=== PATIENT | female | born 2000 | race Caucasian/White ===

== ENCOUNTER 2023-06-12 13:11 | Emergency (ER) | payer MEDICAID, SELFPAY ==
[2023-06-12 13:18] VITALS: BP 155/102; PULSE 98; RESP 15; O2SAT 99; BMI 33.9
--- NOTE | 2023-06-12 13:25 | XR_ITS ---
WS: [id number] EXAMINATION: XR toe LT min 2V [id number] REASON FOR EXAM: injury/trauma; great toe COMPARISON: None available. ORDER DATE: 06/12/2023 1:25 PM FINDINGS: There is no sign of any acute osseous or articular abnormality. There are no specific soft tissue abn ormalities. IMPRESSION: No acute change.
--- NOTE | 2023-06-12 13:25 | W.ED.LOWEXIN ---
HPI - Extremity Injury (Lower) General: Chief Complaint: Extremity Injury, Lower Stated Complaint: left foot toe injury Time Seen by Provider: 06/12/23 13:13 Source: patient Mode of arrival: ambulatory Limitations: no limitations History of Present Illness: Patient is a 23-year-old female presents to ED today for evaluation of a left great toe injury. Patient states her and her were putting together a box spring/bedframe when one of the edges came down on her left great toe partially ripping the toenail off. This occurred two days ago. She states the nail is still attached at the cuticle and she trimmed/cut off the avulsed portion so it wouldn't get caught on anything. She is here secondary to pain. MD complaint: foot injury Onset (ago): day(s) Injury: Left: foot (great toe) Type of Injury: blunt Place: home Severity: moderate Relieving factors: immobilization Exacerbating factors: weight bearing Context: direct blow Associated symptoms: Reports no associated symptoms Other symptoms: none Review of Systems Musc: Reports: extremity pain (L great toe); Denies: extremity swelling Neuro: Denies: numbness in extremities or sensory changes Physical Exam Const: COMMON NORMALS: no acute distress, average body habitus, patient oriented x3, no limitations, alert and well nourished Extremity: COMMON NORMALS: full ROM, capillary refill normal, no joint enlargement, no clubbing, cyanosis or edema and no pedal edema GENERAL: Yes normal exam except as noted LEFT LOWER EXTREMITY: Yes foot & digits OTHER: pt has a partial avulsion to L great nail from nail bed; most of nail has been removed/trimmed by patient; entire nail is still attached at the nail base/fold/no damage to nail matrix; no swelling, redness, warmth, drainage noted Neuro: COMMON NORMALS: patient oriented x3 SENSORIUM/ORIENTATION: Yes alert Course Vital Signs: Vital signs: Vital Signs Pulse Rate 98 06/12/23 13:18 Respiratory Rate 15 06/12/23 13:18 Blood Pressure 155/102 06/12/23 13:18 Pulse Oximetry 99 06/12/23 13:18 Oxygen Delivery Me thod Room Air 06/12/23 13:18 MDM - Extremity Injury (Lower) Medical Decision Making XR negative. No infection. Patient is requesting something for pain-will write for small amount of tylenol 3s. Return to ED precautions given. XR interpretation done by ED provider, pending radiology final review Discharge Plan Discharge Patient Disposition: Home Clinical Impression: Contusion of great toe of left foot Qualifiers: Encounter type: initial encounter Damage to nail status: with damage Qualified Code(s): S90.212A - Contusion of left great toe with damage to nail, initial encounter Nail avulsion of toe Qualifiers: Encounter type: initial encounter Qualified Code(s): S91.209A - Unspecified open wound of unspecified toe(s) with damage to nail, initial encounter Condition: Stable Prescriptions: New acetaminophen-codeine 300-30 mg tablet 1 tab PO Q6H PRN (Reason: pain) Qty: 10 0RF Discharge Orders: Discharge ED (Routine); Ordered 06/12/23 Ordered By: Joellen Milan Activity Restrictions/Additional Instructions: As we discussed begin soaking the toe in Epsom salt or warm soapy water to help prevent infection. Nothing to suggest infection at this time. Monitor for redness, drainage, odor, streaking up your foot or leg, fevers, or any other concerns you may have. Please seek medical reevaluation if these occur. As we discussed your x-ray was negative for fracture. Coding Level of Care Code ED Orientation & Mobility Specialist for Inessa Munoz
== END 2023-06-12 14:19 | disposition home or self-care (01) ==
PROVIDERS: Emergency Provider Physician Assistant
DX: S90.212A Contusion of left great toe with damage to nail, initial encounter (principal); W20.8XXA Other cause of strike by thrown, projected or falling object, initial encounter
CPT/HCPCS: 73660; 99283

== ENCOUNTER 2023-06-13 17:56 | Emergency (ER) | payer MEDICAID, SELFPAY ==
[2023-06-13 18:02] VITALS: BP 168/97; PULSE 92; RESP 16; TEMP 36.7; O2SAT 100; BMI 33.9
--- NOTE | 2023-06-13 18:15 | W.ED.ALLEREA ---
HPI - Allergic Reaction General: Chief complaint: Allergic Reaction Stated complaint: rash Time Seen by Provider: 06/13/23 18:02 History of Present Illness: HPI narrative: 23-year-old female comes in today for complaints of itching. Patient also reports a light rash that comes and goes. This started today after patient took a dose of Tylenol 3. Patient appears nontoxic. Patient appears in mild to no pain. No respiratory difficulty is noted. Patient is alert and oriented. Patient was started on Tylenol 3 yesterday for a injury to the left great toe. Patient 2 days prior had something dropped on her toe which caused the nail to loosen. Exam today notes no redness or erythema to the nail but does have some distal bruising. Patient appears to have onychomycosis with discoloration of the nail and loss of granulation tissue for the nail bed. Associated symptoms: Deny nausea or vomiting Review of Systems Const: Denies: fever(s) GI: Denies: nausea or vomiting Skin/Breast: Reports: other (Nail loss left great toe) Physical Exam Const: COMMON NORMALS: alert Neck/C-Spine: COMMON NORMALS: full ROM Resp: COMMON NORMALS: normal respiratory effort Extremity: COMMON NORMALS: full ROM Neuro: SENSORIUM/ORIENTATION: Yes alert Skin: NARRATIVE SKIN EXAM: Dry skin, abrasions from scratching, no urticaria or obvious rash. Course Vital Signs: Vital signs: Vital Signs Temperature 98.0 F 06/13/23 18:02 Pulse Rate 92 06/13/23 18:02 Respiratory Rate 16 06/13/23 18:02 Blood Pressure 168/97 06/13/23 18:02 Pulse Oximetry 100 06/13/23 18:02 Oxygen Delivery Me thod Room Air 06/13/23 18:02 MDM - Allergic Reaction Medical Decision Making Patient comes in due to itching from the use of codeine. On exam respirations are even lungs are clear to auscultation. Skin is warm and dry. Vital signs are normal. Posterior pharynx is normal. Patient has some dry skin with abrasions from scratching. Differential diagnosis includes itchy skin, eczema, adverse drug effect, allergic reaction, anaphylaxis. No signs of anaphylaxis or severe reaction is noted. Believe the patient probably just has some itchy skin secondary to codeine use. Recommended cessation of codeine. Patient was written a prescription for hydrocodone which she has tolerated before in the past. Recommend follow-up with podiatry for further evaluation of the nail and probable onychomycosis. Patient reported understanding of care plan and need for follow-up or return to the ER. No radiology studies performed this visit Discharge Plan Discharge Patient Disposition: Home Clinical Impression: Nail avulsion of toe, Onychomycosis Adverse drug effect Qualifiers: Encounter type: initial encounter Qualified Code(s): T50.905A - Adverse effect of unspecified drugs, medicaments and biological substances, initial encounter Condition: Stable Prescriptions: New hydrocodone-acetaminophen 5-325 mg tablet 1 tab PO Q6H PRN (Reason: pain (scale score 7-10)) Qty: 7 0RF Discontinued acetaminophen-codeine 300-30 mg tablet 1 tab PO Q6H PRN (Reason: pain) Qty: 10 0RF Discharge Orders: Discharge ED (Routine); Ordered 06/13/23 Ordered By: Ayush Bell Referrals: Jadiel Jacob DPM [Physician] - Discharge Diet: Usual diet Discharge Activity: Increase activity as tolerated Patient Instructions: Itchy Skin (ED), Opioid Safety Activity Restrictions/Additional Instructions: Avoid codeine. Use Claritin, Zyrtec, or Benadryl as needed for itching. Drink plenty of water and fluids. Coating sometimes can cause itching of the skin although it does not appear to be a true allergy but it can be very bothersome. I would recommend avoiding codeine. Use acetaminophen and ibuprofen to control pain. We can try some hydrocodone for severe pain. Drink plenty of water and fluids with medication. Use an emollient lotion to help with the itching and discomfort. Follow-up with primary care for further instructions. Follow-up with podiatry for further evaluation of your toenail fungus. Coding Level of Care Code ED Training And Documentation Specialist for Inessa Munoz
== END 2023-06-13 18:43 | disposition home or self-care (01) ==
PROVIDERS: Emergency Provider Nurse Practitioner Family
DX: B35.1 Tinea unguium (principal); S91.202A Unspecified open wound of left great toe with damage to nail, initial encounter; T40.2X5A Adverse effect of other opioids, initial encounter; X58.XXXA Exposure to other specified factors, initial encounter
CPT/HCPCS: 99283

== ENCOUNTER 2023-07-22 21:02 | Emergency (ER) | payer MEDICAID, SELFPAY ==
[2023-07-22 21:09] VITALS: BP 152/92; PULSE 105; RESP 18; TEMP 36.4; O2SAT 100; BMI 33.9
--- NOTE | 2023-07-22 21:22 | USR_ITS ---
PROCEDURE INFORMATION: Exam: US Pelvis Complete, Transabdominal and US Pelvis, Transvaginal Exam date and time: 07/22/2023 9:46 PM Age: 23 years old Clinical indication: Pelvic pain; Patient HX: Is this patient . Patient denies possibility but quant hcg = 1.0. Is this artifactual ? ; additional info: Abd pain/vag bleeding LABS AND CLINICAL REPORTS: Serum Choriogonadotropin (HCG): 1 mIU/mL Last menstrual period start date: 07/10/2023 TECHNIQUE: Imaging protocol: Real-time complete transabdominal and transvaginal pelvic ultrasound with image documentation. Transvaginal imaging was used for better evaluation of the endometrium, adnexa, and/or cervix. COMPARISON: US pelvic complete* [id number] 12/05/2017 8:38 PM FINDINGS: Uterus: Uterus measures 9.8 cm x 4.8 cm x 3 cm. Endometrial thickness 4.6 mm. Anterior myometrial fibroids measuring 1.6 cm and 1.4 cm Right ovary/adnexa: Right ovary measures 6.4 cm x 6.5 cm x 5.1 cm. Right ovarian volume is 110 mL. 5.9 cm simple anechoic right ovarian cyst. Normal parenchymal blood flow. Left ovary/adnexa: Left ovary measures 2.7 cm x 2.2 cm x 2.8 cm. Left ovarian volume is 8.6 mL. Normal parenchymal blood flow. Intraperitoneal space: Small amount of right adnexal fluid. Urinary bladder: Normal. US/US pelvic complete* [id number] IMPRESSION: 1. 5.9 cm anechoic right ovarian cyst. Benign simple cyst. Clinically inconsequential finding. No follow-up is needed. (Reference: Vee, 2019) 2. No intrauterine or ectopic gestation visualized. References: Vee Schumacher, et al. Simple Adnexal Cysts: SRU Consensus Conference Update on Follow-up and Reporting. Radiology. 2019;293(2):359-371.
--- NOTE | 2023-07-22 21:23 | W.ED.FEMALGU ---
HPI - Female Genitourinary General: Chief complaint: Vaginal Bleeding Stated complaint: abdominal pain, heavy bleeding Time Seen by Provider: 07/22/23 21:13 Source: patient Mode of arrival: ambulatory Limitations: no limitations History of Present Illness: 23-year-old female states that she started having some lower abdominal cramping roughly 2 hours ago she had a she states a gush of blood of vaginal bleeding that ran down her legs states the bleeding has since stopped but she some lower abdominal pain she rates a 6 out of 10 she has had a history of ovarian cyst she does not believe that she is . Denies any fevers. Associated symptoms: Reports abdominal pain; Deny headache(s) or nausea Review of Systems Const: Denies: fever(s), chills, body aches or change in appetite ENMT: Denies: throat pain or dental pain Card: Denies: chest pain Resp: Denies: dyspnea GI: Reports: abdominal pain; Denies: nausea, vomiting or diarrhea : Reports: vaginal bleeding; Denies: dysuria Musc: Denies: neck pain or back pain Skin/Breast: Denies: rash Neuro: Denies: headache(s) Physical Exam Const: COMMON NORMALS: no acute distress, patient oriented x3 and healthy appearing HENMT: COMMON NORMALS: normocephalic and atraumatic HEAD & SCALP: normocephalic and atraumatic Eye: COMMON NORMALS: Equal, round and reactive pupils present and EOMs intact bilaterally PUPIL: Yes Equal, round and reactive pupils present Neck/C-Spine: COMMON NORMALS: full ROM and supple Chest: COMMONS NORMALS: normal inspection of the chest and normal palpation of entire chest wall Resp: COMMON NORMALS: normal respiratory effort, No retractions, No use of accessory muscles and clear to auscultation bilaterally AUSCULTATION: clear to auscultation bilaterally Cardio: COMMON NORMALS: regular rate, regular rhythm and No murmurs present (Cardio) RATE: regular rate RHYTHM: regular rhythm GI: COMMON NORMALS: Normal to inspection, nondistended, normoactive bowel sounds present, Soft to palpation, non-tender and no masses PALPATION: Yes Soft to palpation Extremity: COMMON NORMALS: normal to inspection and full ROM Neuro: COMMON NORMALS: patient oriented x3, moves all extremities and no focal motor deficits Psych: COMMON NORMALS: mental status grossly normal, Normal thought process present and cooperative THOUGHT PROCESS: Normal thought process present Skin: COMMON NORMALS: no rashes or lesions noted and no wounds GENERAL SKIN EXAM: no rashes or lesions noted Course Vital Signs: Vital signs: Vital Signs Temperature 97.6 F 07/22/23 21:09 Pulse Rate 78 07/22/23 22:22 Respiratory Rate 16 07/22/23 22:22 Blood Pressure 133/57 07/22/23 22:22 Pulse Oximetry 96 07/22/23 22:22 MDM - Female Medical Decision Making Patient presents with abdominal pain along with vaginal bleeding she is not white counts normal ultrasound did show a right ovarian cyst likely causing her pain she has no signs of appendicitis her pain has improved here we will prescribe her pain meds we will get her follow-up with OB she is return if worsening she understands agree to plan Medical Records I reviewed the patient's medical records. Lab Data I reviewed the patient's lab results. 07/22/23 21:42 07/22/23 21:42 Radiology Impressions Pelvis Ultrasound 07/22/23 21:22 IMPRESSION: 1. 5.9 cm anechoic right ovarian cyst. Benign simple cyst. Clinically inconsequential finding. No follow-up is needed. (Reference: Vee, 2019) 2. No intrauterine or ectopic gestation visualized. References: Vee Schumacher, et al. Simple Adnexal Cysts: SRU Consensus Conference Update on Follow-up and Reporting. Radiology. 2019;293(2):359-371. Laboratory Results WBC 9.20 10^3/uL (3.29-11.43) 07/22/23 21:42 RBC 4.74 10^6/uL (3.85-5.65) 07/22/23 21:42 Hgb 12.00 g/dL (11.27-16.99) 07/22/23 21:42 Hct 38.3 % (36-47) 07/22/23 21:42 MCV 80.8 fl (85-98) L 07/22/23 21:42 MCH 25.3 pg (27-33) L 07/22/23 21:42 MCHC 31.3 g/dL (30-55) 07/22/23 21:42 RDW 17.2 % (12.1-15.1) H 07/22/23 21:42 Plt Count 315 10^3/cmm (157-399) 07/22/23 21:42 MPV 10.5 fL (7.4-10.4) H 07/22/23 21:42 Neut % (Auto) 65.5 % 07/22/23 21:42 Lymph % (Auto) 27.1 % 07/22/23 21:42 [place] % (Auto) 4.9 % 07/22/23 21:42 Eos % (Auto) 1.5 % 07/22/23 21:42 Baso % (Auto) 0.7 % 07/22/23 21:42 Neut # (Auto) 6.03 10^3/uL (1.8-7.7) 07/22/23 21:42 Lymph # (Auto) 2.5 10^3/uL (0.8-4.8) 07/22/23 21:42 [place] # (Auto) 0.5 10^3/uL (0.2-0.9) 07/22/23 21:42 Eos # (Auto) 0.1 10^3/uL (0.0-0.8) 07/22/23 21:42 Baso # (Auto) 0.1 10^3/uL (0.0-0.1) 07/22/23 21:42 Nucleated RBC % (auto) 0 % 07/22/23 21:42 Nucleated RBCs # 0.0 /100WBC 07/22/23 21:42 Sodium 141 mmol/L (136-145) 07/22/23 21:42 Potassium 3.7 mmol/L (3.5-5.1) 07/22/23 21:42 Chloride 107 mmol/L (98-107) 07/22/23 21:42 Carbon Dioxide 22 mmol/L (22-29) 07/22/23 21:42 Anion Gap 15.7 (5-19) 07/22/23 21:42 BUN 9 mg/dL (6-20) 07/22/23 21:42 Creatinine 0.6 mg/dL (0.5-0.9) 07/22/23 21:42 GFR Calculation 121.8 mL/min (90-130) 07/22/23 21:42 Glucose 114 mg/dL (65-115) 07/22/23 21:42 Calculated Osmolality 292 mOsm/kg (285-295) 07/22/23 21:42 Calcium 9.4 mg/dL (8.5-10.5) 07/22/23 21:42 Total Bilirubin 0.2 mg/dL (0.15-1.2) 07/22/23 21:42 AST 24 U/L (0-32) 07/22/23 21:42 ALT 28 U/L (0-33) 07/22/23 21:42 Alkaline Phosphatase 86 U/L (35-105) 07/22/23 21:42 Total Protein 7.4 g/dL (6.6-8.7) 07/22/23 21:42 Albumin 4.2 g/dL (3.5-5.2) 07/22/23 21:42 Globulin 3.2 g/dL (1.3-4.6) 07/22/23 21:42 Ser , Semi-Qnt 1.00 mIU/mL 07/22/23 21:42 All radiology interpretation(s) finalized by discharge Discharge Plan Discharge Patient Disposition: Home Clinical Impression: Ovarian cyst Condition: Stable Prescriptions: Continued hydrocodone-acetaminophen 5-325 mg tablet 1 tab PO Q6H PRN (Reason: pain (scale score 7-10)) Qty: 7 0RF Discharge Orders: Discharge ED (Routine); Ordered 07/22/23 Ordered By: Sherley Sapp Referrals: Guillaume Cueto MD [Physician] - 1-3 days Discharge Diet: Advance as tolerated Discharge Activity: Resume usual activity Patient Instructions: Ovarian Cyst (ED) Coding Level of Care Code ED Roller Inspector for Inessa Munoz
[2023-07-22] MEDS: sodium chloride 0.9% 1,000 ML 999 ML IV (21:34)
[2023-07-22] MEDS: ondansetron 2 mg/ML SDV 2 mL 4 MG IVP (21:34)
[2023-07-22] MEDS: morphine 4 mg/mL SDV 1 mL IVP (21:34)
[2023-07-22 21:47] LABS: Basophils # 0.1 10^3/uL (0.0-0.1); Basophils % 0.7 %; Eosinophils # 0.1 10^3/uL (0.0-0.8); Eosinophils % 1.5 %; Hematocrit 38.3 % (36-47); Lymphocytes # 2.5 10^3/uL (0.8-4.8); Lymphocytes % 27.1 %; Mean Corpuscular HGB Conc 31.3 g/dL (30-55); Mean Corpuscular Hemoglobin 25.3 pg (27-33); Mean Corpuscular Volume 80.8 fl (85-98); Mean Platelet Volume 10.5 fL (7.4-10.4); Monocytes # 0.5 10^3/uL (0.2-0.9); Monocytes % 4.9 %; Neutrophils # 6.03 10^3/uL (1.8-7.7); Neutrophils % 65.5 %; Nucleated Red Blood Cells % 0 %; Platelet Count 315 10^3/cmm (157-399); Red Blood Count 4.74 10^6/uL (3.85-5.65); Red Cell Distribution Width 17.2 % (12.1-15.1)
[2023-07-22 21:56] VITALS: BP 150/105; PULSE 88; RESP 16; O2SAT 97
[2023-07-22 22:14] LABS: Alanine Aminotransferase 28 U/L (0-33); Albumin Level 4.2 g/dL (3.5-5.2); Alkaline Phosphatase 86 U/L (35-105); Anion Gap 15.7 (5-19); Aspartate Amino Transferase 24 U/L (0-32); Blood Urea Nitrogen 9 mg/dL (6-20); Calcium 9.4 mg/dL (8.5-10.5); Carbon Dioxide 22 mmol/L (22-29); Chloride 107 mmol/L (98-107); Globulin 3.2 g/dL (1.3-4.6); Glomerular Filtration Rate 121.8 mL/min (90-130); Glucose 114 mg/dL (65-115); Osmolality Calculated 292 mOsm/kg (285-295); Potassium 3.7 mmol/L (3.5-5.1); Sodium 141 mmol/L (136-145); Total Bilirubin 0.2 mg/dL (0.15-1.2); Total Protein 7.4 g/dL (6.6-8.7)
[2023-07-22 22:22] VITALS: BP 133/57; PULSE 78; RESP 16; O2SAT 96
[2023-07-22] MEDS: HYDROmorphone 1 mg/mL INJ 1 mL IVP (23:24)
[2023-07-22] MEDS: HYDROcodone-acetaminophen 5-325 mg Tablet 1 TAB PO (23:48)
[2023-07-22 23:49] VITALS: BP 133/57; PULSE 78; RESP 16; TEMP 36.4; O2SAT 96
--- NOTE | 2023-07-23 07:16 | DCPLANNER ---
Message sent to OBGYN clinic for follow up on ovarian cysts.
== END 2023-07-22 23:51 | disposition home or self-care (01) ==
PROVIDERS: Emergency Provider Emergency Medicine
DX: N83.291 Other ovarian cyst, right side (principal)
CPT/HCPCS: 76856; 80053; 84702; 85025; 96361; 96374; 96375; 99284; J1170; J2270; J2405; J7030

== ENCOUNTER → 2023-08-05 16:34 | Outpatient (BNVA) | payer MEDICAID, SELFPAY | PROVIDERS: Referring Provider Emergency Medicine; Visit Provider Obstetrics & Gynecology | DX: Z12.4 Encounter for screening for malignant neoplasm of cervix (principal); Z32.00 Encounter for pregnancy test, result unknown; Z30.9 Encounter for contraceptive management, unspecified | CPT/HCPCS: 81025; 87624 ==

== ENCOUNTER 2023-08-13 09:43 | Emergency (ER) | payer MEDICAID, SELFPAY ==
[2023-08-13 09:47] VITALS: BP 164/97; PULSE 109; RESP 16; TEMP 37.1; O2SAT 99; BMI 35.5
--- NOTE | 2023-08-13 09:50 | ED_ITS ---
HPI - Abdominal Pain 2 General: Chief Complaint: Abdominal Pain Stated Complaint: abd pain Time Seen by Provider: 08/13/23 09:46 Source: patient Mode of arrival: ambulatory Limitations: no limitations History of Present Illness: 23-year-old female states that she has b een having right lower quadrant pain since morning. States pains been sharp in nature rates it a 7 out of 10 she denies any radiation of her pain denies any dysuria denies any vomiting or fevers. Does have a history of ovarian cysts. Associated Symptoms: Denies chills, diarrhea, dysuria, fever(s), nausea and vomiting Review of Systems 2 Const: Denies: fever(s), chills, body aches or change in appetite Eyes: Denies: blurry vision or eye discomfort ENMT: Denies: throat pain or dental pain Card: Denies: chest pain Resp: Denies: dyspnea GI: Reports: abdominal pain; Denies: nausea, vomiting or diarrhea : Denies: dysuria Musc: Denies: neck pain or back pain Skin/Breast: Denies: rash Neuro: Denies: headache(s) PFSH ED 2 PFSH: Medical History Psychiatric care Family History Denies family history of Colon cancer Ovarian cancer Diabetes Heart disease Breast cancer Hypertension Uterine cancer Thyroid disease Stroke Physical Exam 2 Const: COMMON NORMALS: no acute distress, patient oriented x3 and healthy appearing HENMT: COMMON NORMALS: normocephalic and atraumatic HEAD & SCALP: n ormocephalic and atraumatic Eye: COMMON NORMALS: Equal, round and reactive pupils present and EOMs intact bilaterally PUPIL: Yes Equal, round and reactive pupils present Neck/C-Spine: COMMON NORMALS: full ROM and supple Chest: COMMONS NORMALS: normal inspection of the chest Resp: COMMON NORMALS: normal respiratory effort Cardio: COMMON NORMALS: regular rate, regular rhythm and No murmurs present (Cardio) RATE: regular rate RHYTHM: regular rhythm GI: COMMON NORMALS: Normal to inspection, nondistended, normoactive bowel sounds present, Soft to palpation and no masses PALPATION: Yes Soft to palpation and Yes Tenderness to palpation present (GI) Details: RLQ Extremity: COMMON NORMALS: normal to inspection and full ROM Neuro: COMMON NORMALS: patient oriented x3, moves all extremities and no focal motor deficits Psych: COMMON NORMALS: mental status grossly normal, Normal thought process present and cooperative THOUGHT PROCESS: Normal thought process present Skin: COMMON NORMALS: no rashes or lesions noted and no wounds GENERAL SKIN EXAM: no rashes or lesions noted Course 2 Vital Signs: Vital signs: Vital Signs Temperature 98.7 F 08/13/23 09:47 Pulse Rate 109 H 08/13/23 09:47 Respiratory Rate 16 08/13/23 09:47 Blood Pressure 164/97 08/13/23 09:47 Pulse Oximetry 99 08/13/23 09:47 Oxygen Delivery Me thod Room Air 08/13/23 09:47 MDM - Abdominal Pain Medical Decision Making Patient presents here with abdominal pain CT scan blood work here is all normal she is well-appearing here exam is benign she is stable for discharge she is to follow-up with PCP and return if worsening. Medical Records I reviewed the patient's medical records. Lab Data I reviewed the patient's lab results. 08/13/23 10:05 08/13/23 10:05 Labs/Radiology: Laboratory Results WBC 9.12 10^3/uL (3.29-11.43) 08/13/23 10:05 RBC 4.81 10^6/uL (3.85-5.65) 08/13/23 10:05 Hgb 12.30 g/dL (11.27-16.99) 08/13/23 10:05 Hct 39.6 % (36-47) 08/13/23 10:05 MCV 82.3 fl (85-98) L 08/13/23 10:05 MCH 25.6 pg (27-33) L 08/13/23 10:05 MCHC 31.1 g/dL (30-55) 08/13/23 10:05 RDW 17.0 % (12.1-15.1) H 08/13/23 10:05 Plt Count 281 10^3/cmm (157-399) 08/13/23 10:05 MPV 10.6 fL (7.4-10.4) H 08/13/23 10:05 Neut % (Auto) 73.9 % 08/13/23 10:05 Lymph % (Auto) 18.8 % 08/13/23 10:05 [place] % (Auto) 5.4 % 08/13/23 10:05 Eos % (Auto) 1.1 % 08/13/23 10:05 Baso % (Auto) 0.5 % 08/13/23 10:05 Neut # (Auto) 6.74 10^3/uL (1.8-7.7) 08/13/23 10:05 Lymph # (Auto) 1.7 10^3/uL (0.8-4.8) 08/13/23 10:05 [place] # (Auto) 0.5 10^3/uL (0.2-0.9) 08/13/23 10:05 Eos # (Auto) 0.1 10^3/uL (0.0-0.8) 08/13/23 10:05 Baso # (Auto) 0.1 10^3/uL (0.0-0.1) 08/13/23 10:05 Nucleated RBC % (auto) 0 % 08/13/23 10:05 Nucleated RBCs # 0.0 /100WBC 08/13/23 10:05 Sodium 143 mmol/L (136-145) 08/13/23 10:05 Potassium 4.1 mmol/L (3.5-5.1) 08/13/23 10:05 Chloride 110 mmol/L (98-107) H 08/13/23 10:05 Carbon Dioxide 24 mmol/L (22-29) 08/13/23 10:05 Anion Gap 13.1 (5-19) 08/13/23 10:05 BUN 7 mg/dL (6-20) 08/13/23 10:05 Creatinine 0.7 mg/dL (0.5-0.9) 08/13/23 10:05 GFR Calculation 102.0 mL/min (90-130) 08/13/23 10:05 Glucose 107 mg/dL (65-115) 08/13/23 10:05 Calculated Osmolality 294 mOsm/kg (285-295) 08/13/23 10:05 Calcium 9.1 mg/dL (8.5-10.5) 08/13/23 10:05 Total Bilirubin 0.2 mg/dL (0.15-1.2) 08/13/23 10:05 AST 17 U/L (0-32) 08/13/23 10:05 ALT 18 U/L (0-33) 08/13/23 10:05 Alkaline Phosphatase 87 U/L (35-105) 08/13/23 10:05 Total Protein 6.8 g/dL (6.6-8.7) 08/13/23 10:05 Albumin 4.0 g/dL (3.5-5.2) 08/13/23 10:05 Globulin 2.8 g/dL (1.3-4.6) 08/13/23 10:05 Lipase 22 U/L (13-60) 08/13/23 10:05 HCG, Qual Negative (Negative) 08/13/23 10:05 All radiology interpretation(s) finalized by discharge Discharge Plan Discharge Patient Disposition: Home Clinical Impression: Abdominal pain Qualifiers: Abdominal location: right lower quadrant Qualified Code(s): R10.31 - Right lower quadrant pain Condition: Stable Prescriptions: New hydrocodone-acetaminophen 5-325 mg tablet 1 tab PO Q6H PRN (Reason: pain) Qty: 14 0RF ondansetron 4 mg tablet,disintegrating 4 mg PO Q6H PRN (Reason: nausea and vomiting) Qty: 14 0RF Discharge Orders: Discharge ED (Routine); Ordered 08/13/23 Ordered By: Sherley Sapp Referrals: Hieu Garvin MD [Primary Care Provider] - 1-3 days Discharge Diet: Advance as tolerated Discharge Activity: Resume usual activity Patient Instructions: Abdominal Pain (ED), Opioid Safety Coding Level of Care Code ED Radiology Aide for Inessa Munoz
--- NOTE | 2023-08-13 10:18 | CT_ITS ---
WS: [id number] CT ABDOMEN AND PELVIS WITH CONTRAST HISTORY: RIGHT lower quadrant abdominal pain. TECHNIQUE: Imaging performed of the abdomen and pelvis with IV contrast. Single phase imaging of the abdomen. Coronal and sagittal reformats are submitted. All CT scans at [facility] use at [address] one of these dose optimization techniques: automated exposure control; mA and/or kV adjustment per patient size (includes targeted exams where dose is matched to clinical indication); or iterative re construction. IV CONTRAST: Omnipaque 350; 100 mL IV. Oral contrast: No DLP: 1012.50 mGy.cm COMPARISON: 08/11/2018 Lower thorax: Lung bases are clear. Heart is normal size. No hiatal hernia. Liver/biliary system: Focal fatty sparing along the falciform ligament. Otherwise negative. Gallbladder: Normal. No gallstones or wall thickening. No pericholecystic fluid. Pancreas: Normal size pancreas and pancreatic duct. No adjacent inflammation. Spleen: Normal size spleen. No mass or infarct. Adrenal glands: Normal. Right kidney: Normal. Left kidney: Normal. Aorta: Normal. Lymphadenopathy: Numerous but small central mesenteric and RIGHT lower quadrant lymph nodes. Free fluid: None. GI tract: Normally distended stomach. No small bowel obstruction. Normal appendix. No submucosal shanti a or hyperemia. No diverticular disease. Abdominal wall: Fat containing umbilical hernia. Pelvis: No free fluid or adenopathy within the pelvis. Bones: Unremarkable. IMPRESSION: 1. No evidence for appendicitis or acute gastroenteritis. 2. No renal obstruction. 3. There are a few very small mesenteric and RIGHT lower quadrant lymph nodes which which can be see n with mesenteric adenitis. These were also present on the study of 08/11/2018.
[2023-08-13 10:19] LABS: Basophils # 0.1 10^3/uL (0.0-0.1); Basophils % 0.5 %; Eosinophils # 0.1 10^3/uL (0.0-0.8); Eosinophils % 1.1 %; Hematocrit 39.6 % (36-47); Lymphocytes # 1.7 10^3/uL (0.8-4.8); Lymphocytes % 18.8 %; Mean Corpuscular HGB Conc 31.1 g/dL (30-55); Mean Corpuscular Hemoglobin 25.6 pg (27-33); Mean Corpuscular Volume 82.3 fl (85-98); Mean Platelet Volume 10.6 fL (7.4-10.4); Monocytes # 0.5 10^3/uL (0.2-0.9); Monocytes % 5.4 %; Neutrophils # 6.74 10^3/uL (1.8-7.7); Neutrophils % 73.9 %; Nucleated Red Blood Cells % 0 %; Platelet Count 281 10^3/cmm (157-399); Red Blood Count 4.81 10^6/uL (3.85-5.65); White Blood Count 9.12 10^3/uL (3.29-11.43)
[2023-08-13 10:30] LABS: HCG, Serum Qual Negative (Negative)
[2023-08-13 10:32] LABS: Alanine Aminotransferase 18 U/L (0-33); Alkaline Phosphatase 87 U/L (35-105); Anion Gap 13.1 (5-19); Aspartate Amino Transferase 17 U/L (0-32); Blood Urea Nitrogen 7 mg/dL (6-20); Calcium 9.1 mg/dL (8.5-10.5); Carbon Dioxide 24 mmol/L (22-29); Chloride 110 mmol/L (98-107); Globulin 2.8 g/dL (1.3-4.6); Glucose 107 mg/dL (65-115); Lipase 22 U/L (13-60); Osmolality Calculated 294 mOsm/kg (285-295); Potassium 4.1 mmol/L (3.5-5.1); Sodium 143 mmol/L (136-145); Total Bilirubin 0.2 mg/dL (0.15-1.2); Total Protein 6.8 g/dL (6.6-8.7)
[2023-08-13] MEDS: iohexol 350 mg/mL 500 mL Btl (per mL) IV (10:54)
== END 2023-08-13 11:30 | disposition home or self-care (01) ==
PROVIDERS: Emergency Provider Emergency Medicine; PCP Family Medicine
DX: R10.31 Right lower quadrant pain (principal)
CPT/HCPCS: 36415; 74177; 80053; 83690; 84703; 85025; 99285; Q9967

== ENCOUNTER 2023-08-26 23:36 | Emergency (ER) | payer MEDICAID, SELFPAY ==
[2023-08-26 23:52] VITALS: BP 139/80; PULSE 84; RESP 16; TEMP 36.9; O2SAT 98; BMI 33.9
[2023-08-27 00:41] LABS: Basophils # 0.1 10^3/uL (0.0-0.1); Basophils % 0.9 %; Eosinophils # 0.1 10^3/uL (0.0-0.8); Eosinophils % 1.3 %; Hematocrit 36.2 % (36-47); Lymphocytes # 2.8 10^3/uL (0.8-4.8); Lymphocytes % 33.7 %; Mean Corpuscular HGB Conc 31.5 g/dL (30-55); Mean Corpuscular Hemoglobin 25.9 pg (27-33); Mean Corpuscular Volume 82.3 fl (85-98); Mean Platelet Volume 11.5 fL (7.4-10.4); Monocytes # 0.6 10^3/uL (0.2-0.9); Monocytes % 7.6 %; Neutrophils % 56.4 %; Nucleated Red Blood Cells % 0 %; Platelet Count 214 10^3/cmm (157-399); Red Cell Distribution Width 17.3 % (12.1-15.1); White Blood Count 8.16 10^3/uL (3.29-11.43)
--- NOTE | 2023-08-27 01:06 | ED_ITS ---
HPI - Female Genitourinary 2 General: Chief complaint: Urogenital-Female Stated complaint: Bleeding and Ovarian Cyst Time Seen by Provider: 08/26/23 23:42 History of Present Illness: Patient presents to the ER with complaints of heavy vaginal bleeding and ovarian cyst pain. Patient said her normal period ended 4 to 5 days ago. She started to have bleeding heavily today with through 3 diaper pads almost passed out and is also having nausea. Patient does states she sees Dr. Cueto and is going to have surgery on this in approximately 2 days. Our goal is just to get her pain under control so she can go have the surgery. Patient is already taken naproxen at home with no relief. Date of Last Menstrual Period: 08/16/23 Review of Systems 2 General: Reports: 10 or more systems reviewed and unremarkable except in HPI and below PFSH ED 2 PFSH: Medical History Psychiatric care Family History Denies family history of Colon cancer Ovarian cancer Diabetes Heart disease Breast cancer Hypertension Uterine cancer Thyroid disease Stroke Female Reproductive History: Date of last menstrual period: 08/16/23 Physical Exam 2 Const: COMMON NORMALS: no acute distress, average body habitus, patient oriented x3, no limitations, healthy appearing, alert and well nourished HENMT: COMMON NORMALS: normocephalic, atraumatic, hearing grossly normal bilaterally, external ears normal, Normal external nose present, moist oral mucous membranes and oropharynx normal HEAD & SCALP: normocephalic and atraumatic NOSE: Normal external nose present EXTERNAL EAR: Yes external ears normal Neck/C-Spine: COMMON NORMALS: no JVD Chest: COMMONS NORMALS: normal inspection of the chest and normal palpation of entire chest wall Resp: COMMON NORMALS: normal respiratory effort, No retractions, No use of accessory muscles and clear to auscultation bilaterally AUSCULTATION: clear to auscultation bilaterally Cardio: COMMON NORMALS: no JVD, regular rate, regular rhythm, S1 normal heart sound present, S2 normal heart sound present, No gallops present (Cardio), No clicks present (Cardio), No murmurs present (Cardio) and No rub (Cardio) R ATE: regular rate RHYTHM: regular rhythm HEART SOUNDS: S1 normal heart sound present and S2 normal heart sound present GI: COMMON NORMALS: Normal to inspection, nondistended, normoactive bowel sounds present, Soft to palpation, non-tender, No hepatosplenomegaly present and no masses PALPATION: Yes Soft to palpation and Yes No hepatosplenomegaly present Neuro: COMMON NORMALS: patient oriented x3 SENSORIUM/ORIENTATION: Yes alert Course 2 Vital Signs: Vital signs: Vital Signs Temperature 98.4 F 08/26/23 23:52 Pulse Rate 84 08/26/23 23:52 Respiratory Rate 16 08/26/23 23:52 Blood Pressure 139/80 08/26/23 23:52 Pulse Oximetry 98 08/26/23 23:52 Oxygen Delivery Me thod Room Air 08/26/23 23:52 MDM - Female Medical Decision Making Patient has a known ovarian cyst. Patient's been having menorrhagia heavy today. Patient has a appointment already for surgery by Dr. Cueto in 2 days. Patient was given Cornell to control pain here. Patient will be discharged home with a prescription for Cornell and is to keep her appointment with Dr. Cueto. Differential Diagnosis Unlikely abdominal pain, acute appendicitis, calculus of kidney, constipation, diverticulitis, endometriosis, gastroenteritis, pancreatitis or small bowel obstruction Medical Records I reviewed the patient's medical records. Lab Data I reviewed the patient's lab results. 08/27/23 00:27 08/27/23 00:27 Laboratory Results WBC 8.16 10^3/uL (3.29-11.43) 08/27/23 00:27 RBC 4.40 10^6/uL (3.85-5.65) 08/27/23 00:27 Hgb 11.40 g/dL (11.27-16.99) 08/27/23 00:27 Hct 36.2 % (36-47) 08/27/23 00: MCV 82.3 fl (85-98) L 08/27/23 00:27 MCH 25.9 pg (27-33) L 08/27/23 00: MCHC 31.5 g/dL (30-55) 08/27/23 00: RDW 17.3 % (12.1-15.1) H 08/27/23 00:27 Plt Count 214 10^3/cmm (157-399) 08/27/23 00: MPV 11.5 fL (7.4-10.4) H 08/27/23 00:27 Neut % (Auto) 56.4 % 08/27/23 00: Lymph % (Auto) 33.7 % 08/27/23 00: [place] % (Auto) 7.6 % 08/27/23 00: Eos % (Auto) 1.3 % 08/27/23 00: Baso % (Auto) 0.9 % 08/27/23 00: Neut # (Auto) 4.60 10^3/uL (1.8-7.7) 08/27/23 00: Lymph # (Auto) 2.8 10^3/uL (0.8-4.8) 08/27/23 00: [place] # (Auto) 0.6 10^3/uL (0.2-0.9) 08/27/23 00: Eos # (Auto) 0.1 10^3/uL (0.0-0.8) 08/27/23 00: Baso # (Auto) 0.1 10^3/uL (0.0-0.1) 08/27/23 00: Nucleated RBC % (auto) 0 % 08/27/23 00: Nucleated RBCs # 0.0 /100WBC 08/27/23 00: Sodium 141 mmol/L (136-145) 08/27/23 00: Potassium 4.0 mmol/L (3.5-5.1) 08/27/23 00: Chloride 108 mmol/L (98-107) H 08/27/23 00: Carbon Dioxide 24 mmol/L (22-29) 08/27/23 00: Anion Gap 13.0 (5-19) 08/27/23 00: BUN 10 mg/dL (6-20) 08/27/23 00: Creatinine 0.7 mg/dL (0.5-0.9) 08/27/23 00: GFR Calculation 102.0 mL/min (90-130) 08/27/23 00: Glucose 103 mg/dL (65-115) 08/27/23 00: Calculated Osmolality 291 mOsm/kg (285-295) 08/27/23 00:27 Calcium 9.2 mg/dL (8.5-10.5) 08/27/23 00:27 Total Bilirubin 0.2 mg/dL (0.15-1.2) 08/27/23 00:27 AST 16 U/L (0-32) 08/27/23 00:27 ALT 14 U/L (0-33) 08/27/23 00:27 Alkaline Phosphatase 74 U/L (35-105) 08/27/23 00:27 Total Protein 6.9 g/dL (6.6-8.7) 08/27/23 00:27 Albumin 4.0 g/dL (3.5-5.2) 08/27/23 00:27 Globulin 2.9 g/dL (1.3-4.6) 08/27/23 00:27 No radiology studies performed this visit Discharge Plan Discharge Patient Disposition: Home Clinical Impression: Ovarian cyst Qualifiers: Laterality: unspecified laterality Qualified Code(s): N83.209 - Unspecified ovarian cyst, unspecified side Menorrhagia Qualifiers: Menorrhagia type: with irregular cycle Qualified Code(s): N92.1 - Excessive and frequent menstruation with irregular cycle Condition: Stable Prescriptions: No Action escitalopram oxalate [Lexapro] 20 mg tablet 20 mg PO DAILY Qty: 30 1RF trazodone 50 mg tablet 100 mg PO .HS PRN (Reason: insomnia) Qty: 60 1RF propranolol 20 mg tablet 20 mg PO BID PRN (Reason: anxiety) Qty: 60 1RF hydrocodone-acetaminophen 5-325 mg tablet 1 tab PO Q6H PRN (Reason: pain) Qty: 14 0RF ondansetron 4 mg tablet,disintegrating 4 mg PO Q6H PRN (Reason: nausea and vomiting) Qty: 14 0RF Discharge Orders: Discharge ED (Routine); Ordered 08/27/23 Ordered By: Jamie Jose Referrals: Hieu Garvin MD [Primary Care Provider] - 1 week Patient Instructions: Ovarian Cyst (ED), Menorrhagia (ED), Opioid Safety, Pain Management Activity Restrictions/Additional Instructions: Please take your pain medicine as directed. Please follow keep your appointment with Dr. Cueto for surgery on . Please call his office first thing in the morning to discuss your pain and to get his recommendations. Coding Level of Care Code ED [employer] Instructor for Inessa Munoz
[2023-08-27] MEDS: HYDROcodone-acetaminophen 5-325 mg Tablet 1 TAB PO ×2 (01:08→01:57)
[2023-08-27 01:09] LABS: Alanine Aminotransferase 14 U/L (0-33); Alkaline Phosphatase 74 U/L (35-105); Aspartate Amino Transferase 16 U/L (0-32); Blood Urea Nitrogen 10 mg/dL (6-20); Calcium 9.2 mg/dL (8.5-10.5); Carbon Dioxide 24 mmol/L (22-29); Chloride 108 mmol/L (98-107); Creatinine Clr Calc Pharmacy 142.9043; Globulin 2.9 g/dL (1.3-4.6); Glucose 103 mg/dL (65-115); Osmolality Calculated 291 mOsm/kg (285-295); Sodium 141 mmol/L (136-145); Total Bilirubin 0.2 mg/dL (0.15-1.2); Total Protein 6.9 g/dL (6.6-8.7)
[2023-08-27 03:49] VITALS: BP 137/91; PULSE 53; RESP 16; O2SAT 100
[2023-08-27 03:50] VITALS: BP 137/91; PULSE 53; RESP 16; O2SAT 100
== END 2023-08-27 03:51 | disposition home or self-care (01) ==
PROVIDERS: Emergency Provider Emergency Medicine; PCP Family Medicine
DX: N92.1 Excessive and frequent menstruation with irregular cycle (principal); N83.209 Unspecified ovarian cyst, unspecified side
CPT/HCPCS: 36415; 80053; 85025; 99283

== ENCOUNTER 2023-08-28 09:47 | Day surgery (SDC) | payer MEDICAID, SELFPAY ==
[2023-08-28] VITALS (19 sets, daily range): BP systolic 131–165; BP diastolic 72–101; PULSE 67–129; RESP 10–22; TEMP 36.1–36.8; O2SAT 94–100; BMI 30.6
--- NOTE | 2023-08-28 03:05 | W.PM.OPSFHP ---
Same Day Surgery H&P Indication for Procedure/HPI DATE OF PROCEDURE: August 28, 2023 CHIEF COMPLAINT/INDICATIONFOR SURGICAL PROCEDURE: abnormal uterine bleeding abnormal pap PREOP DIAGNOSIS: abnormal uterine bleeding; abnormal pap PLANNED PROCEDURE: Operation Date: 08/28/23 11:15 Proposed Procedures p Hysteroscopy, endometrial sampling, possible endometrial polypectomy 77205, Intrauterine device placement 73067, LEEP (Loop electrosurgical excision procedure) 55265,R87.619,N92.1(Not Applicable) - Guillaume Cueto MD s possible endometrial polypectomy(Not Applicable) - Guillaume Cueto MD s Placement of Intrauterine Device(Not Applicable) - Guillaume Cueto MD s Loop Electrosurgical Excision Procedure 13498(Not Applicable) - Guillaume Cueto MD 23 y.o. A2 Bleeding 3 weeks per month for past 7 months Bleeding has been at times heavy + pelvic pain when bleeding, ?severe and intense? cramps Went to ER twice for severe ?lightening? pain / cramps Also has abnormal pap Now scheduled for hysteroscopy, endometrial sampling, possible endometrial polypectomy; LEEP cervical excision; and placement of mirena intrauterine device POBHx: x three PMHx: protein S deficiency PSHx: h/o LEEP, required several cauterizations following LEEP due to bleeding Meds: none SHx: + vaping Medications/Allergies* Allergies/Adverse Reactions Allergy/AdvReac Type Severity Reaction Status Date / Time amoxicillin Allergy ALGY-Hives Verified 08/11/23 15:29 ketorolac Allergy ADR-Nausea Verified 08/26/23 23:59 ondansetron Allergy ALGY-Hives Verified 08/26/23 23:59 Penicillins Allergy ALGY-Hives Verified 08/11/23 15:29 red dye Allergy ALGY-Anaphy Verified 08/11/23 15:29 laxis Pertinent History/Comorbid Conditions* Medical History (Updated 08/27/23 @ 03:33 by Jamie Jose DO) Psychiatric care Family History (Updated 08/05/23 @ 15:06 by Missy Hoyt CMA) Denies family history of Colon cancer Ovarian cancer Diabetes Heart disease Breast cancer Hypertension Uterine cancer Thyroid disease Stroke Pertinent Exam Findings alert, oriented x 3, clear to auscultation bilaterally and regular rate & rhythm Pertinent Data Pelvic sono 11-14-23 normal uterus, ovaries Right ovary with 6 cm anechoic cyst Pap 08-05-23 ASCUS, + HPV Recommendations Surgery/Procedure today Coding Level of Care Code Acute Code for Chg Fwd Time Spent (min) 20
[2023-08-28 10:17] LABS: OR HCG Qualitative Urine Negative (Negative)
[2023-08-28] MEDS: sodium chloride 0.9% 1,000 ML 30 ML IV (10:43)
--- NOTE | 2023-08-28 11:09 | W.PM.OPSUD ---
Surgery/Procedure H&P Update DATE OF PROCEDURE: August 28, 2023 DATE H&P PERFORMED: 08/11/23 H&P UPDATE INFORMATION: I have reviewed H&P completed within last 30 days, I have examined patient prior to procedure and No changes to prior documentation PREOP DIAGNOSIS: abnormal uterine bleeding; abnormal pap PLANNED PROCEDURE: Operation Date: 08/28/23 11:15 Proposed Procedures p Hysteroscopy, endometrial sampling, possible endometrial polypectomy 73483, Intrauterine device placement 33923, LEEP (Loop electrosurgical excision procedure) 85891,R87.619,N92.1(Not Applicable) - Guillaume Cueto MD s possible endometrial polypectomy(Not Applicable) - Guillaume Cueto MD s Placement of Intrauterine Device(Not Applicable) - Guillaume Cueto MD s Loop Electrosurgical Excision Procedure 89010(Not Applicable) - Guillaume Cueto MD
--- NOTE | 2023-08-28 11:40 | PM.OP ---
Operative Report Date of procedure: August 28, 2023 Pre-op diagnosis: abnormal uterine bleeding abnormal pap Post-op diagnosis: same Post-op findings: Normal-sized endometrial cavity + moderate endometrial tissue No polyps or fibroids Procedure done: hysteroscopy Curettage of uterus Electrosurgical loop excision of the cervix Implants: none Specimens removed/disposition: endometrial tissue cervical tissue Surgeon: Guillaume Cueto MD Estimated blood loss (mL): 5 Complications: Small 1 cm uterine fundal perforation Condition: stable Disposition: PACU Brief History: 23 y.o. with abnormal uterine bleeding and abnormal pap Procedure: Informed consent signed. Patient was taken to the operating room. Anesthesia was induced. Patient was placed in dorsolithotomy position, prepped and draped for hysteroscopy. A bivalve speculum was placed in the vagina. The anterior lip of the cervix was grasped with a sharp-toothed tenaculum. The cervix was serially dilated with Hegar dilators. . A hysteroscope was placed into the endometrial cavity. The endometrial cavity was seen to be normal-sized. There was moderate amount of endometrial tissue. There were no polyps or fibroids. At this time, the endometrial cavity was seen to be intact with no perforation. A Myosure device was inserted. It was activated for approximately two seconds to remove the endometrial tissue. At this time, a 1 cm uterine fundal perforation can be seen. The Myosure was immediately removed. In an attempt not to infuse more saline into the endometrial cavity, the hysteroscope was removed. In addition, I decided not to place the mirena intrauterine device. Endometrial curettage was done gently with a small curette and endometrial tissue was sent to pathology. Attention was then turned to the electrosurgical loop excision of the cervix. The cervix was infiltrated at the cervicovaginal junction with 20 U of vasopressin to decrease bleeding. Electrosurgical loop excision of the cervix was done to a depth of approximately 4 mm. Excellent hemostasis was noted. Monsel?s solution was applied. No bleeding was seen. All instruments were then removed. The patient was placed supine, awakened, and taken to the recovery room. Postop condition: stable EBL: 5 cc Sponge and instruments counts were normal x 2 Complications: 1 cm uterine fundal perforation
[2023-08-28] MEDS: vasopressin 20 unit/mL INJ 4 UNIT INJECTION (12:17)
[2023-08-28] MEDS: meperidine 50 mg/mL INJ IVP (12:52)
--- NOTE | 2023-08-28 13:27 | PC.NURSE ---
1325 - assessed pts aroldo pad and abd - noted pad to be c/d/i - abd noted to have increase in firmness since 1245 arrival in pacu - Dr Cueto notified per this nurse
[2023-08-28] MEDS: fentaNYL 50 mcg/mL INJ 2mL IVP (13:31)
--- NOTE | 2023-08-28 13:40 | PC.NURSE ---
4512 - Dr Cueto at pts side to assess
--- NOTE | 2023-08-28 13:41 | ANES.PREANE2 ---
Pre-Anesthetic Assessment Height/Weight: Height 1.68 m Weight 86 kg Temp Pulse Resp BP Pulse Ox O2 Del Method O2 Flow Rate 98.2 F 67 10 L 154/86 96 Room Air 6 08/28/23 13:25 08/28/23 13:35 08/28/23 13:35 08/28/23 13:35 08/28/23 13:35 08/28/23 13:35 08/28/23 12:55 Preop Diagnosis: abnormal uterine bleeding; abnormal pap Operation Date: 08/28/23 11:15 Proposed Procedures p Hysteroscopy, endometrial sampling, possible endometrial polypectomy 25255, Intrauterine device placement 86408, LEEP (Loop electrosurgical excision procedure) 24380,R87.619,N92.1(Not Applicable) - Guillaume Cueto MD s possible endometrial polypectomy(Not Applicable) - Guillaume Cueto MD s Placement of Intrauterine Device(Not Applicable) - Guillaume Cueto MD s Loop Electrosurgical Excision Procedure 46860(Not Applicable) - Guillaume Cueto MD Familial anesthetic complications: none Was Beta Gilberto taken within 24 hours: Yes Was Clonidine taken within 24 hours: N/A Last intake: Intake Last Liquid Date 08/27/23 Last Liquid Time 20:00 Last Solid Date 08/27/23 Last Solid Time 22:00 Social No alcohol and No tobacco Exam alert, oriented x 3, clear to auscultation bilaterally and regular rate & rhythm Airway Submandibular: within normal limits Cervical ROM: within normal limits Mallampati: Class II Dentition: full Metabolic Morbid Obesity Neuropsych Anxiety and Depression Anesthetic Plan ASA status: 2 Anesthesia: General Medications/Allergies Home Medications Medication Instructions Recorded Confirmed Last Taken Type hydrocodone 5 mg-acetaminophen 325 1 tab PO Q6H PRN pain #14 tabs 08/13/23 08/14/23 Unknown Rx mg tablet escitalopram oxalate 20 mg tablet 20 mg PO DAILY #30 tabs 08/14/23 08/27/23 08/27/23 Rx (Lexapro) propranolol 20 mg tablet 20 mg PO BID PRN anxiety #60 tabs 08/14/23 08/27/23 08/27/23 Rx trazodone 50 mg tablet 100 mg (2 x 50 mg) PO .HS PRN 08/14/23 08/27/23 08/27/23 20:00 Rx insomnia #60 tabs hydrocodone 5 mg-acetaminophen 325 1 tab PO Q8H PRN pain #10 tabs 08/27/23 08/28/23 08/27/23 20:00 Rx mg tablet hydrocodone 5 mg-acetaminophen 325 1 tab PO Q8H PRN pain 3 days #10 08/28/23 Unknown Rx mg tablet tabs Allergies Allergy/AdvReac Type Severity Reaction Status Date / Time amoxicillin Allergy ALGY-Hives Verified 08/11/23 15:29 ketorolac Allergy ADR-Nausea Verified 08/26/23 23:59 ondansetron Allergy ALGY-Hives Verified 08/26/23 23:59 Penicillins Allergy ALGY-Hives Verified 08/11/23 15:29 red dye Allergy ALGY-Anaphy Verified 08/11/23 15:29 laxis Current Medications Generic Name Dose Route Start Last Admin Trade Name Freq PRN Reason Stop Dose Admin Fentanyl 50 mcg 08/28/23 12:43 08/28/23 13:31 Fentanyl 50 Mcg/Ml Inj 2ml IVP 08/29/23 12:43 50 mcg Q5M PRN Administration Pain level 1-5 PACU Phase I Sodium Chloride 1,000 mls @ 30 mls/hr 08/28/23 10:00 08/28/23 10:43 Sodium Chloride 0.9% IV 08/29/23 09:59 30 mls/hr .Q24H EMY Administration Meperidine HCl 50 mg 08/28/23 13:04 08/28/23 12:52 Meperidine 50 Mg/Ml Inj IVP 50 mg ONCE PRN Administration SEVERE PAIN PFSH Anesthesia Medical History Psychiatric care Family History Denies family history of Colon cancer Ovarian cancer Diabetes Heart disease Breast cancer Hypertension Uterine cancer Thyroid disease Stroke Data Anesthesia Cardiac Studies: No Data to Display
--- NOTE | 2023-08-28 14:41 | ANE.PACU2 ---
Inpatient post-anesthesia follow up: Airway intact: Yes Vital signs: Temperature 98.2 F Pulse Rate 89 Respiratory Rate 16 Blood Pressure 164/100 Pulse Oximetry 96 Oxygen Delivery Me thod Room Air Oxygen Flow Rate 6 Fraction of Inspir ed Oxygen Hydration adequate: Yes Nausea and vomiting: No Pain level: 4 Mental status: Baseline
--- NOTE | 2023-08-28 14:45 | SUR.PHASEII ---
BLOOD PRESSURE TAKEN WITH PATIENT STANDING. TOLERATED WELL. DENIES DIZZINESS. NO FURTHER BLEEDING NOTED. MILD CRAMPING.
== END 2023-08-28 14:55 | disposition home or self-care (01) ==
PROVIDERS: Anesthesiology; PCP Family Medicine; Visit Provider Obstetrics & Gynecology
PROC: 0UJD8ZZ Inspection of Uterus and Cervix, Via Natural or Artificial Opening Endoscopic (ICD-10-PCS; CPT 58555; principal; 2023-08-28 11:15)
PROC: 0UBC7ZZ Excision of Cervix, Via Natural or Artificial Opening (ICD-10-PCS; CPT 57522; 2023-08-28 11:15)
DX: N93.9 Abnormal uterine and vaginal bleeding, unspecified (principal); E66.01 Morbid (severe) obesity due to excess calories; Z68.30 Body mass index [BMI] 30.0-30.9, adult; N87.0 Mild cervical dysplasia
CPT/HCPCS: 57460; 58558; 81025; 84703; 88305; 88307; J1100; J1200; J2175; J2704; J3010; J3490; J7030

== ENCOUNTER 2023-08-28 21:39 | Emergency (ER) | payer MEDICAID, SELFPAY ==
[2023-08-28 21:54] VITALS: BP 143/81; PULSE 90; RESP 18; TEMP 36.7; O2SAT 97
--- NOTE | 2023-08-28 22:28 | CTR_ITS ---
PROCEDURE INFORMATION: Exam: CT Abdomen And Pelvis With Contrast Exam date and time: 08/28/2023 10:42 PM Age: 23 years old Clinical indication: Abdominal pain; Localized; Lower; Prior surgery; Surgery date: Post-operative (0-2 days); Surgery type: Patient had a leep and says the surgeon said i think i perforated your uterus patient has been in pain since surgery; Additional info: Pelvic pain, possible uterine perf from proc today TECHNIQUE: Imaging protocol: Computed tomography of the abdomen and pelvis with contrast. Radiation optimization: All CT scans at this facility use at least one of these dose optimization techniques: automated exposure control; mA and/or kV adjustment per patient size (includes targeted exams where dose is matched to clinical indication); or iterative reconstruction. Contrast material: OMNI 350; Contrast volume: 100 ml; Contrast route: INTRAVENOUS (IV); REPORTING DATA: Count of CT and Cardiac NM exams in prior 12 months: This patient has received [address] and 0 known cardiac nuclear medicine studies in the 12 months prior to the current study. COMPARISON: CT abdomen pelvis w con* [id number] 08/13/2023 10:45 AM RADIATION DOSE METRICS: Total DLP (mGy-cm): 1006.34 FINDINGS: Lungs: Left lower lobe atelectasis. Liver: Normal. No mass. Gallbladder and bile ducts: Normal. No calcified stones. No ductal dilation. Pancreas: Normal. No ductal dilation. Spleen: Borderline splenomegaly. Adrenal glands: Normal. No mass. Kidneys and ureters: Normal. No hydronephrosis. Stomach and bowel: Unremarkable. No obstruction. No mucosal thickening. Appendix: The appendix is visualized and is normal. Intraperitoneal space: Mild ascites in the right upper quadrant, right lower quadrant, and trace amount in the pelvis. This fluid measures less than 20 Hounsfield units. No free peritoneal air. Vasculature: Unremarkable. No abdominal aortic aneurysm. Lymph nodes: Unremarkable. No enlarged lymph nodes. Urinary bladder: Unremarkable as visualized. Reproductive: Small gas bubbles in the endometrial cavity of the uterus and endocervical cavity. The uterus and ovaries otherwise are unremarkable. Bones/joints: Unremarkable. No acute fracture. Soft tissues: Small fat containing umbilical hernia. CT/CT abdomen pelvis w con* [id number] IMPRESSION: 1. Mild new ascites in the abdomen. This may relate to the recent procedure. The density of less than 20 Hounsfield units does not suggest acute peritoneal hemorrhage. 2. Small gas bubbles in the uterus and cervix most likely related to the recent procedure. No intraperitoneal free air.
[2023-08-28 22:31] LABS: Basophils % 0.3 %; Hematocrit 37.1 % (36-47); Lymphocytes # 0.8 10^3/uL (0.8-4.8); Lymphocytes % 11.2 %; Mean Corpuscular HGB Conc 31.8 g/dL (30-55); Mean Corpuscular Hemoglobin 25.6 pg (27-33); Mean Corpuscular Volume 80.5 fl (85-98); Monocytes # 0.2 10^3/uL (0.2-0.9); Monocytes % 2.4 %; Neutrophils % 85.7 %; Nucleated Red Blood Cells % 0 %; Platelet Count 280 10^3/cmm (157-399); Red Blood Count 4.61 10^6/uL (3.85-5.65); Red Cell Distribution Width 17.1 % (12.1-15.1); White Blood Count 7.12 10^3/uL (3.29-11.43)
[2023-08-28] MEDS: metoclopramide 5 mg/mL SDV 2 mL IVP (22:32)
[2023-08-28] MEDS: morphine 4 mg/mL SDV 1 mL IVP (22:33)
[2023-08-28 22:36] VITALS: BP 112/74; PULSE 81; RESP 16; O2SAT 98
--- NOTE | 2023-08-28 22:45 | W.ED.ABDPA2 ---
HPI - Abdominal Pain General: Chief Complaint: Abdominal Pain Stated Complaint: In Pain from [facility]\DR Cueto to Meet Her Time Seen by Provider: 08/28/23 21:43 History of Present Illness: Patient presents to the ER today for intense lower abdominal pelvic pain. Patient stated she had Dr. Cueto who done a LEEP procedure and hysteroscopy on her this morning and he may have perked her uterus. Patient stated she was not able to make it to the pharmacy in time to get her pain medicine but she found an old hydrocodone 5 mg tablet at home and took it at approximately 9 PM. Patient states pain is still a 10 out of 10 and she has called Dr. Cueto and he told her to come to the ER to be further evaluated he would see her here. Review of Systems General: Reports: 10 or more systems reviewed and unremarkable except in HPI and below PFSH ED PFSH: Medical History Psychiatric care Family History Denies family history of Colon cancer Ovarian cancer Diabetes Heart disease Breast cancer Hypertension Uterine cancer Thyroid disease Stroke Physical Exam Const: COMMON NORMALS: no acute distress, average body habitus, patient oriented x3, no limitations, healthy appearing, alert and well nourished Neck/C-Spine: COMMON NORMALS: no JVD Chest: COMMONS NORMALS: normal inspection of the chest and normal palpation of entire chest wall Resp: COMMON NORMALS: normal respiratory effort, No retractions, No use of accessory muscles and clear to auscultation bilaterally AUSCULTATION: clear to auscultation bilaterally Cardio: COMMON NORMALS: no JVD, regular rate, regular rhythm, S1 normal heart sound present, S2 normal heart sound present, No gallops present (Cardio), No clicks present (Cardio), No murmurs present (Cardio) and No rub (Cardio) RATE: regular rate RHYTHM: regular rhythm HEART SOUNDS: S1 normal heart sound present and S2 normal heart sound present GI: COMMON NORMALS: Normal to inspection, nondistended, normoactive bowel sounds present, Soft to palpation, No hepatosplenomegaly present, no masses and no bruits; negative for non-tender (Mildly diffusely tender) PALPATION: Yes Soft to palpation and Yes No hepatosplenomegaly present Neuro: COMMON NORMALS: patient oriented x3 SENSORIUM/ORIENTATION: Yes alert Course Vital Signs: Vital signs: Vital Signs Temperature 98.0 F 08/28/23 21:54 Pulse Rate 50 L 08/29/23 00:00 Respiratory Rate 16 08/29/23 00:00 Blood Pressure 124/81 08/29/23 00:00 Pulse Oximetry 97 08/29/23 00:00 Oxygen Delivery Me thod Room Air 08/28/23 21:54 MDM - Abdominal Pain Medical Decision Making Patient had procedure done today by Dr. Cueto. Dr. Cueto came to the ER and evaluated the patient. Lab work was benign. CT showed new ascites in the abdomen but unlikely to be acute peritoneal hemorrhage and also small gas bubbles in the uterus most likely secondary to the procedure. Patient was given 4 mg Zofran 4 mg Reglan and the pain subsided enough patient could take a nap always waiting on the results to come back. Patient will be given 1 dose of Percocet to go home with and a prescription to take on an as-needed basis. Patient should follow-up with Dr. Cueto as previously scheduled by him. Differential Diagnosis Likely abdominal pain; Unlikely acute appendicitis, calculus of kidney, constipation, diverticulitis, endometriosis, gastroenteritis, pancreatitis or small bowel obstruction Medical Records I reviewed the patient's medical records. Lab Data I reviewed the patient's lab results. 08/28/23 22:20 08/28/23 22:20 Labs/Radiology: Radiology Impressions Abdomen/Pelvis CT 08/28/23 22:28 IMPRESSION: 1. Mild new ascites in the abdomen. This may relate to the recent procedure. The density of less than 20 Hounsfield units does not suggest acute peritoneal hemorrhage. 2. Small gas bubbles in the uterus and cervix most likely related to the recent procedure. No intraperitoneal free air. Laboratory Results WBC 7.12 10^3/uL (3.29-11.43) 08/28/23 22:20 RBC 4.61 10^6/uL (3.85-5.65) 08/28/23 22:20 Hgb 11.80 g/dL (11.27-16.99) 08/28/23 22:20 Hct 37.1 % (36-47) 08/28/23 22:20 MCV 80.5 fl (85-98) L 08/28/23 22:20 MCH 25.6 pg (27-33) L 08/28/23 22:20 MCHC 31.8 g/dL (30-55) 08/28/23 22:20 RDW 17.1 % (12.1-15.1) H 08/28/23 22:20 Plt Count 280 10^3/cmm (157-399) 08/28/23 22:20 MPV 11.0 fL (7.4-10.4) H 08/28/23 22:20 Neut % (Auto) 85.7 % 08/28/23 22:20 Lymph % (Auto) 11.2 % 08/28/23 22:20 [place] % (Auto) 2.4 % 08/28/23 22:20 Eos % (Auto) 0.0 % 08/28/23 22:20 Baso % (Auto) 0.3 % 08/28/23 22:20 Neut # (Auto) 6.10 10^3/uL (1.8-7.7) 08/28/23 22:20 Lymph # (Auto) 0.8 10^3/uL (0.8-4.8) 08/28/23 22:20 [place] # (Auto) 0.2 10^3/uL (0.2-0.9) 08/28/23 22:20 Eos # (Auto) 0.0 10^3/uL (0.0-0.8) 08/28/23 22:20 Baso # (Auto) 0.0 10^3/uL (0.0-0.1) 08/28/23 22:20 Nucleated RBC % (auto) 0 % 08/28/23 22:20 Nucleated RBCs # 0.0 /100WBC 08/28/23 22:20 Sodium 140 mmol/L (136-145) 08/28/23 22:20 Potassium 4.1 mmol/L (3.5-5.1) 08/28/23 22:20 Chloride 108 mmol/L (98-107) H 08/28/23 22:20 Carbon Dioxide 22 mmol/L (22-29) 08/28/23 22:20 Anion Gap 14.1 (5-19) 08/28/23 22:20 BUN 9 mg/dL (6-20) 08/28/23 22:20 Creatinine 0.7 mg/dL (0.5-0.9) 08/28/23 22:20 GFR Calculation 102.0 mL/min (90-130) 08/28/23 22:20 Glucose 190 mg/dL (65-115) H 08/28/23 22:20 Calculated Osmolality 294 mOsm/kg (285-295) 08/28/23 22:20 Calcium 8.9 mg/dL (8.5-10.5) 08/28/23 22:20 Total Bilirubin 0.2 mg/dL (0.15-1.2) 08/28/23 22:20 AST 20 U/L (0-32) 08/28/23 22:20 ALT 13 U/L (0-33) 08/28/23 22:20 Alkaline Phosphatase 83 U/L (35-105) 08/28/23 22:20 Total Protein 7.0 g/dL (6.6-8.7) 08/28/23 22:20 Albumin 4.2 g/dL (3.5-5.2) 08/28/23 22:20 Globulin 2.8 g/dL (1.3-4.6) 08/28/23 22:20 All radiology interpretation(s) finalized by discharge Discharge Plan Discharge Patient Disposition: Home Clinical Impression: Abdominal pain Condition: Stable Prescriptions: No Action escitalopram oxalate [Lexapro] 20 mg tablet 20 mg PO DAILY Qty: 30 1RF trazodone 50 mg tablet 100 mg PO .HS PRN (Reason: insomnia) Qty: 60 1RF propranolol 20 mg tablet 20 mg PO BID PRN (Reason: anxiety) Qty: 60 1RF hydrocodone-acetaminophen 5-325 mg tablet 1 tab PO Q4H PRN (Reason: pain) 3 Days Qty: 20 0RF Discharge Orders: Discharge ED (Routine); Ordered 08/29/23 Ordered By: Jamie Jose Referrals: Hieu Garvin MD [Primary Care Provider] - 1 week Patient Instructions: Abdominal Pain (ED), Opioid Safety, Pain Management Activity Restrictions/Additional Instructions: Take all pain medicine as needed as directed. Please follow-up with Dr. Cueto and/or your PCP for further evaluation and treatment as needed. If you develop any worsening abdominal pain nausea vomiting fevers chills please return to the ER for further evaluation. Coding Level of Care Code ED [employer] for Inessa Munoz
[2023-08-28] MEDS: iohexol 350 mg/mL 500 mL Btl (per mL) IV (22:46)
[2023-08-28 22:48] LABS: Alanine Aminotransferase 13 U/L (0-33); Albumin Level 4.2 g/dL (3.5-5.2); Alkaline Phosphatase 83 U/L (35-105); Anion Gap 14.1 (5-19); Aspartate Amino Transferase 20 U/L (0-32); Blood Urea Nitrogen 9 mg/dL (6-20); Calcium 8.9 mg/dL (8.5-10.5); Carbon Dioxide 22 mmol/L (22-29); Chloride 108 mmol/L (98-107); Globulin 2.8 g/dL (1.3-4.6); Glucose 190 mg/dL (65-115); Osmolality Calculated 294 mOsm/kg (285-295); Potassium 4.1 mmol/L (3.5-5.1); Sodium 140 mmol/L (136-145); Total Bilirubin 0.2 mg/dL (0.15-1.2)
[2023-08-28 23:22] VITALS: BP 130/67; PULSE 58; RESP 16; O2SAT 97
[2023-08-29] VITALS: BP 124/81; PULSE 50; RESP 16; O2SAT 97
[2023-08-29 00:17] VITALS: RESP 16
[2023-08-29] MEDS: oxyCODONE-APAP 5-325 mg Tablet PO (00:17)
== END 2023-08-29 00:21 | disposition home or self-care (01) ==
PROVIDERS: Emergency Provider Emergency Medicine; PCP Family Medicine
DX: R10.2 Pelvic and perineal pain (principal)
CPT/HCPCS: 74177; 80053; 85025; 96374; 96375; 99285; J2270; J2765; Q9967

== ENCOUNTER 2023-08-31 15:22 | Emergency (ER) | payer MEDICAID, SELFPAY ==
[2023-08-31 15:27] VITALS: BP 176/81; PULSE 51; RESP 15; TEMP 36.8; O2SAT 98
[2023-08-31 16:17] LABS: Basophils # 0.1 10^3/uL (0.0-0.1); Basophils % 0.6 %; Eosinophils # 0.1 10^3/uL (0.0-0.8); Eosinophils % 1.3 %; Hematocrit 37.5 % (36-47); Lymphocytes # 2.7 10^3/uL (0.8-4.8); Lymphocytes % 25.8 %; Mean Corpuscular HGB Conc 31.5 g/dL (30-55); Mean Corpuscular Hemoglobin 25.5 pg (27-33); Mean Corpuscular Volume 81.2 fl (85-98); Mean Platelet Volume 11.1 fL (7.4-10.4); Monocytes # 0.6 10^3/uL (0.2-0.9); Monocytes % 5.4 %; Neutrophils # 6.92 10^3/uL (1.8-7.7); Neutrophils % 66.7 %; Nucleated Red Blood Cells % 0 %; Platelet Count 241 10^3/cmm (157-399); Red Blood Count 4.62 10^6/uL (3.85-5.65); Red Cell Distribution Width 17.2 % (12.1-15.1); White Blood Count 10.36 10^3/uL (3.29-11.43)
--- NOTE | 2023-08-31 16:23 | ED_ITS ---
HPI - Female Genitourinary 2 General: Chief complaint: Vaginal Bleeding Stated complaint: (surg 08/28) vag bleeding Time Seen by Provider: 08/31/23 16:18 Source: patient Mode of arrival: ambulatory Limitations: no limitations History of Present Illness: 23-year-old female states that she had a LEEP procedure on the she had some bleeding she is seen here at night had a CT scan was evaluated by her OB Dr. Cueto states that since then she still had some slight bleeding and some pelvic pain she has had some discharge denies any fevers denies any worsening improving factors. Associated symptoms: Reports abdominal pain and vaginal discharge; Deny headache(s) or nausea Review of Systems 2 Const: Denies: fever(s), chills, body aches or change in appetite ENMT: Denies: throat pain or dental pain Card: Denies: chest pain Resp: Denies: dyspnea GI: Reports: abdominal pain; Denies: nausea, vomiting or diarrhea : Reports: vaginal bleeding and vaginal discharge; Denies: dysuria Musc: Denies: neck pain or back pain Skin/Breast: Denies: rash Neuro: Denies: headache(s) PFSH ED 2 PFSH: Medical History Psychiatric care Family History Denies family history of Colon cancer Ovarian cancer Diabetes Heart disease Breast cancer Hypertension Uterine cancer Thyroid disease Stroke Physical Exam 2 Const: COMMON NORMALS: no acute distress, patient oriented x3 and healthy appearing HENMT: COMMON NORMALS: normocephalic and atraumatic HEAD & SCALP: n ormocephalic and atraumatic Neck/C-Spine: COMMON NORMALS: full ROM and supple Chest: COMMONS NORMALS: normal inspection of the chest Resp: COMMON NORMALS: normal respiratory effort Cardio: COMMON NORMALS: No murmurs present (Cardio) GI: COMMON NORMALS: Normal to inspection, nondistended, normoactive bowel sounds present, Soft to palpation, non-tender and no masses PALPATION: Yes Soft to palpation Extremity: COMMON NORMALS: normal to inspection and full ROM Neuro: COMMON NORMALS: patient oriented x3, moves all extremities and no focal motor deficits Psych: COMMON NORMALS: mental status grossly normal, Normal thought process present and cooperative THOUGHT PROCESS: Normal thought process present Skin: COMMON NORMALS: no rashes or lesions noted and no wounds GENERAL SKIN EXAM: no rashes or lesions noted Course 2 Vital Signs: Vital signs: Vital Signs Temperature 98.3 F 08/31/23 15:27 Pulse Rate 51 L 08/31/23 15:27 Respiratory Rate 15 08/31/23 15:27 Blood Pressure 176/81 08/31/23 15:27 Pulse Oximetry 98 08/31/23 15:27 Oxygen Delivery Me thod Room Air 08/31/23 15:27 MDM - Female Medical Decision Making Patient presents for vaginal bleeding along with vaginal discharge she is well- appearing here blood works normal patient was seen by Dr. Cueto her OB in the ER I did discuss with him she is stable for discharge she is to follow-up with him outpatient return if worsening she understands agrees to plan. Medical Records I reviewed the patient's medical records. Lab Data I reviewed the patient's lab results. 08/31/23 16:11 08/31/23 16:11 Laboratory Results WBC 10.36 10^3/uL (3.29-11.43) 08/31/23 16:11 RBC 4.62 10^6/uL (3.85-5.65) 08/31/23 16:11 Hgb 11.80 g/dL (11.27-16.99) 08/31/23 16:11 Hct 37.5 % (36-47) 08/31/23 16:11 MCV 81.2 fl (85-98) L 08/31/23 16:11 MCH 25.5 pg (27-33) L 08/31/23 16:11 MCHC 31.5 g/dL (30-55) 08/31/23 16:11 RDW 17.2 % (12.1-15.1) H 08/31/23 16:11 Plt Count 241 10^3/cmm (157-399) 08/31/23 16:11 MPV 11.1 fL (7.4-10.4) H 08/31/23 16:11 Neut % (Auto) 66.7 % 08/31/23 16:11 Lymph % (Auto) 25.8 % 08/31/23 16:11 [place] % (Auto) 5.4 % 08/31/23 16:11 Eos % (Auto) 1.3 % 08/31/23 16:11 Baso % (Auto) 0.6 % 08/31/23 16:11 Neut # (Auto) 6.92 10^3/uL (1.8-7.7) 08/31/23 16:11 Lymph # (Auto) 2.7 10^3/uL (0.8-4.8) 08/31/23 16:11 [place] # (Auto) 0.6 10^3/uL (0.2-0.9) 08/31/23 16:11 Eos # (Auto) 0.1 10^3/uL (0.0-0.8) 08/31/23 16:11 Baso # (Auto) 0.1 10^3/uL (0.0-0.1) 08/31/23 16:11 Nucleated RBC % (auto) 0 % 08/31/23 16:11 Nucleated RBCs # 0.0 /100WBC 08/31/23 16:11 Sodium 141 mmol/L (136-145) 08/31/23 16:11 Potassium 4.6 mmol/L (3.5-5.1) 08/31/23 16:11 Chloride 107 mmol/L (98-107) 08/31/23 16:11 Carbon Dioxide 27 mmol/L (22-29) 08/31/23 16:11 Anion Gap 11.6 (5-19) 08/31/23 16:11 BUN 10 mg/dL (6-20) 08/31/23 16:11 Creatinine 0.8 mg/dL (0.5-0.9) 08/31/23 16:11 GFR Calculation 87.4 mL/min (90-130) L 08/31/23 16:11 Glucose 107 mg/dL (65-115) 08/31/23 16:11 Calculated Osmolality 292 mOsm/kg (285-295) 08/31/23 16:11 Calcium 9.1 mg/dL (8.5-10.5) 08/31/23 16:11 Total Bilirubin 0.2 mg/dL (0.15-1.2) 08/31/23 16:11 AST 16 U/L (0-32) 08/31/23 16:11 ALT 17 U/L (0-33) 08/31/23 16:11 Alkaline Phosphatase 78 U/L (35-105) 08/31/23 16:11 Total Protein 7.0 g/dL (6.6-8.7) 08/31/23 16:11 Albumin 4.1 g/dL (3.5-5.2) 08/31/23 16:11 Globulin 2.9 g/dL (1.3-4.6) 08/31/23 16:11 No radiology studies performed this visit Discharge Plan Discharge Patient Disposition: Home Clinical Impression: Vaginal bleeding Condition: Stable Prescriptions: No Action escitalopram oxalate [Lexapro] 20 mg tablet 20 mg PO DAILY Qty: 30 1RF trazodone 50 mg tablet 100 mg PO .HS PRN (Reason: insomnia) Qty: 60 1RF propranolol 20 mg tablet 20 mg PO BID PRN (Reason: anxiety) Qty: 60 1RF hydrocodone-acetaminophen 5-325 mg tablet 1 tab PO Q4H PRN (Reason: pain) 3 Days Qty: 20 0RF Percocet 5-325 mg tablet 1 tab PO Q6H PRN (Reason: pain) Qty: 14 0RF Discharge Orders: Discharge ED (Routine); Ordered 08/31/23 Ordered By: Sherley Sapp Referrals: Hieu Garvin MD [Primary Care Provider] - Discharge Diet: Advance as tolerated Discharge Activity: Resume usual activity Patient Instructions: Abnormal (Dysfunctional) Uterine Bleeding (ED) Coding Level of Care Code ED Mechanical Repair Worker for Inessa Munoz
[2023-08-31 16:34] LABS: Alanine Aminotransferase 17 U/L (0-33); Albumin Level 4.1 g/dL (3.5-5.2); Alkaline Phosphatase 78 U/L (35-105); Anion Gap 11.6 (5-19); Aspartate Amino Transferase 16 U/L (0-32); Blood Urea Nitrogen 10 mg/dL (6-20); Calcium 9.1 mg/dL (8.5-10.5); Carbon Dioxide 27 mmol/L (22-29); Chloride 107 mmol/L (98-107); Globulin 2.9 g/dL (1.3-4.6); Glomerular Filtration Rate 87.4 mL/min (90-130); Glucose 107 mg/dL (65-115); Osmolality Calculated 292 mOsm/kg (285-295); Potassium 4.6 mmol/L (3.5-5.1); Sodium 141 mmol/L (136-145); Total Bilirubin 0.2 mg/dL (0.15-1.2)
== END 2023-08-31 17:25 | disposition home or self-care (01) ==
PROVIDERS: Emergency Provider Emergency Medicine; PCP Family Medicine
DX: N93.9 Abnormal uterine and vaginal bleeding, unspecified (principal)
CPT/HCPCS: 36415; 80053; 85025; 99283

== ENCOUNTER 2023-09-10 15:07 | Emergency (ER) | payer MEDICAID, SELFPAY ==
[2023-09-10 15:14] VITALS: BP 138/80; PULSE 100; RESP 18; TEMP 36.6; O2SAT 99; BMI 30.7
--- NOTE | 2023-09-10 16:44 | ED_ITS ---
HPI - Female Genitourinary 2 General: Chief complaint: Urogenital-Female Stated complaint: cramping,lower back pain,discolored vaginal dis Time Seen by Provider: 09/10/23 16:38 Source: patient Mode of arrival: ambulatory Limitations: no limitations and altered mental status History of Present Illness: 23-year-old female presents emergency ro om with complaint of green vaginal discharge. Couple weeks ago she had a LEEP procedure done she had difficulty since then few days ago she tried to be intimate with her boyfriend but was unable to because of discomfort she said today she has increasing green vaginal discharge she denies dysuria urgency or frequency no bloody discharge. Patient has pelvic cramping and discomfort as well no fever sweats or chills MD elicited complaint: vaginal discharge Pertinent past history: other (Recent LEEP procedure) Onset (ago): day(s) Severity: mild Quality of pain: cramping Vaginal discharge: purulent and vaginal odor Vaginal bleeding: none Exacerbating factors: none Relieving factors: none Associated symptoms: Deny abdominal pain, short of breath, fevers/chills, headache(s), nausea, rash, seizures, syncope, vaginal bleeding, vaginal discharge or weakness Sexual activity: Yes Review of Systems 2 Const: Denies: fever(s) or chills Card: Denies: chest pain or syncope Resp: Denies: dyspnea GI: Denies: abdominal pain or nausea : Denies: dysuria, urinary frequency, urinary urgency or vaginal discharge Musc: Denies: neck pain or back pain Skin/Breast: Denies: rash Neuro: Denies: headache(s) PFSH ED 2 PFSH: Medical History Psychiatric care Family History Denies family history of Colon cancer Ovarian cancer Diabetes Heart disease Breast cancer Hypertension Uterine cancer Thyroid disease Stroke Physical Exam 2 Const: COMMON NORMALS: no acute distress GENERAL APPEARANCE: cooperative and comfortable ORIENTATION/CONSCIOUSNESS: Yes awake, Yes oriented to person, Yes oriented to place and Yes oriented to time HENMT: COMMON NORMALS: normocephalic, atraumatic and hearing grossly normal bilaterally HEAD & SCALP: normocephalic and atraumatic Resp: COMMON NORMALS: normal respiratory effort, No retractions, No use of accessory muscles and clear to auscultation bilaterally AUSCULTATION: clear to auscultation bilaterally Cardio: COMMON NORMALS: regular rate, regular rhythm and No murmurs present (Cardio) RATE: regular rate RHYTHM: regular rhythm GI: COMMON NORMALS: Soft to palpation and No hepatosplenomegaly present A USCULTATION: Yes normoactive bowel sounds PALPATION: Yes Soft to palpation, No Tenderness to palpation present (GI), No Guarding due to palpation present (GI) and Yes No hepatosplenomegaly present : SPECULUM EXAM - VAGINA: No vaginal bleeding OB/EXTERNAL & SPECULUM: No vaginal bleeding Extremity: COMMON NORMALS: normal to inspection, capillary refill normal, no clubbing, cyanosis or edema, no calf tenderness and no pedal edema Neuro: SENSORIUM/ORIENTATION: Yes oriented to person, Yes oriented to place and Yes oriented to time Skin: COMMON NORMALS: no rashes or lesions noted GENERAL SKIN EXAM: no rashes or lesions noted Course 2 Vital Signs: Vital signs: Vital Signs Temperature 98 F 09/10/23 15:14 Pulse Rate 90 09/10/23 17:05 Respiratory Rate 18 09/10/23 17:05 Blood Pressure 129/82 09/10/23 17:05 Pulse Oximetry 98 09/10/23 17:05 Oxygen Delivery Me thod Room Air 09/10/23 17:05 MDM - Female Medical Decision Making Labs reviewed. Wet mount shows few white blood cells but otherwise is unremarkable no signs of yeast. Discussed with on-call gynecology. Patient states you are not able to get the metronidazole gel to on-call [facility] states we can use oral metronidazole as a substitute this is [id number] with Dr. Cueto. Medical Records I reviewed the patient's medical records. Lab Data I reviewed the patient's lab results. 09/10/23 16:59 09/10/23 16:59 Laboratory Results WBC 12.85 10^3/uL (3.29-11.43) H 09/10/23 16:59 RBC 4.96 10^6/uL (3.85-5.65) 09/10/23 16:59 Hgb 12.40 g/dL (11.27-16.99) 09/10/23 16:59 Hct 40.4 % (36-47) 09/10/23 16:59 MCV 81.5 fl (85-98) L 09/10/23 16:59 MCH 25.0 pg (27-33) L 09/10/23 16:59 MCHC 30.7 g/dL (30-55) 09/10/23 16:59 RDW 17.1 % (12.1-15.1) H 09/10/23 16:59 Plt Count 297 10^3/cmm (157-399) 09/10/23 16:59 MPV 10.5 fL (7.4-10.4) H 09/10/23 16:59 Neut % (Auto) 72.1 % 09/10/23 16:59 Lymph % (Auto) 20.8 % 09/10/23 16:59 [place] % (Auto) 5.2 % 09/10/23 16:59 Eos % (Auto) 0.9 % 09/10/23 16:59 Baso % (Auto) 0.6 % 09/10/23 16:59 Neut # (Auto) 9.27 10^3/uL (1.8-7.7) H 09/10/23 16:59 Lymph # (Auto) 2.7 10^3/uL (0.8-4.8) 09/10/23 16:59 [place] # (Auto) 0.7 10^3/uL (0.2-0.9) 09/10/23 16:59 Eos # (Auto) 0.1 10^3/uL (0.0-0.8) 09/10/23 16:59 Baso # (Auto) 0.1 10^3/uL (0.0-0.1) 09/10/23 16:59 Nucleated RBC % (auto) 0 % 09/10/23 16:59 Nucleated RBCs # 0.0 /100WBC 09/10/23 16:59 Sodium 142 mmol/L (136-145) 09/10/23 16:59 Potassium 4.2 mmol/L (3.5-5.1) 09/10/23 16:59 Chloride 108 mmol/L (98-107) H 09/10/23 16:59 Carbon Dioxide 26 mmol/L (22-29) 09/10/23 16:59 Anion Gap 12.2 (5-19) 09/10/23 16:59 BUN 7 mg/dL (6-20) 09/10/23 16:59 Creatinine 0.7 mg/dL (0.5-0.9) 09/10/23 16:59 GFR Calculation 102.0 mL/min (90-130) 09/10/23 16:59 Glucose 97 mg/dL (65-115) 09/10/23 16:59 Calculated Osmolality 292 mOsm/kg (285-295) 09/10/23 16:59 Calcium 9.2 mg/dL (8.5-10.5) 09/10/23 16:59 Total Bilirubin 0.2 mg/dL (0.15-1.2) 09/10/23 16:59 AST 16 U/L (0-32) 09/10/23 16:59 ALT 14 U/L (0-33) 09/10/23 16:59 Alkaline Phosphatase 86 U/L (35-105) 09/10/23 16:59 Total Protein 6.9 g/dL (6.6-8.7) 09/10/23 16:59 Albumin 3.9 g/dL (3.5-5.2) 09/10/23 16:59 Globulin 3.0 g/dL (1.3-4.6) 09/10/23 16:59 HCG, Qual Negative (Negative) 09/10/23 16:59 Urine Color Yellow (Yellow) 09/10/23 18:33 Urine Appearance Cloudy (CLEAR) A 09/10/23 18:33 Urine pH 7 (5-7) 09/10/23 18:33 Ur Specific [place] 1.015 (1.005-1.030) 09/10/23 18:33 Urine Protein Neg (Negative) 09/10/23 18:33 Urine Glucose (UA) Norm (Normal) 09/10/23 18:33 Urine Ketones Negative (Negative) 09/10/23 18:33 Urine Blood 2+ (Negative) H 09/10/23 18:33 Urine Nitrate Positive (Negative) H 09/10/23 18:33 Urine Bilirubin Neg (Negative) 09/10/23 18:33 Urine Urobilinogen Norm mg/dL (Negative) 09/10/23 18:33 Ur Leukocyte Esterase 2+ (Negative) H 09/10/23 18:33 Urine RBC 25-40 /hpf (0-2) H 09/10/23 18:33 Urine WBC 55-80 /hpf (0-5) H 09/10/23 18:33 Ur Squamous Epith Cells 5-10 /hpf (0-5) H 09/10/23 18:33 Ur Transition Epith Cell 0-4 /hpf 09/10/23 18:33 Amorphous Sediment Not Reportable 09/10/23 18:33 Urine Bacteria 3+ /hpf (NONE) H 09/10/23 18:33 Urine Mucus Trace /hpf 09/10/23 18:33 C.trachomatis RNA (TMA) Not detected (NOT DETECTED) 09/10/23 17:50 Chlamydia/GC Comment See note 09/10/23 17:50 N.gonorrhoeae RNA (TMA) Not detected (NOT DETECTED) 09/10/23 17:50 No radiology studies performed this visit Discharge Plan Discharge Patient Disposition: Home Clinical Impression: Pelvic cramping, S/P LEEP (status post loop electrosurgical excision procedure) Condition: Stable Prescriptions: New diclofenac sodium 75 mg tablet,delayed release (DR/EC) 75 mg PO Q12H PRN (Reason: pain) Qty: 20 0RF No Action escitalopram oxalate [Lexapro] 20 mg tablet 20 mg PO DAILY Qty: 30 1RF trazodone 50 mg tablet 100 mg PO .HS PRN (Reason: insomnia) Qty: 60 1RF propranolol 20 mg tablet 20 mg PO BID PRN (Reason: anxiety) Qty: 60 1RF hydrocodone-acetaminophen 5-325 mg tablet 1 tab PO Q4H PRN (Reason: pain) 3 Days Qty: 20 0RF metronidazole 1.3 % (65 mg/5 gram) gel 1 appful vaginal DAILY 5 Days Qty: 5 2RF Percocet 5-325 mg tablet 1 tab PO Q6H PRN (Reason: pain) Qty: 14 0RF Discharge Orders: Discharge ED (Routine); Ordered 09/10/23 Ordered By: Preet Woodard Referrals: Hieu Garvin MD [Primary Care Provider] - Discharge Diet: Usual diet Discharge Activity: Limit activity as instructed Patient Instructions: Opioid Safety, Pain Management Activity Restrictions/Additional Instructions: Thank you for choosing [facility] for your healthcare needs today. Please realize this is an emergency room and that we are providing you with a medical screening exam and this may not be complete and all inclusive of all the testing and or work up that you may need to determine your ailment or severity of your illness. It is very important that you follow up as instructed or that you return to the Emergency Department should you have concerns or if your condition changes or worsens in any way. We contacted the on-call lime mixer. Recommend that you start the oral metronidazole to help with the discharge. You can use diclofenac as needed for pelvic pain and cramping. Contact Dr. Cueto's office for further instructions. Coding Level of Care Code ED Sales Research Analyst for Inessa Munoz
[2023-09-10 17:05] VITALS: BP 129/82; PULSE 90; RESP 18; O2SAT 98
[2023-09-10 17:17] LABS: Basophils # 0.1 10^3/uL (0.0-0.1); Basophils % 0.6 %; Eosinophils # 0.1 10^3/uL (0.0-0.8); Eosinophils % 0.9 %; Hematocrit 40.4 % (36-47); Lymphocytes # 2.7 10^3/uL (0.8-4.8); Lymphocytes % 20.8 %; Mean Corpuscular HGB Conc 30.7 g/dL (30-55); Mean Corpuscular Volume 81.5 fl (85-98); Mean Platelet Volume 10.5 fL (7.4-10.4); Monocytes # 0.7 10^3/uL (0.2-0.9); Monocytes % 5.2 %; Neutrophils # 9.27 10^3/uL (1.8-7.7); Neutrophils % 72.1 %; Nucleated Red Blood Cells % 0 %; Platelet Count 297 10^3/cmm (157-399); Red Blood Count 4.96 10^6/uL (3.85-5.65); Red Cell Distribution Width 17.1 % (12.1-15.1); White Blood Count 12.85 10^3/uL (3.29-11.43)
[2023-09-10 17:29] LABS: HCG, Serum Qual Negative (Negative)
[2023-09-10 17:36] LABS: Alanine Aminotransferase 14 U/L (0-33); Albumin Level 3.9 g/dL (3.5-5.2); Alkaline Phosphatase 86 U/L (35-105); Anion Gap 12.2 (5-19); Aspartate Amino Transferase 16 U/L (0-32); Blood Urea Nitrogen 7 mg/dL (6-20); Calcium 9.2 mg/dL (8.5-10.5); Carbon Dioxide 26 mmol/L (22-29); Chloride 108 mmol/L (98-107); Glucose 97 mg/dL (65-115); Osmolality Calculated 292 mOsm/kg (285-295); Potassium 4.2 mmol/L (3.5-5.1); Sodium 142 mmol/L (136-145); Total Bilirubin 0.2 mg/dL (0.15-1.2); Total Protein 6.9 g/dL (6.6-8.7)
[2023-09-10] MEDS: TRAMadol 50 mg Tablet PO (18:40)
[2023-09-10 19:12] LABS: Add Urine Microscopic? YES; Bilirubin Urine Neg (Negative); Blood Urine 2+ (Negative); Glucose Urine UA Norm (Normal); Ketones Urine Negative (Negative); Leukocyte Esterase Urine 2+ (Negative); Nitrate Urine Positive (Negative); Protein Urine Neg (Negative); Specific Gravity, Urine 1.015 (1.005-1.030); Urine Appearance Cloudy (CLEAR); Urine Color Yellow (Yellow); Urobilinogen Urine Norm (Negative); pH Urine 7 (5-7)
[2023-09-10 19:23] LABS: Bacteria Urine 3+ /hpf; RBC Urine 25-40 /hpf (0-2); Transitional Epi Cells Urine 0-4 /hpf; WBC Urine 55-80 /hpf (0-5)
[2023-09-10 19:24] LABS: Add Urine Culture? Yes; Mucus Urine TRACE /hpf
[2023-09-12 18:35] LABS: Chlamydia Trachomatis RNA TMA NOT DETECTED (NOT DETECTED); Neisseria Gonorrhoeae RNA, TMA NOT DETECTED (NOT DETECTED)
== END 2023-09-10 18:53 | disposition home or self-care (01) ==
PROVIDERS: Nurse Practitioner Family; Emergency Provider Family Medicine; PCP Family Medicine
DX: R10.2 Pelvic and perineal pain (principal); Z98.890 Other specified postprocedural states
CPT/HCPCS: 36415; 80053; 81001; 84703; 85025; 87077; 87086; 87186; 87210; 87491; 87591; 99283

== ENCOUNTER 2023-10-22 08:50 | Emergency (ER) | payer MEDICAID, SELFPAY ==
[2023-10-22 09:02] VITALS: BP 140/55; PULSE 72; TEMP 36.9; O2SAT 97; BMI 33.9
[2023-10-22] MEDS: orphenadrine 30 mg/mL Inj 2 mL 60 MG IM (09:13)
[2023-10-22 09:15] VITALS: O2SAT 99
[2023-10-22] MEDS: morphine 4 mg/mL SDV 1 mL IVP (09:15)
[2023-10-22] MEDS: dexamethasone 10 mg/mL INJ IM (09:16)
--- NOTE | 2023-10-22 09:19 | W.ED.BACK ---
HPI - Back Pain/Injury General: Chief Complaint: Back Pain/Injury Stated Complaint: fall/low back pain Time Seen by Provider: 10/22/23 08:58 Source: patient Mode of arrival: ambulatory History of Present Illness: 23-year-old female presents to the emergency room complaining of mid back pain upper lumbar lower thoracic. She states she slipped and fell on her porch early hours this morning she denies any other injuries not strike her head there is no loss of consciousness. She is sitting crosslegged on the bed [place] complaining of back pain she did take naproxen and Flexeril at home prior to coming in. MD elicited complaint: back pain Onset (ago): hour(s) Timing: constant Quality: spasming Location: lumbar spine and thoracic spine Exacerbating factors: movement Associated symptoms: Deny abdominal pain, arthralgias, chills, change in bowel habits, difficulty walking, dysuria, fatigue, fecal incontinence, fever(s), hematuria, myalgias, nausea, numbness, syncope, tingling/numbness/burning, urinary frequency, urinary urgency, vomiting or weakness Review of Systems Const: Denies: fever(s), chills or fatigue Card: Denies: syncope Resp: Denies: dyspnea GI: Denies: abdominal pain, nausea, vomiting, fecal incontinence or change in bowel habits : Denies: dysuria, urinary urgency or hematuria Musc: Denies: neck pain or back pain Skin/Breast: Denies: rash Neuro: Denies: difficulty walking PFSH ED PFSH: Medical History Psychiatric care Family History Denies family history of Colon cancer Ovarian cancer Diabetes Heart disease Breast cancer Hypertension Uterine cancer Thyroid disease Stroke Physical Exam Const: COMMON NORMALS: no acute distress GENERAL APPEARANCE: cooperative and comfortable ORIENTATION/CONSCIOUSNESS: Yes awake, Yes oriented to person, Yes oriented to place and Yes oriented to time HENMT: COMMON NORMALS: normocephalic, atraumatic and hearing grossly normal bilaterally HEAD & SCALP: normocephalic and atraumatic Resp: COMMON NORMALS: normal respiratory effort, No retractions, No use of accessory muscles and clear to auscultation bilaterally AUSCULTATION: clear to auscultation bilaterally Cardio: COMMON NORMALS: regular rate, regular rhythm and No murmurs present (Cardio) RATE: regular rate RHYTHM: regular rhythm GI: COMMON NORMALS: Soft to palpation and No hepatosplenomegaly present AUSCULTATION: Yes normoactive bowel sounds PALPATION: Yes Soft to palpation, No Tenderness to palpation present (GI), No Guarding due to palpation present (GI) and Yes No hepatosplenomegaly present Extremity: COMMON NORMALS: normal to inspection, capillary refill normal, no clubbing, cyanosis or edema, no calf tenderness and no pedal edema Neuro: SENSORIUM/ORIENTATION: Yes oriented to person, Yes oriented to place and Yes oriented to time Skin: COMMON NORMALS: no rashes or lesions noted GENERAL SKIN EXAM: no rashes or lesions noted Course Vital Signs: Vital signs: Vital Signs Temperature 98.5 F 10/22/23 09:02 Pulse Rate 72 10/22/23 09:02 Blood Pressure 140/55 10/22/23 09:02 Pulse Oximetry 99 10/22/23 09:15 Oxygen Delivery Me thod Room Air 10/22/23 09:02 MDM - Back Pain/Injury Medical Decision Making Plain film does not show any acute fracture. Patient's pain is improved with medications given discharged home diclofenac tizanidine to follow-up as needed if not improving follow-up with primary care provider. Medical Records I reviewed the patient's medical records. Labs I reviewed the patient's lab results. Radiology Impressions Lumbar Spine X-Ray 10/22/23 09:21 IMPRESSION: No acute findings. Thoracic Spine X-Ray 10/22/23 09:21 IMPRESSION: No acute findings. All radiology interpretation(s) finalized by discharge Discharge Plan Discharge Patient Disposition: Home Clinical Impression: Thoracic back pain Condition: Stable Prescriptions: New tizanidine 4 mg tablet 4 mg PO Q6H PRN (Reason: muscle spasticity) Qty: 20 0RF Rx Instructions: do not exceed 3 doses per 24 hrs diclofenac sodium 75 mg tablet,delayed release (DR/EC) 75 mg PO Q12H PRN (Reason: pain) Qty: 20 0RF Discontinued naproxen 500 mg tablet 500 mg PO .ONE TIME DOSE No Action propranolol 20 mg tablet 20 mg PO BID PRN (Reason: anxiety) Qty: 60 1RF trazodone 50 mg tablet 100 mg PO BEDTIME PRN (Reason: insomnia) Lexapro 20 mg tablet 20 mg PO QAM Discharge Orders: Discharge ED (Routine); Ordered 10/22/23 Ordered By: Preet Woodard Referrals: Hieu Garvin MD [Primary Care Provider] - Discharge Diet: Usual diet Discharge Activity: Increase activity as tolerated Patient Instructions: Back Pain (ED), Opioid Safety, Pain Management Activity Restrictions/Additional Instructions: Thank you for choosing [facility] for your healthcare needs today. Please realize this is an emergency room and that we are providing you with a medical screening exam and this may not be complete and all inclusive of all the testing and or work up that you may need to determine your ailment or severity of your illness. It is very important that you follow up as instructed or that you return to the Emergency Department should you have concerns or if your condition changes or worsens in any way. 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
--- NOTE | 2023-10-22 09:21 | XRR_ITS ---
PROCEDURE INFORMATION: Exam: XR Lumbosacral Spine Exam date and time: 10/22/2023 9:40 AM Age: 23 years old Clinical indication: Injury or trauma; Fall; Blunt trauma (contusions or hematomas); Prior surgery; Surgery date: 6+ months; Surgery type: Leep TECHNIQUE: Imaging protocol: Radiologic exam of the lumbosacral spine. Views: 2 or 3 views. COMPARISON: CT abdomen pelvis w con* [id number] 08/28/2023 10:42 PM FINDINGS: Bones/joints: Normal. No acute fracture. Normal alignment. Soft tissues: Unremarkable. XR/XR lumbar spine 2-3V* [id number] IMPRESSION: No acute findings.
--- NOTE | 2023-10-22 09:21 | XRR_ITS ---
PROCEDURE INFORMATION: Exam: XR Thoracic Spine Exam date and time: 10/22/2023 9:31 AM Age: 23 years old Clinical indication: Injury or trauma; Fall; Blunt trauma (contusions or hematomas); Prior surgery; Surgery date: 6+ months; Surgery type: Leep TECHNIQUE: Imaging protocol: Radiologic exam of the thoracic spine. Views: 3 views. COMPARISON: CT abdomen pelvis w con* [id number] 08/28/2023 10:42 PM FINDINGS: Bones/joints: Normal. No acute fracture. Normal alignment. Soft tissues: Unremarkable. XR/XR thoracic spine 3V* [id number] IMPRESSION: No acute findings.
== END 2023-10-22 11:18 | disposition home or self-care (01) ==
PROVIDERS: Emergency Provider Family Medicine; PCP Family Medicine
DX: M54.6 Pain in thoracic spine (principal)
CPT/HCPCS: 72072; 72100; 96372; 96374; 99284; J1100; J2270; J2360

== ENCOUNTER 2023-11-09 06:23 | Emergency (ER) | payer MEDICAID, SELFPAY ==
[2023-11-09 06:34] VITALS: BP 168/92; PULSE 71; RESP 14; TEMP 36.4; O2SAT 99; BMI 33.9
--- NOTE | 2023-11-09 06:48 | W.ED.BACK ---
HPI - Back Pain/Injury General: Chief Complaint: Back Pain/Injury Stated Complaint: low back pain Time Seen by Provider: 11/09/23 06:28 History of Present Illness: Patient presents to the ER with complaints of upper mid back pain that radiates down her to her low back down through her legs. Patient said this been worsening for about the last week. Patient did states she fell about 2 weeks ago but does not think this is related to that fall. She had a period where she was pain-free in between. No signs of fall there is no known trauma. Review of Systems General: Reports: 10 or more systems reviewed and unremarkable except in HPI and below PFSH ED PFSH: Medical History Psychiatric care Family History Denies family history of Colon cancer Ovarian cancer Diabetes Heart disease Breast cancer Hypertension Uterine cancer Thyroid disease Stroke Physical Exam Const: COMMON NORMALS: no acute distress, average body habitus, patient oriented x3, no limitations, healthy appearing, alert and well nourished HENMT: COMMON NORMALS: normocephalic, atraumatic, hearing grossly normal bilaterally, external ears normal, Normal external nose present, moist oral mucous membranes and oropharynx normal HEAD & SCALP: normocephalic and atraumatic NOSE: Normal external nose present EXTERNAL EAR: Yes external ears normal Neck/C-Spine: COMMON NORMALS: full ROM, no lymphadenopathy, supple, no meningeal signs, no JVD and Thyroid normal THYROID: Thyroid normal Chest: COMMONS NORMALS: normal inspection of the chest and normal palpation of entire chest wall Resp: COMMON NORMALS: normal respiratory effort, No retractions, No use of accessory muscles and clear to auscultation bilaterally AUSCULTATION: clear to auscultation bilaterally Cardio: COMMON NORMALS: no JVD, regular rate, regular rhythm, S1 normal heart sound present, S2 normal heart sound present, No gallops present (Cardio), No clicks present (Cardio), No murmurs present (Cardio) and No rub (Cardio) RATE: regular rate RHYTHM: regular rhythm HEART SOUNDS: S1 normal heart sound present and S2 normal heart sound present GI: COMMON NORMALS: Normal to inspection, nondistended, normoactive bowel sounds present, Soft to palpation, non-tender, No hepatosplenomegaly present and no masses PALPATION: Yes Soft to palpation and Yes No hepatosplenomegaly present Back/Pelvis: OTHER: Tender thoracic and lumbar paraspinal musculature reproduces the pain. No tenderness over spinal processes. Neuro: COMMON NORMALS: patient oriented x3 SENSORIUM/ORIENTATION: Yes alert MENINGEAL SIGNS: Yes no meningeal signs Course Vital Signs: Vital signs: Vital Signs Temperature 97.6 F 11/09/23 06:34 Pulse Rate 71 11/09/23 06:34 Respiratory Rate 17 11/09/23 07:10 Blood Pressure 168/92 11/09/23 06:34 Pulse Oximetry 97 11/09/23 07:10 Oxygen Delivery Me thod Room Air 11/09/23 06:34 MDM - Back Pain/Injury Medical Decision Making Physical exam was performed, patient was given injections of Norflex 60 mg, dexamethasone 10 mg, morphine 4 mg, patient significantly improved. Patient be discharged home to follow-up with her PCP. Patient be given a small course of pain medicine and muscle relaxers. Differential Diagnosis Likely thoracic back pain Medical Records I reviewed the patient's medical records. Labs I reviewed the patient's lab results. No radiology studies performed this visit Discharge Plan Discharge Patient Disposition: Home Clinical Impression: Acute bilateral thoracic back pain Acute lumbar back pain Qualifiers: Back pain laterality: bilateral Sciatica presence: with sciatica Sciatica laterality: bilateral sciatica Qualified Code(s): M54.42 - Lumbago with sciatica, left side Condition: Stable Prescriptions: New tramadol 50 mg tablet 50 mg PO Q8H PRN (Reason: pain) Qty: 14 0RF cyclobenzaprine 5 mg tablet 5 mg PO TID PRN (Reason: muscle spasm) Qty: 14 0RF Discontinued tizanidine 4 mg tablet 4 mg PO Q6H PRN (Reason: muscle spasticity) Qty: 20 0RF Rx Instructions: do not exceed 3 doses per 24 hrs diclofenac sodium 75 mg tablet,delayed release (DR/EC) 75 mg PO Q12H PRN (Reason: pain) Qty: 20 0RF No Action propranolol 20 mg tablet 20 mg PO BID PRN (Reason: anxiety) Qty: 60 1RF trazodone 50 mg tablet 100 mg PO BEDTIME PRN (Reason: insomnia) Lexapro 20 mg tablet 20 mg PO QAM Discharge Orders: Discharge ED (Routine); Ordered 11/09/23 Ordered By: Jamie Jose Referrals: Hieu Garvin MD [Primary Care Provider] - 1 week Patient Instructions: Acute Low Back Pain (ED), Sciatica Activity Restrictions/Additional Instructions: Please take all medicine as prescribed. Please follow-up with your family practice physician within the next 7 days for further evaluation and treatment. If your pain becomes unbearable with medication please feel free to return to the ER. 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
[2023-11-09] MEDS: orphenadrine 30 mg/mL Inj 2 mL 60 MG IM (07:09)
[2023-11-09 07:10] VITALS: RESP 17; O2SAT 97
[2023-11-09] MEDS: morphine 4 mg/mL SDV 1 mL IM (07:10)
[2023-11-09] MEDS: dexamethasone 10 mg/mL INJ IM (07:10)
== END 2023-11-09 08:25 | disposition home or self-care (01) ==
PROVIDERS: Emergency Provider Emergency Medicine; PCP Family Medicine
DX: M54.42 Lumbago with sciatica, left side (principal); M54.6 Pain in thoracic spine
CPT/HCPCS: 96372; 99284; J1100; J2270; J2360

== ENCOUNTER 2024-03-16 14:54 | Emergency (ER) | payer MEDICAID, SELFPAY ==
[2024-03-16 15:05] VITALS: BP 143/74; PULSE 115; RESP 14; TEMP 37.6; O2SAT 98
[2024-03-16 15:10] LABS: Basophils % 0.2 %; Eosinophils % 0.1 %; Hematocrit 39.7 % (36-47); Lymphocytes # 0.6 10^3/uL (0.8-4.8); Lymphocytes % 4.2 %; Mean Corpuscular Hemoglobin 27.1 pg (27-33); Mean Corpuscular Volume 84.8 fl (85-98); Mean Platelet Volume 10.7 fL (7.4-10.4); Monocytes # 0.3 10^3/uL (0.2-0.9); Monocytes % 2.1 %; Neutrophils # 13.41 10^3/uL (1.8-7.7); Neutrophils % 93.1 %; Nucleated Red Blood Cells % 0 %; Platelet Count 215 10^3/cmm (157-399); Red Blood Count 4.68 10^6/uL (3.85-5.65); Red Cell Distribution Width 15.9 % (12.1-15.1); White Blood Count 14.41 10^3/uL (3.29-11.43)
[2024-03-16 15:23] LABS: HCG, Serum Qual Negative (Negative)
[2024-03-16 15:29] LABS: Alanine Aminotransferase 14 U/L (0-33); Albumin Level 4.2 g/dL (3.5-5.2); Alkaline Phosphatase 84 U/L (35-105); Anion Gap 13.8 (5-19); Aspartate Amino Transferase 15 U/L (0-32); Blood Urea Nitrogen 8 mg/dL (6-20); Carbon Dioxide 24 mmol/L (22-29); Chloride 104 mmol/L (98-107); Creatinine Clr Calc Pharmacy 134.6856; Globulin 3.3 g/dL (1.3-4.6); Glomerular Filtration Rate 101.1 mL/min (90-130); Glucose 127 mg/dL (65-115); Lipase 14 U/L (13-60); Osmolality Calculated 286 mOsm/kg (285-295); Potassium 3.8 mmol/L (3.5-5.1); Sodium 138 mmol/L (136-145); Total Bilirubin 0.4 mg/dL (0.15-1.2); Total Protein 7.5 g/dL (6.6-8.7)
--- NOTE | 2024-03-16 15:35 | W.ED.ABDPA2 ---
HPI - Abdominal Pain General: Chief Complaint: Abdominal Pain Stated Complaint: left side abd pain Time Seen by Provider: 03/16/24 15:28 Source: patient Mode of arrival: ambulatory Limitations: no limitations History of Present Illness: Patient is a 24-year-old female today with a complaint of left lower abdominal pain over the past 1.5 weeks. She initially noticed pain that she describes as cramping and intermittent. She initially thought it could be related to the start of her menstrual cycle. She states her menstrual cycles are normally irregular. She has not had any vaginal bleeding or vaginal discharge. No vaginal odor or new sexual partners or concerns for sexually transmitted infections. She has not noticed any dyspareunia. She does have a history of ovarian cysts but states this does not feel similar. She has not had any changes in her bowel movements. She is reporting subjective fevers and chills. Denies urinary symptoms or flank pain. MD elicited complaint: abdominal pain Pertinent past history: none Onset (ago): day(s) Pain Consistency: intermittent Location: LLQ Severity: severe Quality: cramping Radiation: none Migration to: no migration Exacerbating factors: nothing Relieving factors: nothing Associated Symptoms: Reports chills, GI cramping, fever(s) (subjective) and nausea; Denies change in bowel habits, diarrhea, dysuria, hematochezia, hematemesis, melena and vomiting Related Data: Patient : No Review of Systems Const: Reports: fever(s) (subjective) and chills; Denies: body aches, fatigue or malaise Card: Denies: chest pain Resp: Denies: dyspnea GI: Reports: abdominal pain, nausea and GI cramping; Denies: vomiting, hematemesis, diarrhea, change in bowel habits, hematochezia or melena : Reports: irregular period (chronic); Denies: flank pain, difficulty voiding, dysuria, urinary frequency, urinary urgency, urinary hesitancy, vaginal odor, vaginal bleeding or vaginal discharge Musc: Denies: neck pain, back pain, extremity pain or joint pain Skin/Breast: Denies: rash Neuro: Denies: headache(s), numbness in extremities, weakness in extremities, sensory changes or dizziness PFS ED PFSH: Medical History Psychiatric care Family History Denies family history of Colon cancer Ovarian cancer Diabetes Heart disease Breast cancer Hypertension Uterine cancer Thyroid disease Stroke Physical Exam Const: COMMON NORMALS: no acute distress, patient oriented x3, no limitations, alert and well nourished GENERAL APPEARANCE: cooperative Eye: COMMON NORMALS: no scleral icterus Resp: COMMON NORMALS: normal respiratory effort and clear to auscultation bilaterally AUSCULTATION: clear to auscultation bilaterally Cardio: COMMON NORMALS: regular rhythm RATE: tachycardic RHYTHM: regular rhythm GI: COMMON NORMALS: Normal to inspection, nondistended, normoactive bowel sounds present, Soft to palpation, No hepatosplenomegaly present and no masses INSPECTION: Yes normal to inspection AUSCULTATION: Yes normoactive bowel sounds PALPATION: Yes Soft to palpation, Yes Tenderness to palpation present (GI) (no pain into pelvis-tenderness seems to be above iliac) Details: LLQ, No Guarding due to palpation present (GI), No Rigid due to palpation and Yes No hepatosplenomegaly present : COMMON NORMALS: Yes no CVA tenderness BLADDER/KIDNEY EXAM: Yes no CVA tenderness Back/Pelvis: COMMON NORMALS: no CVA tenderness and thoracic and lumbar spine normal to inspection Extremity: GENERAL: Yes normal exam except as noted Neuro: COMMON NORMALS: patient oriented x3 and gait normal SENSORIUM/ORIENTATION: Yes alert Skin: COMMON NORMALS: no rashes or lesions noted GENERAL SKIN EXAM: no rashes or lesions noted Course Vital Signs: Vital signs: Vital Signs Temperature 99.7 F H 03/16/24 15:05 Pulse Rate 112 H 03/16/24 17:35 Respiratory Rate 18 03/16/24 17:35 Blood Pressure 144/81 03/16/24 17:35 Pulse Oximetry 99 03/16/24 17:35 Oxygen Delivery Me thod Room Air 03/16/24 15:46 MDM - Abdominal Pain Medical Decision Making Patient here with lower abdominal/pelvic pain. She is mildly tachycardic with a low-grade temp of 99.7. She has a minor white count. UA is significantly suspicious for infection. Will culture. Will go ahead and place on antibiotics to cover for ascending infection. Strict return to ED precautions given. Medical Records I reviewed the patient's medical records. Lab Data I reviewed the patient's lab results. 03/16/24 15:02 03/16/24 15:02 Labs/Radiology: Radiology Impressions Abdomen/Pelvis CT 03/16/24 15:44 IMPRESSION: 1. Left ovarian corpus luteum with trace free pelvic fluid that is likely physiologic. 2. Asymmetric right renal and ureteral findings suspicious for pyelonephritis. Laboratory Results WBC 14.41 10^3/uL (3.29-11.43) H 03/16/24 15:02 RBC 4.68 10^6/uL (3.85-5.65) 03/16/24 15:02 Hgb 12.70 g/dL (11.27-16.99) 03/16/24 15:02 Hct 39.7 % (36-47) 03/16/24 15:02 MCV 84.8 fl (85-98) L 03/16/24 15:02 MCH 27.1 pg (27-33) 03/16/24 15:02 MCHC 32.0 g/dL (30-55) 03/16/24 15:02 RDW 15.9 % (12.1-15.1) H 03/16/24 15:02 Plt Count 215 10^3/cmm (157-399) 03/16/24 15:02 MPV 10.7 fL (7.4-10.4) H 03/16/24 15:02 Neut % (Auto) 93.1 % 03/16/24 15:02 Lymph % (Auto) 4.2 % 03/16/24 15:02 [place] % (Auto) 2.1 % 03/16/24 15:02 Eos % (Auto) 0.1 % 03/16/24 15:02 Baso % (Auto) 0.2 % 03/16/24 15:02 Neut # (Auto) 13.41 10^3/uL (1.8-7.7) H 03/16/24 15:02 Lymph # (Auto) 0.6 10^3/uL (0.8-4.8) L 03/16/24 15:02 [place] # (Auto) 0.3 10^3/uL (0.2-0.9) 03/16/24 15:02 Eos # (Auto) 0.0 10^3/uL (0.0-0.8) 03/16/24 15:02 Baso # (Auto) 0.0 10^3/uL (0.0-0.1) 03/16/24 15:02 Nucleated RBC % (auto) 0 % 03/16/24 15:02 Nucleated RBCs # 0.0 /100WBC 03/16/24 15:02 Sodium 138 mmol/L (136-145) 03/16/24 15:02 Potassium 3.8 mmol/L (3.5-5.1) 03/16/24 15:02 Chloride 104 mmol/L (98-107) 03/16/24 15:02 Carbon Dioxide 24 mmol/L (22-29) 03/16/24 15:02 Anion Gap 13.8 (5-19) 03/16/24 15:02 BUN 8 mg/dL (6-20) 03/16/24 15:02 Creatinine 0.7 mg/dL (0.5-0.9) 03/16/24 15:02 GFR Calculation 101.1 mL/min (90-130) 03/16/24 15:02 Glucose 127 mg/dL (65-115) H 03/16/24 15:02 Calculated Osmolality 286 mOsm/kg (285-295) 03/16/24 15:02 Calcium 9.0 mg/dL (8.5-10.5) 03/16/24 15:02 Total Bilirubin 0.4 mg/dL (0.15-1.2) 03/16/24 15:02 AST 15 U/L (0-32) 03/16/24 15:02 ALT 14 U/L (0-33) 03/16/24 15:02 Alkaline Phosphatase 84 U/L (35-105) 03/16/24 15:02 Total Protein 7.5 g/dL (6.6-8.7) 03/16/24 15:02 Albumin 4.2 g/dL (3.5-5.2) 03/16/24 15:02 Globulin 3.3 g/dL (1.3-4.6) 03/16/24 15:02 Lipase 14 U/L (13-60) 03/16/24 15:02 HCG, Qual Negative (Negative) 03/16/24 15:02 Urine Color Yellow (Yellow) 03/16/24 15:37 Urine Appearance Slightly cloudy (CLEAR) 03/16/24 15:37 Urine pH 5 (5-7) 03/16/24 15:37 Ur Specific [place] 1.015 (1.005-1.030) 03/16/24 15:37 Urine Protein 1+ (Negative) H 03/16/24 15:37 Urine Glucose (UA) Norm (Normal) 03/16/24 15:37 Urine Ketones Negative (Negative) 03/16/24 15:37 Urine Blood 3+ (Negative) H 03/16/24 15:37 Urine Nitrate Positive (Negative) A 03/16/24 15:37 Urine Bilirubin Neg (Negative) 03/16/24 15:37 Urine Urobilinogen Norm mg/dL (Negative) 03/16/24 15:37 Ur Leukocyte Esterase Negative (Negative) 03/16/24 15:37 Urine RBC 15-25 /hpf (0-2) H 03/16/24 15:37 Urine WBC 80-100 /hpf (0-5) H 03/16/24 15:37 Ur Squamous Epith Cells 0-4 /hpf (0-5) H 03/16/24 15:37 Amorphous Sediment Not Reportable 03/16/24 15:37 Urine Bacteria 2+ /hpf (NONE) H 03/16/24 15:37 Urine Mucus None /hpf 03/16/24 15:37 All radiology interpretation(s) finalized by discharge Discharge Plan Discharge Patient Disposition: Home Clinical Impression: Pyelonephritis Condition: Stable Prescriptions: New Cipro 500 mg tablet 500 mg PO Q12H Qty: 14 0RF No Action propranolol 20 mg tablet 20 mg PO BID PRN (Reason: anxiety) Qty: 60 1RF tramadol 50 mg tablet 50 mg PO Q8H PRN (Reason: pain) Qty: 14 0RF cyclobenzaprine 5 mg tablet 5 mg PO TID PRN (Reason: muscle spasm) Qty: 14 0RF trazodone 50 mg tablet 100 mg PO BEDTIME PRN (Reason: insomnia) Lexapro 20 mg tablet 20 mg PO QAM metronidazole 500 mg tablet 500 mg PO BID 7 Days Qty: 14 0RF naproxen 500 mg tablet 500 mg PO BID PRN (Reason: pain) Qty: 20 0RF Discharge Orders: Discharge ED (Routine); Ordered 03/16/24 Ordered By: Joellen Milan Referrals: Hieu Garvin MD [Primary Care Provider] - Patient Instructions: Pyelonephritis Activity Restrictions/Additional Instructions: As we discussed monitor symptoms closely. Fill your antibiotics immediately. You need to return to the emergency department for worsening abdominal or flank pain, repetitive episodes of vomiting, inability to hold down your antibiotics, worsening fevers, generally feeling worse or unwell, or any other concerns you may have. I hope you begin to feel better soon. 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
--- NOTE | 2024-03-16 15:44 | CTR_ITS ---
PROCEDURE INFORMATION: Exam: CT Abdomen And Pelvis With Contrast Exam date and time: 03/16/2024 4:11 PM Age: 24 years old Clinical indication: Abdominal pain; Localized; Left lower quadrant (llq); Prior surgery; Surgery date: 6+ months; Surgery type: Leep procedure x2; Additional info: L lower abdominal pain TECHNIQUE: Imaging protocol: Computed tomography of the abdomen and pelvis with contrast. Radiation optimization: All CT scans at this facility use at least one of these dose optimization techniques: automated exposure control; mA and/or kV adjustment per patient size (includes targeted exams where dose is matched to clinical indication); or iterative reconstruction. Contrast material: OMNI 350; Contrast volume: 100 ml; Contrast route: INTRAVENOUS (IV); COMPARISON: CT abdomen pelvis w con* [id number] 08/28/2023 10:42 PM RADIATION DOSE METRICS: Total DLP (mGy-cm): 1142.65 FINDINGS: Liver: Normal. No mass. Gallbladder and biliary ducts: Normal. No calcified stones. No ductal dilation. Pancreas: Normal. No ductal dilation. Spleen: Normal. No splenomegaly. Adrenal glands: Normal. No mass. Kidneys and ureters: There is mild asymmetric striated right renal enhancement, urothelial thickening of the right renal collecting system and ureter as well as mild right periureteral fat stranding. Unremarkable left kidney and ureter. Stomach and bowel: Unremarkable. No obstruction. No mucosal thickening. Appendix: No evidence of appendicitis. Intraperitoneal space: Trace free pelvic fluid is likely physiologic. No free air or focal well organized fluid collection. Vasculature: Unremarkable. No abdominal aortic aneurysm. Lymph nodes: Unremarkable. No enlarged lymph nodes. Urinary bladder: Unremarkable as visualized. Reproductive: Left ovarian corpus luteum. Otherwise unremarkable as visualized. Bones/joints: Unremarkable. No acute fracture. Soft tissues: Small fat containing umbilical hernia. CT/CT abdomen pelvis w con* [id number] IMPRESSION: 1. Left ovarian corpus luteum with trace free pelvic fluid that is likely physiologic. 2. Asymmetric right renal and ureteral findings suspicious for pyelonephritis.
[2024-03-16 15:46] VITALS: BP 144/81; PULSE 112; RESP 18; O2SAT 99
[2024-03-16 16:00] LABS: Add Urine Microscopic? YES; Bilirubin Urine Neg (Negative); Blood Urine 3+ (Negative); Glucose Urine UA Norm (Normal); Ketones Urine Negative (Negative); Leukocyte Esterase Urine Negative (Negative); Nitrate Urine Positive (Negative); Protein Urine 1+ (Negative); Specific Gravity, Urine 1.015 (1.005-1.030); Urine Appearance Slightly Cloudy (CLEAR); Urine Color Yellow (Yellow); Urobilinogen Urine Norm (Negative); pH Urine 5 (5-7)
[2024-03-16 16:11] LABS: Add Urine Culture? Yes; Bacteria Urine 2+ /hpf; RBC Urine 15-25 /hpf (0-2); Squamous Epithelial Cell Urine 0-4 /hpf (0-5); WBC Urine 80-100 /hpf (0-5)
[2024-03-16] MEDS: iohexol 350 mg/mL 500 mL Btl (per mL) IV (16:15)
[2024-03-16] MEDS: sodium chloride 0.9% 1,000 ML 999 ML IV (16:19)
[2024-03-16] MEDS: metoclopramide 5 mg/mL SDV 2 mL 10 MG IVP (16:20)
[2024-03-16] MEDS: morphine 4 mg/mL SDV 1 mL IVP (16:20)
[2024-03-16] MEDS: cefTRIAXone 1,000 mg SDV 1000 MG IVP (17:22)
[2024-03-16 17:35] VITALS: BP 144/81; PULSE 112; RESP 18; O2SAT 99
== END 2024-03-16 17:35 | disposition home or self-care (01) ==
PROVIDERS: Emergency Provider Physician Assistant; PCP Family Medicine
DX: N12 Tubulo-interstitial nephritis, not specified as acute or chronic (principal)
CPT/HCPCS: 36415; 74177; 80053; 81001; 83690; 84703; 85025; 87077; 87086; 87186; 96374; 96375; 99285; J0696; J2270; J2765; J7030; Q9967

== ENCOUNTER 2024-03-18 13:56 | Emergency (ER) | payer SELFPAY ==
[2024-03-18 14:07] VITALS: BP 139/76; PULSE 95; RESP 16; TEMP 37; O2SAT 99
--- NOTE | 2024-03-18 15:37 | W.ED.ABDPA2 ---
HPI - Abdominal Pain General: Chief Complaint: Abdominal Pain Stated Complaint: diarrhea Time Seen by Provider: 03/18/24 15:32 History of Present Illness: 24-year-old female that was treated recently on 16 March for pyelonephritis. Patient comes in today due to diarrhea stools and left lower quadrant abdominal pain. Patient states that she had the pain when she was here on the but did not know if the pain was related to her pyelonephritis and was continued to be concerned. Today patient reports that she passed gas and had a diarrhea stool at the same time. Patient denies any blood in the stool or any high fevers. Patient appears nontoxic. Review of Systems General: Reports: 10 or more systems reviewed and unremarkable except in HPI and below PFSH ED PFSH: Medical History Psychiatric care Family History Denies family history of Colon cancer Ovarian cancer Diabetes Heart disease Breast cancer Hypertension Uterine cancer Thyroid disease Stroke Physical Exam Const: COMMON NORMALS: alert HENMT: COMMON NORMALS: normocephalic HEAD & SCALP: normocephalic Neck/C-Spine: COMMON NORMALS: full ROM Resp: COMMON NORMALS: normal respiratory effort Cardio: COMMON NORMALS: regular rate RATE: regular rate GI: COMMON NORMALS: Soft to palpation AUSCULTATION: Yes normoactive bowel sounds PALPATION: Yes Soft to palpation and Yes Tenderness to palpation present (GI) Details: LLQ Back/Pelvis: COMMON NORMALS: thoracic and lumbar spine normal to inspection Extremity: COMMON NORMALS: normal to inspection Neuro: SENSORIUM/ORIENTATION: Yes alert Skin: COMMON NORMALS: turgor normal GENERAL SKIN EXAM: turgor normal Course Vital Signs: Vital signs: Vital Signs Temperature 98.6 F 03/18/24 17:26 Pulse Rate 91 03/18/24 17:26 Respiratory Rate 16 03/18/24 17:26 Blood Pressure 131/78 03/18/24 17:26 Pulse Oximetry 100 03/18/24 17:26 Oxygen Delivery Me thod Room Air 03/18/24 14:07 MDM - Abdominal Pain Medical Decision Making 24-year-old female comes in today for complaints of left lower quadrant abdominal pain and diarrhea stool. Patient had recently been started on Cipro and was given Rocephin while in the emergency department 2 days ago. Patient states that she had 1 diarrhea stool today. Patient appears nontoxic. Abdomen soft with some left lower quadrant tenderness. I reviewed the medical record and noted that the CT scan done on the ninth did show a ovarian cyst in the left lower quadrant. Also seen was some stranding around the right kidney suggestive of some pyelonephritis. Laboratory values from that day were unremarkable. Patient was being treated for probable pyelonephritis. Differential diagnosis includes pyelonephritis, antibiotic associated diarrhea, C. difficile, ovarian cyst, colitis. Ultrasound was performed of the pelvis noted no ovarian torsion or other abnormalities. Patient has antibiotic associated diarrhea and an ovarian cyst. Recommended follow-up with primary care or [employer]. Encourage continuation of medication. Recommend return to the ER for worsening symptoms. Patient reported understanding. Lab Data Labs/Radiology: Radiology Impressions Pelvic/Transvag US 03/18/24 15:42 IMPRESSION: 1. No acute findings. 2. Small amount of pelvic free fluid is most likely physiologic. All radiology interpretation(s) finalized by discharge Discharge Plan Discharge Patient Disposition: Home Clinical Impression: Antibiotic-associated diarrhea Ovarian cyst Qualifiers: Laterality: left Qualified Code(s): N83.202 - Unspecified ovarian cyst, left side Condition: Stable Prescriptions: New metronidazole 500 mg tablet 500 mg PO BID 7 Days Qty: 14 0RF naproxen 500 mg tablet 500 mg PO BID PRN (Reason: pain) Qty: 20 0RF No Action propranolol 20 mg tablet 20 mg PO BID PRN (Reason: anxiety) Qty: 60 1RF tramadol 50 mg tablet 50 mg PO Q8H PRN (Reason: pain) Qty: 14 0RF cyclobenzaprine 5 mg tablet 5 mg PO TID PRN (Reason: muscle spasm) Qty: 14 0RF trazodone 50 mg tablet 100 mg PO BEDTIME PRN (Reason: insomnia) Lexapro 20 mg tablet 20 mg PO QAM Cipro 500 mg tablet 500 mg PO Q12H Qty: 14 0RF Discharge Orders: Discharge ED (Routine); Ordered 03/18/24 Ordered By: Ayush Bell Referrals: Hieu Garvin MD [Primary Care Provider] - Discharge Diet: Usual diet Discharge Activity: Increase activity as tolerated Patient Instructions: Ovarian Cyst (ED) Activity Restrictions/Additional Instructions: Take metronidazole 500 mg twice a day to help with the antibiotic associated diarrhea. You may take this with food in order to avoid nausea. Take naproxen 500 mg twice daily to help with ovarian cyst pain. Again this may be taken with food to help with nausea. Drink plenty of water with medications. Follow-up with primary care in 3 to 5 days for recheck. Return to ED for worsening symptoms such as high fever greater than 100.4, inability to hold fluids down, or blood in diarrhea stool. Coding Level of Care Code ED Health Psychologist for Inessa Munoz
--- NOTE | 2024-03-18 15:42 | USR_ITS ---
PROCEDURE INFORMATION: Exam: US Pelvis Transabdominal, Limited, and US Pelvis Transvaginal, Non-Obstetric Exam date and time: 03/18/2024 3:59 PM Age: 24 years old Clinical indication: Pelvic pain; Additional info: Left ovarian cyst, increased pain TECHNIQUE: Imaging protocol: Real-time transabdominal and transvaginal pelvic ultrasound (non-obstetric) with image documentation. Transabdominal imaging is limited. Transvaginal imaging was used for better evaluation of the endometrium, adnexa, and/or cervix. COMPARISON: 1. US pelvic complete* [id number] 07/22/2023 9:[address] abdomen pelvis w con* [id number] 03/16/2024 4:11 PM FINDINGS: Uterus: 5.7 x 3.4 x 4.2 cm. Endometrial thickness 4 mm. 4 mm nabothian cyst in the cervix. Right ovary/adnexa: 2.4 x 1.3 x 1.7 cm with small follicles and normal blood flow. Left ovary/adnexa: 3.0 x 2.2 x 1.8 cm with small follicles and normal blood flow. Urinary bladder: Urinary bladder is limited. Intraperitoneal space: Small amount of anechoic free fluid in the cul-de-sac. US/US pelvis lmt w transvag IMPRESSION: 1. No acute findings. 2. Small amount of pelvic free fluid is most likely physiologic.
[2024-03-18 17:26] VITALS: BP 131/78; PULSE 91; RESP 16; TEMP 37; O2SAT 100
== END 2024-03-18 17:27 | disposition home or self-care (01) ==
PROVIDERS: Emergency Provider Nurse Practitioner Family; PCP Family Medicine
DX: K52.1 Toxic gastroenteritis and colitis (principal); T36.95XA Adverse effect of unspecified systemic antibiotic, initial encounter; N83.202 Unspecified ovarian cyst, left side
CPT/HCPCS: 76830; 76857; 99284

== ENCOUNTER 2024-06-24 11:56 | Emergency (ER) | payer MEDICAID, SELFPAY ==
[2024-06-24 12:00] VITALS: BP 129/84; PULSE 101; RESP 18; TEMP 36.7; O2SAT 98; BMI 32.3
[2024-06-24 14:40] LABS: Basophils # 0.1 10^3/uL (0.0-0.1); Basophils % 0.6 %; Eosinophils # 0.1 10^3/uL (0.0-0.8); Hematocrit 44.1 % (36-47); Lymphocytes # 2.4 10^3/uL (0.8-4.8); Lymphocytes % 22.4 %; Mean Corpuscular HGB Conc 32.2 g/dL (30-55); Mean Corpuscular Hemoglobin 27.5 pg (27-33); Mean Corpuscular Volume 85.5 fl (85-98); Mean Platelet Volume 10.8 fL (7.4-10.4); Monocytes # 0.7 10^3/uL (0.2-0.9); Monocytes % 6.5 %; Neutrophils # 7.45 10^3/uL (1.8-7.7); Neutrophils % 69.1 %; Nucleated Red Blood Cells % 0 %; Platelet Count 311 10^3/cmm (157-399); Red Blood Count 5.16 10^6/uL (3.85-5.65); Red Cell Distribution Width 15.9 % (12.1-15.1); White Blood Count 10.77 10^3/uL (3.29-11.43)
[2024-06-24 14:54] LABS: HCG, Serum Qual Positive (Negative)
[2024-06-24 14:59] LABS: Alanine Aminotransferase 14 U/L (0-33); Albumin Level 4.3 g/dL (3.5-5.2); Alkaline Phosphatase 90 U/L (35-105); Aspartate Amino Transferase 19 U/L (0-32); Blood Urea Nitrogen 6 mg/dL (6-20); Calcium 8.8 mg/dL (8.5-10.5); Carbon Dioxide 22 mmol/L (22-29); Chloride 105 mmol/L (98-107); Creatinine Clr Calc Pharmacy 138.1732; Glomerular Filtration Rate 101.1 mL/min (90-130); Glucose 87 mg/dL (65-115); Lipase 17 U/L (13-60); Osmolality Calculated 279 mOsm/kg (285-295); Sodium 136 mmol/L (136-145); Total Bilirubin 0.3 mg/dL (0.15-1.2); Total Protein 7.3 g/dL (6.6-8.7)
--- NOTE | 2024-06-24 15:45 | USR_ITS ---
PROCEDURE INFORMATION: Exam: US After First Trimester, Transabdominal Exam date and time: 06/24/2024 4:11 PM Age: 24 years old Clinical indication: Lmp or gestational age (in weeks): No sac or pole; Antepartum complications; Bleeding; ; Additional info: Pelvic pain, hcg pos LABS AND CLINICAL REPORTS: Last menstrual period start date: Unknown TECHNIQUE: Imaging protocol: Real-time transabdominal obstetrical ultrasound of the maternal pelvis and a second or third trimester with image documentation. COMPARISON: US pelvis lmt w transvag 03/18/2024 3:59 PM FINDINGS: Gestation: An intrauterine gestational sac is not visualized. MATERNAL: Uterus: Uterus measures 6.2 x 4.2 x 4.3 cm. Endometrium measures 1.4 cm. Cervix: Unremarkable. Cervix is closed. Right ovary/adnexa: Right ovary measures 2.3 x 1.2 x 1.6 cm with a volume of 2.3 cc. Left ovary/adnexa: Left ovary measures 3.5 x 2.7 x 2.7 cm with a volume of 13.2 cc. There is increased vascularity in the left ovary. A complex cystic structure is present in the left ovary measuring 1.3 x 1.5 x 1.5 cm. Intraperitoneal space: There is a small amount of free fluid in the cul-de-sac. US/US OB >= 14 weeks fetus [id number] IMPRESSION: Intrauterine gestational sac not visualized. Complex cystic structure in the left ovary may represent a corpus luteum cyst however ectopic cannot be excluded.
--- NOTE | 2024-06-24 15:47 | ED_ITS ---
HPI - Abdominal Pain 2 General: Chief Complaint: Abdominal Pain Stated Complaint: abd pain Time Seen by Provider: 06/24/24 15:44 History of Present Illness: 24-year-old female comes in today with p elvic discomfort for the last 2 days. Patient first believe that she might have been having the start of her period. Patient's last menstrual cycle was on 02 June. Patient has been awaiting a surgery for hysterectomy due to abnormal uterine bleeding secondary to PCOS and multiple LEEP procedures. Patient is 5 para 3. Patient has pain with intercourse and a protein S deficiency. Patient's DRIVER/REFUSE COLLECTOR is Dr. Matos and Dr. Cueto. Patient appears nontoxic. Patient appears in mild pain at rest. Related Data Home Medications Medication Instructions Recorded Confirmed escitalopram oxalate 20 mg tablet 20 mg PO QAM 10/22/23 04/16/24 (Lexapro) trazodone 50 mg tablet 100 mg PO BEDTIME PRN insomnia 10/22/23 04/16/24 Previous Rx's Medication Instructions Recorded propranolol 20 mg tablet 20 mg PO BID PRN anxiety #60 tabs 08/14/23 cyclobenzaprine 5 mg tablet 5 mg PO TID PRN muscle spasm #14 11/09/23 tabs tramadol 50 mg tablet 50 mg PO Q8H PRN pain #14 tabs 11/09/23 ciprofloxacin HCl 500 mg tablet 500 mg PO Q12H #14 tabs 03/16/24 (Cipro) naproxen 500 mg tablet 500 mg PO BID PRN pain #20 tabs 03/18/24 Allergies Allergy/AdvReac Type Severity Reaction Status Date / Time amoxicillin Allergy ALGY-Hives Verified 04/16/24 14:55 doxycycline Allergy ALGY-Hives Verified 04/16/24 14:55 ketorolac Allergy ADR-Nausea Verified 04/16/24 14:55 ondansetron Allergy ALGY-Hives Verified 04/16/24 14:55 Penicillins Allergy ALGY-Hives Verified 04/16/24 14:55 red dye Allergy ALGY-Anaphy Verified 04/16/24 14:55 laxis Review of Systems 2 General: Reports: 10 or more systems reviewed and unremarkable except in HPI and below : Reports: pelvic pain and dyspareunia PFS ED 2 PFSH: Medical History Psychiatric care Family History Denies family history of Colon cancer Ovarian cancer Diabetes Heart disease Breast cancer Hypertension Uterine cancer Thyroid disease Stroke Social History Smoking and tobacco/nicotine status: unknown if used tobacco/nicotine Physical Exam 2 Const: COMMON NORMALS: alert HENMT: COMMON NORMALS: normocephalic HEAD & SCALP: normocephalic Neck/C-Spine: COMMON NORMALS: full ROM Resp: COMMON NORMALS: normal respiratory effort and clear to auscultation bilaterally AUSCULTATION: clear to auscultation bilaterally Cardio: COMMON NORMALS: regular rate RATE: regular rate GI: COMMON NORMALS: Soft to palpation PALPATION: Yes Soft to palpation Back/Pelvis: COMMON NORMALS: thoracic and lumbar spine normal to inspection Extremity: COMMON NORMALS: full ROM Neuro: SENSORIUM/ORIENTATION: Yes alert Skin: COMMON NORMALS: turgor normal GENERAL SKIN EXAM: turgor normal Course 2 Vital Signs: Vital signs: Vital Signs Temperature 98.1 F 06/24/24 12:00 Pulse Rate 95 06/24/24 16:44 Respiratory Rate 18 06/24/24 12:00 Blood Pressure 139/92 06/24/24 16:44 Pulse Oximetry 100 06/24/24 16:44 Oxygen Delivery Me thod Room Air 06/24/24 16:44 MDM - Abdominal Pain Medical Decision Making 24-year-old female comes in today for complaints of pelvic pain. Patient reports symptoms for the last 2 days. Patient has a history of ovarian cyst and is concerned she may be having. On exam patient appears nontoxic. Patient is resting well. Differential diagnosis includes but not limited to ovarian cyst, urinary tract infection, ectopic , premenstrual syndrome. CBC and CMP were unremarkable. Patient was positive for hCG on serum. hCG was 580. Ultrasound noted no obvious ectopic or ovarian torsion or intrauterine . Patient may have a viable but is still little early for us to identify. Patient's last menstrual cycle bleeding 925. I reviewed this with patient with recommendation for treatment and follow-up. Patient reported understanding and agreed to plan. Lab Data 06/24/24 14:05 06/24/24 14:05 Labs/Radiology: Radiology Impressions Ultrasound 06/24/24 15:45 IMPRESSION: Intrauterine gestational sac not visualized. Complex cystic structure in the left ovary may represent a corpus luteum cyst however ectopic cannot be excluded. Laboratory Results WBC 10.77 10^3/uL (3.29-11.43) 06/24/24 14:05 RBC 5.16 10^6/uL (3.85-5.65) 06/24/24 14:05 Hgb 14.20 g/dL (11.27-16.99) 06/24/24 14:05 Hct 44.1 % (36-47) 06/24/24 14:05 MCV 85.5 fl (85-98) 06/24/24 14:05 MCH 27.5 pg (27-33) 06/24/24 14:05 MCHC 32.2 g/dL (30-55) 06/24/24 14:05 RDW 15.9 % (12.1-15.1) H 06/24/24 14:05 Plt Count 311 10^3/cmm (157-399) 06/24/24 14:05 MPV 10.8 fL (7.4-10.4) H 06/24/24 14:05 Neut % (Auto) 69.1 % 06/24/24 14:05 Lymph % (Auto) 22.4 % 06/24/24 14:05 [place] % (Auto) 6.5 % 06/24/24 14:05 Eos % (Auto) 1.0 % 06/24/24 14:05 Baso % (Auto) 0.6 % 06/24/24 14:05 Neut # (Auto) 7.45 10^3/uL (1.8-7.7) 06/24/24 14:05 Lymph # (Auto) 2.4 10^3/uL (0.8-4.8) 06/24/24 14:05 [place] # (Auto) 0.7 10^3/uL (0.2-0.9) 06/24/24 14:05 Eos # (Auto) 0.1 10^3/uL (0.0-0.8) 06/24/24 14:05 Baso # (Auto) 0.1 10^3/uL (0.0-0.1) 06/24/24 14:05 Nucleated RBC % (auto) 0 % 06/24/24 14:05 Nucleated RBCs # 0.0 /100WBC 06/24/24 14:05 Sodium 136 mmol/L (136-145) 06/24/24 14:05 Potassium 4.0 mmol/L (3.5-5.1) 06/24/24 14:05 Chloride 105 mmol/L (98-107) 06/24/24 14:05 Carbon Dioxide 22 mmol/L (22-29) 06/24/24 14:05 Anion Gap 13.0 (5-19) 06/24/24 14:05 BUN 6 mg/dL (6-20) 06/24/24 14:05 Creatinine 0.7 mg/dL (0.5-0.9) 06/24/24 14:05 GFR Calculation 101.1 mL/min (90-130) 06/24/24 14:05 Glucose 87 mg/dL (65-115) 06/24/24 14:05 Calculated Osmolality 279 mOsm/kg (285-295) L 06/24/24 14:05 Calcium 8.8 mg/dL (8.5-10.5) 06/24/24 14:05 Total Bilirubin 0.3 mg/dL (0.15-1.2) 06/24/24 14:05 AST 19 U/L (0-32) 06/24/24 14:05 ALT 14 U/L (0-33) 06/24/24 14:05 Alkaline Phosphatase 90 U/L (35-105) 06/24/24 14:05 Total Protein 7.3 g/dL (6.6-8.7) 06/24/24 14:05 Albumin 4.3 g/dL (3.5-5.2) 06/24/24 14:05 Globulin 3.0 g/dL (1.3-4.6) 06/24/24 14:05 Lipase 17 U/L (13-60) 06/24/24 14:05 HCG, Qual Positive (Negative) H 06/24/24 14:05 Ser , Semi-Qnt 580.80 mIU/mL 06/24/24 14:05 Urine Color Dark yellow (Yellow) A 06/24/24 16:35 Urine Appearance Clear (CLEAR) 06/24/24 16:35 Urine pH 6.0 (5-7) 06/24/24 16:35 Ur Specific Veteran 1.031 (1.005-1.030) H 06/24/24 16:35 Urine Protein 2+ (Negative) A 06/24/24 16:35 Urine Glucose (UA) Negative (Normal) 06/24/24 16:35 Urine Ketones 1+ (Negative) H 06/24/24 16:35 Urine Blood Negative (Negative) 06/24/24 16:35 Urine Nitrate Negative (Negative) 06/24/24 16:35 Urine Bilirubin Negative (Negative) 06/24/24 16:35 Urine Urobilinogen 1.0 mg/dL (Negative) 06/24/24 16:35 Ur Leukocyte Esterase Negative (Negative) 06/24/24 16:35 Urine RBC 0-2 /hpf (0-2) 06/24/24 16:35 Urine WBC 0-5 /hpf (0-5) 06/24/24 16:35 Ur Squamous Epith Cells 6-10 /hpf (0-5) 06/24/24 16:35 Amorphous Sediment Not Reportable 06/24/24 16:35 Urine Bacteria None seen /hpf (NONE) 06/24/24 16:35 Hyaline Casts 2.87 /lpf 06/24/24 16:35 All radiology interpretation(s) finalized by discharge Discharge Plan Discharge Patient Disposition: Home Clinical Impression: Abdominal pain Qualifiers: Abdominal location: lower abdomen, unspecified Qualified Code(s): R10.30 - Lower abdominal pain, unspecified Qualifiers: Weeks of gestation: less than 8 weeks Qualified Code(s): Z3A.01 - Less than 8 weeks gestation of Condition: Stable Prescriptions: No Action propranolol 20 mg tablet 20 mg PO BID PRN (Reason: anxiety) Qty: 60 1RF tramadol 50 mg tablet 50 mg PO Q8H PRN (Reason: pain) Qty: 14 0RF cyclobenzaprine 5 mg tablet 5 mg PO TID PRN (Reason: muscle spasm) Qty: 14 0RF trazodone 50 mg tablet 100 mg PO BEDTIME PRN (Reason: insomnia) Lexapro 20 mg tablet 20 mg PO QAM Cipro 500 mg tablet 500 mg PO Q12H Qty: 14 0RF naproxen 500 mg tablet 500 mg PO BID PRN (Reason: pain) Qty: 20 0RF Discharge Orders: Discharge ED (Routine); Ordered 06/24/24 Ordered By: Ayush Bell Referrals: Hieu Garvin MD [Primary Care Provider] - Discharge Diet: Usual diet Discharge Activity: Increase activity as tolerated Patient Instructions: Abdominal Pain (ED) Activity Restrictions/Additional Instructions: Repeat hCG level in 3 days. Follow-up with DRIVER/REFUSE COLLECTOR or return to ER. At this time we cannot identify an ectopic or a viable . You are really early in the cycle of . The recommendation at this time is to monitor the with repeated hCG levels and repeat the ultrasound as needed. If you begin to run a high fever, have bleeding through more than 1 pad an hour is strongly recommended to return to the ER. Coding Level of Care Code ED Electronic Induction Hardener for Inessa Munoz
[2024-06-24 16:44] VITALS: BP 139/92; PULSE 95; O2SAT 100
[2024-06-24 16:52] LABS: Bilirubin Urine Negative (Negative); Blood Urine Negative (Negative); Glucose Urine UA Negative (Normal); Ketones Urine 1+ (Negative); Leukocyte Esterase Urine Negative (Negative); Nitrate Urine Negative (Negative); Protein Urine 2+ (Negative); Urine Appearance Clear (CLEAR); Urine Color Dark Yellow (Yellow)
[2024-06-24 16:55] LABS: Add Urine Microscopic? YES; Bacteria Urine None Seen /hpf; Hyaline Casts Urine 2.87 /lpf; RBC Urine 0-2 /hpf (0-2); WBC Urine 0-5 /hpf (0-5)
[2024-06-24 17:00] LABS: Add Urine Culture? No; Specific Gravity, Urine 1.031 (1.005-1.030)
[2024-06-24 18:27] VITALS: BP 120/79; PULSE 82; RESP 18; O2SAT 99
== END 2024-06-24 18:28 | disposition home or self-care (01) ==
PROVIDERS: Emergency Medicine; Emergency Provider Nurse Practitioner Family; PCP Family Medicine
DX: O26.891 Other specified pregnancy related conditions, first trimester (principal); R10.2 Pelvic and perineal pain; Z3A.01 Less than 8 weeks gestation of pregnancy
CPT/HCPCS: 36415; 76805; 80053; 81001; 83690; 84702; 84703; 85025; 99284

== ENCOUNTER 2024-06-26 21:30 | Emergency (ER) | payer MEDICAID, SELFPAY ==
[2024-06-26 21:37] VITALS: BP 129/75; PULSE 86; RESP 16; TEMP 36.9; O2SAT 97; BMI 32.3
[2024-06-26 22:16] VITALS: BP 129/92; PULSE 99; RESP 16; O2SAT 97
[2024-06-26 23:04] LABS: Bilirubin Urine Negative (Negative); Blood Urine Negative (Negative); Glucose Urine UA Negative (Normal); Ketones Urine 3+ (Negative); Leukocyte Esterase Urine Trace (Negative); Nitrate Urine Negative (Negative); Protein Urine 1+ (Negative); Urine Appearance Clear (CLEAR); Urine Color Dark Yellow (Yellow)
[2024-06-26 23:06] LABS: Add Urine Microscopic? YES; Bacteria Urine Trace /hpf; Hyaline Casts Urine 1.65 /lpf; RBC Urine 0-2 /hpf (0-2); WBC Urine 0-5 /hpf (0-5)
[2024-06-26 23:16] LABS: Basophils % 0.4 %; Eosinophils # 0.1 10^3/uL (0.0-0.8); Eosinophils % 0.8 %; Hematocrit 40.1 % (36-47); Lymphocytes # 1.7 10^3/uL (0.8-4.8); Lymphocytes % 22.4 %; Mean Corpuscular HGB Conc 31.9 g/dL (30-55); Mean Corpuscular Volume 84.6 fl (85-98); Mean Platelet Volume 10.5 fL (7.4-10.4); Monocytes # 0.5 10^3/uL (0.2-0.9); Monocytes % 6.8 %; Neutrophils # 5.37 10^3/uL (1.8-7.7); Neutrophils % 69.2 %; Nucleated Red Blood Cells % 0 %; Platelet Count 253 10^3/cmm (157-399); Red Blood Count 4.74 10^6/uL (3.85-5.65); Red Cell Distribution Width 15.6 % (12.1-15.1); White Blood Count 7.76 10^3/uL (3.29-11.43)
[2024-06-26 23:16] LABS: Specific Gravity, Urine 1.035 (1.005-1.030)
[2024-06-26 23:45] LABS: Alanine Aminotransferase 16 U/L (0-33); Albumin Level 4.1 g/dL (3.5-5.2); Alkaline Phosphatase 74 U/L (35-105); Anion Gap 13.7 (5-19); Aspartate Amino Transferase 23 U/L (0-32); Blood Urea Nitrogen 6 mg/dL (6-20); Calcium 8.3 mg/dL (8.5-10.5); Carbon Dioxide 21 mmol/L (22-29); Chloride 105 mmol/L (98-107); Creatinine Clr Calc Pharmacy 138.1732; Globulin 2.8 g/dL (1.3-4.6); Glomerular Filtration Rate 101.1 mL/min (90-130); Glucose 91 mg/dL (65-115); Osmolality Calculated 279 mOsm/kg (285-295); Potassium 3.7 mmol/L (3.5-5.1); Sodium 136 mmol/L (136-145); Total Bilirubin 0.2 mg/dL (0.15-1.2); Total Protein 6.9 g/dL (6.6-8.7)
--- NOTE | 2024-06-26 23:47 | ED_ITS ---
<Statement entered by Justin Dumont MD - 06/27/24 03:50> The ultrasound did reveal a gestational sac in the uterus measuring 5 weeks. I discussed this case with the scenic artist. Patient has an appointment with her scenic artist on Friday. She was discharged in stable condition. HPI - 2 General: Chief complaint: Vaginal Bleeding Stated complaint: possibe atopic preg, pain is muchworse since thurs Time Seen by Provider: 06/26/24 22:23 History of Present Illness: Latha Mckay is a 24-year-old female who presents to the emergency department with complaints of abdominal pain, vaginal bleeding. Onset of symptoms 3 days ago. Patient is a A3. She reports that this is a new . She developed abdominal discomfort and was evaluated on 06/24/2024. She underwent ultrasound as well as laboratory evaluation. He ultrasound was inconclusive on 06/24. It revealed a closed cervix with a left ovary increased vascularity and complex cystic structure. There was concerns for this complex structure being a possible ectopic . Patient now presents with ongoing abdominal pain/cramping, light brown vaginal bleeding, and increased concern. Date of Last Menstrual Period: 05/02/24 Associated symptoms: Reports dyspareunia Related Data Home Medications Medication Instructions Recorded Confirmed escitalopram oxalate 20 mg tablet 20 mg PO QAM 10/22/23 04/16/24 (Lexapro) trazodone 50 mg tablet 100 mg PO BEDTIME PRN insomnia 10/22/23 04/16/24 Previous Rx's Medication Instructions Recorded propranolol 20 mg tablet 20 mg PO BID PRN anxiety #60 tabs 08/14/23 cyclobenzaprine 5 mg tablet 5 mg PO TID PRN muscle spasm #14 11/09/23 tabs tramadol 50 mg tablet 50 mg PO Q8H PRN pain #14 tabs 11/09/23 ciprofloxacin HCl 500 mg tablet 500 mg PO Q12H #14 tabs 03/16/24 (Cipro) naproxen 500 mg tablet 500 mg PO BID PRN pain #20 tabs 03/18/24 Allergies Allergy/AdvReac Type Severity Reaction Status Date / Time amoxicillin Allergy ALGY-Hives Verified 04/16/24 14:55 doxycycline Allergy ALGY-Hives Verified 04/16/24 14:55 ketorolac Allergy ADR-Nausea Verified 04/16/24 14:55 ondansetron Allergy ALGY-Hives Verified 04/16/24 14:55 Penicillins Allergy ALGY-Hives Verified 04/16/24 14:55 red dye Allergy ALGY-Anaphy Verified 04/16/24 14:55 laxis Review of Systems 2 General: Reports: 10 or more systems reviewed and unremarkable except in HPI and below : Reports: pelvic pain and dyspareunia PFSH ED 2 PFSH: Medical History Psychiatric care Family History Denies family history of Colon cancer Ovarian cancer Diabetes Heart disease Breast cancer Hypertension Uterine cancer Thyroid disease Stroke Social History Smoking and tobacco/nicotine status: unknown if used tobacco/nicotine Female Reproductive History: Date of last menstrual period: 05/02/24 Physical Exam 2 Const: COMMON NORMALS: alert HENMT: COMMON NORMALS: normocephalic HEAD & SCALP: normocephalic Neck/C-Spine: COMMON NORMALS: full ROM Resp: COMMON NORMALS: normal respiratory effort and clear to auscultation bilaterally AUSCULTATION: clear to auscultation bilaterally Cardio: COMMON NORMALS: regular rate RATE: regular rate GI: COMMON NORMALS: Soft to palpation PALPATION: Yes Soft to palpation Back/Pelvis: COMMON NORMALS: thoracic and lumbar spine normal to inspection Extremity: COMMON NORMALS: full ROM Neuro: SENSORIUM/ORIENTATION: Yes alert Skin: COMMON NORMALS: turgor normal GENERAL SKIN EXAM: turgor normal Course 2 Vital Signs: Vital signs: Vital Signs Temperature 98.4 F 06/26/24 21:37 Pulse Rate 98 06/26/24 23:52 Respiratory Rate 16 06/26/24 23:52 Blood Pressure 136/86 06/26/24 23:52 Pulse Oximetry 100 06/26/24 23:52 Oxygen Delivery Me thod Room Air 06/26/24 23:52 MDM - OB/Uterine Contractions Medical Decision Making Patient evaluated in the emergency department today for vaginal bleeding, abdominal pain and approximately 5 weeks . Patient was evaluated here in the emergency department on 06/24/2024. She underwent an ultrasound that did not rule in rule out intrauterine but did reveal a left ovary cystic lesion type structure that ectopic could not be ruled out. Her initial quant was 500 and today was 1594. There is no evidence of UTI, hemoglobin is stable and no electrolyte abnormalities. I did speak with the OB on-call at 11:40 PM who recommended repeat ultrasound tonight. We are currently awaiting ultrasound Transitioning care to Dr Dumont Lab Data 06/26/24 23:11 06/26/24 23:11 Laboratory Results WBC 7.76 10^3/uL (3.29-11.43) 06/26/24 23:11 RBC 4.74 10^6/uL (3.85-5.65) 06/26/24 23:11 Hgb 12.80 g/dL (11.27-16.99) 06/26/24 23:11 Hct 40.1 % (36-47) 06/26/24 23:11 MCV 84.6 fl (85-98) L 06/26/24 23:11 MCH 27.0 pg (27-33) 06/26/24 23:11 MCHC 31.9 g/dL (30-55) 06/26/24 23:11 RDW 15.6 % (12.1-15.1) H 06/26/24 23:11 Plt Count 253 10^3/cmm (157-399) 06/26/24 23:11 MPV 10.5 fL (7.4-10.4) H 06/26/24 23:11 Neut % (Auto) 69.2 % 06/26/24 23:11 Lymph % (Auto) 22.4 % 06/26/24 23:11 [place] % (Auto) 6.8 % 06/26/24 23:11 Eos % (Auto) 0.8 % 06/26/24 23:11 Baso % (Auto) 0.4 % 06/26/24 23:11 Neut # (Auto) 5.37 10^3/uL (1.8-7.7) 06/26/24 23:11 Lymph # (Auto) 1.7 10^3/uL (0.8-4.8) 06/26/24 23:11 [place] # (Auto) 0.5 10^3/uL (0.2-0.9) 06/26/24 23:11 Eos # (Auto) 0.1 10^3/uL (0.0-0.8) 06/26/24 23:11 Baso # (Auto) 0.0 10^3/uL (0.0-0.1) 06/26/24 23:11 Nucleated RBC % (auto) 0 % 06/26/24 23:11 Nucleated RBCs # 0.0 /100WBC 06/26/24 23:11 Sodium 136 mmol/L (136-145) 06/26/24 23:11 Potassium 3.7 mmol/L (3.5-5.1) 06/26/24 23:11 Chloride 105 mmol/L (98-107) 06/26/24 23:11 Carbon Dioxide 21 mmol/L (22-29) L 06/26/24 23:11 Anion Gap 13.7 (5-19) 06/26/24 23:11 BUN 6 mg/dL (6-20) 06/26/24 23:11 Creatinine 0.7 mg/dL (0.5-0.9) 06/26/24 23:11 GFR Calculation 101.1 mL/min (90-130) 06/26/24 23:11 Glucose 91 mg/dL (65-115) 06/26/24 23:11 Calculated Osmolality 279 mOsm/kg (285-295) L 06/26/24 23:11 Calcium 8.3 mg/dL (8.5-10.5) L 06/26/24 23:11 Total Bilirubin 0.2 mg/dL (0.15-1.2) 06/26/24 23:11 AST 23 U/L (0-32) 06/26/24 23:11 ALT 16 U/L (0-33) 06/26/24 23:11 Alkaline Phosphatase 74 U/L (35-105) 06/26/24 23:11 Total Protein 6.9 g/dL (6.6-8.7) 06/26/24 23:11 Albumin 4.1 g/dL (3.5-5.2) 06/26/24 23:11 Globulin 2.8 g/dL (1.3-4.6) 06/26/24 23:11 Ser , Semi-Qnt 1594.00 mIU/mL 06/26/24 23:11 Urine Color Dark yellow (Yellow) A 06/26/24 22:56 Urine Appearance Clear (CLEAR) 06/26/24 22:56 Urine pH 6.0 (5-7) 06/26/24 22:56 Ur Specific [place] 1.035 (1.005-1.030) H 06/26/24 22:56 Urine Protein 1+ (Negative) A 06/26/24 22:56 Urine Glucose (UA) Negative (Normal) 06/26/24 22:56 Urine Ketones 3+ (Negative) H 06/26/24 22:56 Urine Blood Negative (Negative) 06/26/24 22:56 Urine Nitrate Negative (Negative) 06/26/24 22:56 Urine Bilirubin Negative (Negative) 06/26/24 22:56 Urine Urobilinogen 1.0 mg/dL (Negative) 06/26/24 22:56 Ur Leukocyte Esterase Trace (Negative) A 06/26/24 22:56 Urine RBC 0-2 /hpf (0-2) 06/26/24 22:56 Urine WBC 0-5 /hpf (0-5) 06/26/24 22:56 Ur Squamous Epith Cells 11-20 /hpf (0-5) 06/26/24 22:56 Amorphous Sediment Not Reportable 06/26/24 22:56 Urine Bacteria Trace /hpf (NONE) 06/26/24 22:56 Hyaline Casts 1.65 /lpf 06/26/24 22:56 No radiology studies performed this visit Discharge Plan Discharge Condition: Stable Prescriptions: No Action propranolol 20 mg tablet 20 mg PO BID PRN (Reason: anxiety) Qty: 60 1RF tramadol 50 mg tablet 50 mg PO Q8H PRN (Reason: pain) Qty: 14 0RF cyclobenzaprine 5 mg tablet 5 mg PO TID PRN (Reason: muscle spasm) Qty: 14 0RF trazodone 50 mg tablet 100 mg PO BEDTIME PRN (Reason: insomnia) Lexapro 20 mg tablet 20 mg PO QAM Cipro 500 mg tablet 500 mg PO Q12H Qty: 14 0RF naproxen 500 mg tablet 500 mg PO BID PRN (Reason: pain) Qty: 20 0RF Referrals: Hieu Garvin MD [Primary Care Provider] - Coding Level of Care Code ED Recovery Operator for [facility]
[2024-06-26 23:52] VITALS: BP 136/86; PULSE 98; RESP 16; O2SAT 100
--- NOTE | 2024-06-27 00:55 | USR_ITS ---
PROCEDURE INFORMATION: Exam: US First Trimester, Transabdominal and US , Transvaginal Exam date and time: 06/27/2024 1:02 AM Age: 24 years old Clinical indication: complicated by abdominal or pelvic pain; Other: Cramping; Gestational age or lmp: 5w0d; ; Additional info: Abd pain, vag bleed LABS AND CLINICAL REPORTS: Last menstrual period start date: 06/02/2024 Gestational age (Established): 3 w 4 d Estimated due date (Established): 03/09/2025 TECHNIQUE: Imaging protocol: Real-time transabdominal obstetrical ultrasound of the maternal pelvis and a first trimester , less than 14 weeks 0 days, with image documentation. Transvaginal imaging was used for better evaluation of the fetus, adnexa, and/or cervix. COMPARISON: US OB >= 14 weeks fetus [id number] 06/24/2024 4:11 PM FINDINGS: GESTATION: Gestation: Intrauterine gestation. BIOMETRY: Gestational age (AUA): 5 weeks and 1 day Mean sac diameter: 0.39 cm. MATERNAL: Uterus: Unremarkable. Cervix: Cervical length measures 3 cm. Right ovary/adnexa: Unremarkable. Left ovary/adnexa: Thick-walled left ovarian cyst measuring 1.7 x 1.5 x 1.6 cm may represent a hemorrhagic or corpus luteum cyst. Intraperitoneal space: Minimal free fluid. US/US OB <=14 wk fetus w transvag IMPRESSION: Normal intrauterine gestation with an estimated gestational age of 5 weeks and 1 day.
[2024-06-27 01:01] VITALS: BP 123/64; PULSE 76; RESP 16; O2SAT 100
[2024-06-27 01:41] VITALS: BP 130/87; PULSE 84; RESP 16; O2SAT 98
== END 2024-06-27 01:42 | disposition home or self-care (01) ==
PROVIDERS: Emergency Provider Nurse Practitioner; PCP Family Medicine
DX: O26.891 Other specified pregnancy related conditions, first trimester (principal); R10.9 Unspecified abdominal pain; O20.9 Hemorrhage in early pregnancy, unspecified; Z3A.01 Less than 8 weeks gestation of pregnancy
CPT/HCPCS: 36415; 76801; 76817; 80053; 81001; 84702; 85025; 99284

== ENCOUNTER → 2024-06-28 08:57 | Outpatient (BNVA) | payer MEDICAID, SELFPAY | PROVIDERS: PCP Family Medicine; Visit Provider Obstetrics & Gynecology | DX: O20.9 Hemorrhage in early pregnancy, unspecified (principal); Z3A.01 Less than 8 weeks gestation of pregnancy | CPT/HCPCS: 84702 ==

== ENCOUNTER → 2024-07-02 13:07 | Outpatient (BNVA) | payer MEDICAID, SELFPAY | PROVIDERS: PCP Family Medicine; Visit Provider Nurse Practitioner Women's Health | DX: O20.0 Threatened abortion (principal); N92.6 Irregular menstruation, unspecified | CPT/HCPCS: 81025; 83036; 84439; 84443; 84702; 86850; 86900; 87086 ==

== ENCOUNTER → 2024-07-05 08:48 | Outpatient (BNVA) | payer MEDICAID, SELFPAY | PROVIDERS: PCP Family Medicine; Visit Provider Nurse Practitioner Women's Health | DX: O20.0 Threatened abortion (principal) | CPT/HCPCS: 84702 ==

== ENCOUNTER → 2024-07-07 08:52 | Outpatient (BNVA) | payer MEDICAID, SELFPAY | PROVIDERS: PCP Family Medicine; Visit Provider Nurse Practitioner Women's Health | DX: O20.0 Threatened abortion (principal) | CPT/HCPCS: 84702 ==

== ENCOUNTER → 2024-07-15 07:55 | Outpatient (BNVA) | payer MEDICAID, SELFPAY | PROVIDERS: PCP Family Medicine; Visit Provider Nurse Practitioner Women's Health | DX: Z36.87 Encounter for antenatal screening for uncertain dates (principal); Z3A.01 Less than 8 weeks gestation of pregnancy | CPT/HCPCS: 76801 ==

== ENCOUNTER 2024-08-06 22:39 | Emergency (ER) | payer MEDICAID, SELFPAY ==
[2024-08-06 23:06] VITALS: BP 111/78; PULSE 85; RESP 16; TEMP 36.6; O2SAT 98
--- NOTE | 2024-08-06 23:22 | W.ED.EXTPRO ---
HPI - Extremity Problem General: Chief complaint: Extremity Problem,Nontraumatic Stated complaint: Possible Blood Clot Time Seen by Provider: 08/06/24 22:51 Source: patient Mode of arrival: ambulatory Limitations: no limitations History of Present Illness: Patient is a 24-year-old female presents to ED today with a complaint of pain in her right leg. Patient states she is approximately 10 weeks . She has been having some sciatic like pain starting in her right lower back and radiating into her right buttock and down her posterior right thigh and leg. She was reportedly seen at a medical facility in [place] yesterday. She states for what ever reason they did a D-dimer test and told her it was elevated. They did not have ultrasound capability to rule out a DVT. They told her to be seen a soon as possible to rule this out. Patient has not noticed any swelling or redness to the leg. She is not having any chest pain, shortness of breath, difficulty breathing. No previous history of DVT/PE. States she does have a history of protein S deficiency. MD Complaint: extremity pain Onset (ago): day(s) Pain Consistency: constant Location: right and lower extremity Associated symptoms: Deny chest pain or rash Related Data Home Medications Medication Instructions Recorded Confirmed No Known Home Medications 07/02/24 08/02/24 Allergies Allergy/AdvReac Type Severity Reaction Status Date / Time amoxicillin Allergy ALGY-Hives Verified 08/06/24 23:11 doxycycline Allergy ALGY-Hives Verified 08/06/24 23:11 ketorolac Allergy ADR-Nausea Verified 08/06/24 23:11 ondansetron Allergy ALGY-Hives Verified 08/06/24 23:11 Penicillins Allergy ALGY-Hives Verified 08/06/24 23:11 red dye Allergy ALGY-Anaphy Verified 08/06/24 23:11 laxis Review of Systems Card: Denies: chest pain, irregular heart rhythm, edema, swelling of feet/ankles, lightheadedness, syncope or pre-syncope Resp: Denies: dyspnea, pain on inspiration or hemoptysis : Denies: flank pain, dysuria, vaginal bleeding or pelvic pain Musc: Reports: back pain and extremity pain; Denies: neck pain, extremity swelling, joint swelling, joint redness, joint warmth or limited range of motion Skin/Breast: Denies: rash Neuro: Denies: numbness in extremities, weakness in extremities, sensory changes or difficulty walking [facility] ED PFS: Medical History Protein S deficiency (~2018) treated with lovenox in her pregnancies Abnormal uterine bleeding (AUB) Generalized anxiety disorder with panic attacks Major depressive disorder, recurrent, severe with psychotic symptoms Post-traumatic stress disorder, chronic Psychiatric care Surgical History H/O dilation and curettage (~08/28/23) with hysteroscopy performed by Rom at [facility] for AUB-- benign polyp, negative for hyperplasia, atypia or malignancy. Complicated by uterine perforation. S/P LEEP (status post loop electrosurgical excision procedure) (~08/28/23) 3 LEEP procedures in total. Her last LEEP was 03/[address] Cueto. KARLA-1 pathology Family History Denies family history of Colon cancer Ovarian cancer Diabetes Heart disease Breast cancer Hypertension Uterine cancer Thyroid disease Stroke Social History Smoking and tobacco/nicotine status: current every day tobacco/nicotine user e-cigarettes Alcohol intake: never Substance/Drug Use: current Substance/Drug use frequency: daily Other substance/drug use details: smoking Current occupational status: unemployed Physical Exam Const: COMMON NORMALS: no acute distress, average body habitus, patient oriented x3, no limitations, healthy appearing, alert and well nourished Resp: COMMON NORMALS: normal respiratory effort and clear to auscultation bilaterally AUSCULTATION: clear to auscultation bilaterally Cardio: COMMON NORMALS: regular rate and regular rhythm RATE: regular rate RHYTHM: regular rhythm Back/Pelvis: COMMON NORMALS: thoracic and lumbar spine normal to inspection, no thoracic nor lumbar tenderness, thoraco-lumbar ROM normal and straight leg raise negative bilaterally LUMBAR SPINE/LOWER BACK: No lumbar spinal tenderness, No paraspinal muscle tenderness and Yes straight leg raise negative bilaterally PELVIS: Yes sciatic notch tenderness on the right SACRUM: no tenderness COCCYX: no tenderness Extremity: COMMON NORMALS: normal to inspection, full ROM, capillary refill normal, no joint enlargement, no clubbing, cyanosis or edema, no calf tenderness and no pedal edema NARRATIVE EXTREMITY EXAM: reports tenderness posterior aspect R LE; no edema/warmth/palpable cords appreciated; distal DP/PT pulses and cap refill normal GENERAL: Yes normal exam except as noted Neuro: COMMON NORMALS: patient oriented x3, moves all extremities, no focal motor deficits, no sensory deficits noted and gait normal SENSORIUM/ORIENTATION: Yes alert Skin: COMMON NORMALS: no rashes or lesions noted GENERAL SKIN EXAM: no rashes or lesions noted Course Vital Signs: Vital signs: Vital Signs Temperature 97.8 F 08/06/24 23:06 Pulse Rate 85 08/06/24 23:06 Respiratory Rate 16 08/06/24 23:06 Blood Pressure 111/78 08/06/24 23:06 Pulse Oximetry 98 08/06/24 23:06 Oxygen Delivery Me thod Room Air 08/06/24 23:06 MDM - Extremity (Nontraumatic) Medical Decision Making US of her right lower extremity negative for DVT. Patient will be allowed discharge. She will follow-up with PCP and/or OB. Return precautions discussed. XR interpretation done by ED provider, pending radiology final review Discharge Plan Discharge Patient Disposition: Home Clinical Impression: Acute right-sided back pain with sciatica Condition: Stable Prescriptions: No Action No Known Home Medications Discharge Orders: Discharge ED (Routine); Ordered 08/07/24 Ordered By: Joellen Milan Referrals: Hieu Garvin MD [Primary Care Provider] - Patient Instructions: Sciatica Activity Restrictions/Additional Instructions: As we discussed, your ultrasound was negative for DVT to your right lower extremity. You can follow-up with primary care and/or OB as scheduled. Coding Level of Care Code ED Binder And Box Builder for Inessa Munoz
[2024-08-06 23:45] VITALS: BP 130/74; PULSE 78; RESP 17; O2SAT 92
[2024-08-07 00:15] VITALS: BP 126/78; PULSE 63; RESP 17; O2SAT 94
[2024-08-07 00:30] VITALS: BP 126/81; PULSE 67; RESP 18; O2SAT 96
[2024-08-07 00:41] VITALS: BP 135/73; PULSE 65; RESP 16; O2SAT 95
--- NOTE | 2024-08-07 23:22 | USR_ITS ---
PROCEDURE INFORMATION: Exam: US Duplex Right Lower Extremity Veins, Limited Exam date and time: 08/07/2024 12:25 AM Age: 24 years old Clinical indication: Pain; Leg, lower; Right; Additional info: Pain, reportedly elevated ddimer TECHNIQUE: Imaging protocol: Real-time duplex ultrasound of the right extremity with 2-D saavedra scale, color Doppler flow and spectral waveform analysis including responses to compression and other maneuvers (when performed) with image documentation. Limited exam was focused on the right lower extremity veins. COMPARISON: US OB <= 14 weeks fetus [id number] 07/15/2024 8:07 AM FINDINGS: Right deep veins: Unremarkable. The common femoral, femoral, proximal profunda femoral and popliteal veins are patent without thrombus. Normal Doppler waveforms. Normal augmentation response. Superficial veins: Greater saphenous vein at the saphenofemoral junction is patent without thrombus. Soft tissues: Unremarkable. US/[place] [id number] IMPRESSION: No evidence of deep vein thrombosis.
== END 2024-08-07 01:04 | disposition home or self-care (01) ==
PROVIDERS: Emergency Provider Physician Assistant; PCP Family Medicine
DX: M54.31 Sciatica, right side (principal); M54.50 Low back pain, unspecified; F17.290 Nicotine dependence, other tobacco product, uncomplicated
CPT/HCPCS: 93971; 99284

== ENCOUNTER → 2024-08-11 14:08 | Outpatient (BNVA) | payer MEDICAID, SELFPAY | PROVIDERS: PCP Family Medicine; Visit Provider Nurse Practitioner Women's Health | DX: O09.899 Supervision of other high risk pregnancies, unspecified trimester (principal) | CPT/HCPCS: 80307; 84315; 85025; 86592; 86762; 86803; 86850; 86900; 87086; 87340; 87806 ==

== ENCOUNTER → 2024-08-13 08:53 | Outpatient (BNVA) | payer MEDICAID, SELFPAY | PROVIDERS: PCP Family Medicine; Visit Provider Nurse Practitioner Women's Health | DX: D68.59 Other primary thrombophilia (principal) | CPT/HCPCS: 85610; 85730 ==

== ENCOUNTER → 2024-08-18 10:30 | Outpatient (BNVA) | payer MEDICAID, SELFPAY | PROVIDERS: PCP Family Medicine; Visit Provider Nurse Practitioner Women's Health | DX: O09.899 Supervision of other high risk pregnancies, unspecified trimester (principal); Z3A.12 12 weeks gestation of pregnancy | CPT/HCPCS: 76801; 76817 ==

== ENCOUNTER 2024-08-20 10:52 | Emergency (ER) | payer MEDICAID, SELFPAY ==
[2024-08-20 10:57] VITALS: BP 135/86; PULSE 103; RESP 17; TEMP 36.9; O2SAT 98; BMI 30.7
--- NOTE | 2024-08-20 11:10 | W.ED.GENADLT ---
HPI - General Adult General: Chief complaint: Extremity Problem,Nontraumatic Stated complaint: right hand pain, numb fingers into arm 13 wks preg Time Seen by Provider: 08/20/24 10:56 Source: patient Mode of arrival: ambulatory Limitations: no limitations History of Present Illness: 24-year-old female states she been having right wrist pain has been going on for roughly a week states it is in the middle of her wrist wrist worse with gripping and movement denies any known injuries she is currently 13 weeks has no complaints. Associated symptoms: Deny chest pain, dyspnea, headache(s), nausea, rash or vomiting Related Data Previous Rx's Medication Instructions Recorded buspirone 5 mg tablet 5 mg PO BID #60 tabs 08/11/24 enoxaparin 40 mg/0.4 mL 40 mg (0.4 mL) SUBCUT Q24H #4 mL 08/11/24 subcutaneous syringe (Lovenox) Allergies Allergy/AdvReac Type Severity Reaction Status Date / Time amoxicillin Allergy ALGY-Hives Verified 08/20/24 11:04 doxycycline Allergy ALGY-Hives Verified 08/20/24 11:04 ketorolac Allergy ADR-Nausea Verified 08/20/24 11:04 ondansetron Allergy ALGY-Hives Verified 08/20/24 11:04 Penicillins Allergy ALGY-Hives Verified 08/20/24 11:04 red dye Allergy ALGY-Anaphy Verified 08/20/24 11:04 laxis Review of Systems Const: Denies: fever(s), chills, body aches or change in appetite ENMT: Denies: throat pain or dental pain Card: Denies: chest pain Resp: Denies: dyspnea GI: Denies: abdominal pain, nausea, vomiting or diarrhea Musc: Reports: extremity pain; Denies: neck pain or back pain Skin/Breast: Denies: rash Neuro: Denies: headache(s) PFSH ED PFSH: Medical History (Updated 08/20/24 @ 11:03 by Sherley Sapp MD) Protein S deficiency (~2019) treated with lovenox in her pregnancies Abnormal uterine bleeding (AUB) Generalized anxiety disorder with panic attacks Major depressive disorder, recurrent, severe with psychotic symptoms Post-traumatic stress disorder, chronic Surgical History H/O dilation and curettage (~08/28/23) with hysteroscopy performed by Rom at [facility] for AUB-- benign polyp, negative for hyperplasia, atypia or malignancy. Complicated by uterine perforation. S/P LEEP (status post loop electrosurgical excision procedure) (~08/28/23) 3 LEEP procedures in total. Her last LEEP was 03/[address] Cueto. KARLA-1 pathology Family History Denies family history of Colon cancer Ovarian cancer Diabetes Heart disease Breast cancer Hypertension Uterine cancer Thyroid disease Stroke Social History Smoking and tobacco/nicotine status: unknown if used tobacco/nicotine Alcohol intake: never Substance/Drug Use: current Substance/Drug use frequency: daily Other substance/drug use details: smoking Current occupational status: unemployed Physical Exam Const: COMMON NORMALS: no acute distress, patient oriented x3 and healthy appearing HENMT: COMMON NORMALS: normocephalic and atraumatic HEAD & SCALP: normocephalic and atraumatic Eye: COMMON NORMALS: conjunctivae normal CONJUNCTIVA: Yes conjunctivae normal Neck/C-Spine: COMMON NORMALS: full ROM and supple Chest: COMMONS NORMALS: normal inspection of the chest Resp: COMMON NORMALS: normal respiratory effort Cardio: COMMON NORMALS: regular rate, regular rhythm and No murmurs present (Cardio) RATE: regular rate RHYTHM: regular rhythm Extremity: COMMON NORMALS: full ROM NARRATIVE EXTREMITY EXAM: Tenderness along anterior wrist no obvious deformity pulses sensation intact Neuro: COMMON NORMALS: patient oriented x3, moves all extremities and no focal motor deficits Psych: COMMON NORMALS: mental status grossly normal, Normal thought process present and cooperative THOUGHT PROCESS: Normal thought process present Skin: COMMON NORMALS: no rashes or lesions noted and no wounds GENERAL SKIN EXAM: no rashes or lesions noted Course Vital Signs: Vital signs: Vital Signs Temperature 98.4 F 08/20/24 10:57 Pulse Rate 103 H 08/20/24 10:57 Respiratory Rate 17 08/20/24 10:57 Blood Pressure 135/86 08/20/24 10:57 Pulse Oximetry 98 08/20/24 10:57 Oxygen Delivery Me thod Room Air 08/20/24 10:57 [facility] - General Adult Medical Decision Making Patient presents here with wrist pain could be carpal tunnel with her symptoms exam here is benign no signs of fractures we will get her follow-up with Dr. Sandhu she is return if worsening she understands agrees plan No radiology studies performed this visit Discharge Plan Discharge Patient Disposition: Home Clinical Impression: Pain in right wrist Condition: Stable Prescriptions: No Action buspirone 5 mg tablet 5 mg PO BID Qty: 60 0RF enoxaparin [Lovenox] 40 mg/0.4 mL syringe 40 mg SUBCUT Q24H Qty: 4 3RF Discharge Orders: Discharge ED (Routine); Ordered 08/20/24 Ordered By: Sherley Sapp Referrals: Hieu Garvin MD [Primary Care Provider] - Albert Sandhu DO [Physician] - 4-7 days Discharge Diet: Advance as tolerated Discharge Activity: Resume usual activity Patient Instructions: Carpal Tunnel Syndrome (DC) Coding Level of Care Code ED Process Architect for Inessa Munoz
[2024-08-20 11:28] VITALS: BP 133/77; PULSE 77; O2SAT 98
--- NOTE | 2024-08-23 07:15 | DCPLANNER ---
messaged ortho for er f/u
== END 2024-08-20 11:30 | disposition home or self-care (01) ==
PROVIDERS: Emergency Provider Emergency Medicine; PCP Family Medicine
DX: M25.531 Pain in right wrist (principal); Z3A.13 13 weeks gestation of pregnancy
CPT/HCPCS: 84315; 87491; 87591; 87661; 88175; 99282

== ENCOUNTER → 2024-09-15 11:09 | Outpatient (BNVA) | payer MEDICAID, SELFPAY | PROVIDERS: PCP Family Medicine; Visit Provider Obstetrics & Gynecology | DX: O26.899 Other specified pregnancy related conditions, unspecified trimester (principal); R35.0 Frequency of micturition; Z36.9 Encounter for antenatal screening, unspecified | CPT/HCPCS: 76817; 81000; 87086 ==

== ENCOUNTER 2024-09-18 11:29 | Emergency (ER) | payer MEDICAID, SELFPAY ==
[2024-09-18 11:50] VITALS: BP 134/78; PULSE 99; RESP 16; TEMP 37.1; O2SAT 99; BMI 31.8
[2024-09-18 13:11] VITALS: BP 126/74; PULSE 87; RESP 16; O2SAT 100
--- NOTE | 2024-09-18 13:20 | ED_ITS ---
HPI - General Adult General: Chief complaint: General Medical Stated complaint: lump under arm Time Seen by Provider: 09/18/24 13:00 Source: patient Mode of arrival: ambulatory Limitations: no limitations History of Present Illness: 24-year-old female who states she had an abscess under her left armpit for the last 4 days she saw urgent care 2 days ago they did not drain it then placed on Keflex states that it has gotten larger and more painful she denies any fever. She has had no drainage from the site Associated symptoms: Deny chest pain, dyspnea, headache(s), nausea, rash or vomiting Related Data Previous Rx's Medication Instructions Recorded buspirone 5 mg tablet 5 mg PO BID #60 tabs 08/11/24 enoxaparin 40 mg/0.4 mL 40 mg (0.4 mL) SUBCUT Q24H #4 mL 08/11/24 subcutaneous syringe (Lovenox) cephalexin 500 mg tablet 500 mg PO QID 7 days #28 tabs 09/17/24 sulfamethoxazole 800 1 tab PO BID 10 days #20 tabs 09/18/24 mg-trimethoprim 160 mg tablet (Bactrim DS) Allergies Allergy/AdvReac Type Severity Reaction Status Date / Time amoxicillin Allergy ALGY-Hives Verified 09/17/24 15:16 doxycycline Allergy ALGY-Hives Verified 09/17/24 15:16 ketorolac Allergy ADR-Nausea Verified 09/17/24 15:16 ondansetron Allergy ALGY-Hives Verified 09/17/24 15:16 Penicillins Allergy ALGY-Hives Verified 09/17/24 15:16 red dye Allergy ALGY-Anaphy Verified 09/17/24 15:16 laxis Review of Systems Const: Denies: fever(s), chills, body aches or change in appetite ENMT: Denies: throat pain or dental pain Card: Denies: chest pain Resp: Denies: dyspnea GI: Denies: abdominal pain, nausea, vomiting or diarrhea Musc: Denies: neck pain or back pain Skin/Breast: Denies: rash Neuro: Denies: headache(s) PFS ED PFSH: Medical History Protein S deficiency (~2018) treated with lovenox in her pregnancies Abnormal uterine bleeding (AUB) Generalized anxiety disorder with panic attacks Major depressive disorder, recurrent, severe with psychotic symptoms Post-traumatic stress disorder, chronic Surgical History H/O dilation and curettage (~08/28/23) with hysteroscopy performed by Rom at [facility] for AUB-- benign polyp, negative for hyperplasia, atypia or malignancy. Complicated by uterine perforation. S/P LEEP (status post loop electrosurgical excision procedure) (~08/28/23) 3 LEEP procedures in total. Her last LEEP was 03/[address] Cueto. KARLA-1 pathology Family History Denies family history of Colon cancer Ovarian cancer Diabetes Heart disease Breast cancer Hypertension Uterine cancer Thyroid disease Stroke Social History Smoking and tobacco/nicotine status: never used tobacco/nicotine Alcohol intake: never Substance/Drug Use: current Substance/Drug use frequency: daily Other substance/drug use details: smoking Current occupational status: unemployed Physical Exam Const: COMMON NORMALS: no acute distress, patient oriented x3 and healthy appearing HENMT: COMMON NORMALS: normocephalic and atraumatic HEAD & SCALP: normocephalic and atraumatic Neck/C-Spine: COMMON NORMALS: full ROM and supple Chest: COMMONS NORMALS: normal inspection of the chest Resp: COMMON NORMALS: normal respiratory effort Cardio: COMMON NORMALS: regular rate RATE: regular rate Extremity: COMMON NORMALS: normal to inspection and full ROM Neuro: COMMON NORMALS: patient oriented x3, moves all extremities and no focal motor deficits Psych: COMMON NORMALS: mental status grossly normal, Normal thought process present and cooperative THOUGHT PROCESS: Normal thought process present Skin: NARRATIVE SKIN EXAM: 4 cm abscess noted to left armpit Procedures Abscess I/D Site: other (left armpit) Local Anesthetic: lidocaine 1% Amount of anesthesia used (mL): 10 Technique: incised with #11 blade Irrigation: No Packing used?: none Course Vital Signs: Vital signs: Vital Signs Temperature 98.7 F 09/18/24 11:50 Pulse Rate 87 09/18/24 13:11 Respiratory Rate 16 09/18/24 13:11 Blood Pressure 126/74 09/18/24 13:11 Pulse Oximetry 100 09/18/24 13:11 Oxygen Delivery Me thod Room Air 09/18/24 13:11 MDM - General Adult Medical Decision Making Patient presents here with abscess to her arm. It was incised and drained we will place her on Bactrim she is follow-up with PCP return if worsening. Medical Records I reviewed the patient's medical records. No radiology studies performed this visit Discharge Plan Discharge Patient Disposition: Home Clinical Impression: Abscess Condition: Stable Prescriptions: New sulfamethoxazole-trimethoprim [Bactrim DS] 800-160 mg tablet 1 tab PO BID 10 Days Qty: 20 0RF No Action buspirone 5 mg tablet 5 mg PO BID Qty: 60 0RF enoxaparin [Lovenox] 40 mg/0.4 mL syringe 40 mg SUBCUT Q24H Qty: 4 3RF cephalexin 500 mg tablet 500 mg PO QID 7 Days Qty: 28 0RF Discharge Orders: Discharge ED (Routine); Ordered 09/18/24 Ordered By: Sherley Sapp Referrals: Hieu Garvin MD [Primary Care Provider] - Discharge Diet: Advance as tolerated Discharge Activity: Resume usual activity Patient Instructions: Abscess (ED) Coding Level of Care Code ED Milking Machine Mechanic for Inessa Munoz
[2024-09-18] MEDS: lidocaine 1% 10 ML INJ SUBCUT (13:27)
[2024-09-18 13:39] VITALS: BP 101/66; PULSE 86; RESP 18; O2SAT 98
== END 2024-09-18 13:42 | disposition home or self-care (01) ==
PROVIDERS: Emergency Provider Emergency Medicine; PCP Family Medicine
DX: L02.412 Cutaneous abscess of left axilla (principal)
CPT/HCPCS: 10060; 87070; 87077; 87186; 99282

== ENCOUNTER 2024-09-18 15:46 | Emergency (ER) | payer BC, MEDICAID, SELFPAY ==
[2024-09-18 15:49] VITALS: BP 148/91; PULSE 100; RESP 16; TEMP 36.7; O2SAT 98; BMI 31.8
[2024-09-18] MEDS: HYDROcodone-acetaminophen 5-325 mg Tablet 1 TAB PO (16:02)
--- NOTE | 2024-09-18 16:11 | W.ED.GENADLT ---
HPI - General Adult General: Chief complaint: General Medical Stated complaint: pain left underarm Time Seen by Provider: 09/18/24 15:48 Source: patient Mode of arrival: ambulatory Limitations: no limitations History of Present Illness: 24-year-old female who was seen here earlier today for an abscess to the left armpit. She had incise drain states she been having some increasing pain. She states she taken some Tylenol still having pain is 8 out of 10 she had some slight drainage denies any fever Associated symptoms: Deny chest pain, dyspnea, headache(s), nausea, rash or vomiting Related Data Previous Rx's Medication Instructions Recorded buspirone 5 mg tablet 5 mg PO BID #60 tabs 08/11/24 enoxaparin 40 mg/0.4 mL 40 mg (0.4 mL) SUBCUT Q24H #4 mL 08/11/24 subcutaneous syringe (Lovenox) cephalexin 500 mg tablet 500 mg PO QID 7 days #28 tabs 09/17/24 hydrocodone 5 mg-acetaminophen 325 1 tab PO Q6H PRN pain #14 tabs 09/18/24 mg tablet sulfamethoxazole 800 1 tab PO BID 10 days #20 tabs 09/18/24 mg-trimethoprim 160 mg tablet (Bactrim DS) Allergies Allergy/AdvReac Type Severity Reaction Status Date / Time amoxicillin Allergy ALGY-Hives Verified 09/17/24 15:16 doxycycline Allergy ALGY-Hives Verified 09/17/24 15:16 ketorolac Allergy ADR-Nausea Verified 09/17/24 15:16 ondansetron Allergy ALGY-Hives Verified 09/17/24 15:16 Penicillins Allergy ALGY-Hives Verified 09/17/24 15:16 red dye Allergy ALGY-Anaphy Verified 09/17/24 15:16 laxis Review of Systems Const: Denies: fever(s), chills, body aches or change in appetite ENMT: Denies: throat pain or dental pain Card: Denies: chest pain Resp: Denies: dyspnea GI: Denies: abdominal pain, nausea, vomiting or diarrhea Musc: Denies: neck pain or back pain Skin/Breast: Denies: rash Neuro: Denies: headache(s) PFSH ED PFSH: Medical History Protein S deficiency (~2018) treated with lovenox in her pregnancies Abnormal uterine bleeding (AUB) Generalized anxiety disorder with panic attacks Major depressive disorder, recurrent, severe with psychotic symptoms Post-traumatic stress disorder, chronic Surgical History H/O dilation and curettage (~08/28/23) with hysteroscopy performed by Rom at [facility] for AUB-- benign polyp, negative for hyperplasia, atypia or malignancy. Complicated by uterine perforation. S/P LEEP (status post loop electrosurgical excision procedure) (~08/28/23) 3 LEEP procedures in total. Her last LEEP was 03/[address] Cueto. KARLA-1 pathology Family History Denies family history of Colon cancer Ovarian cancer Diabetes Heart disease Breast cancer Hypertension Uterine cancer Thyroid disease Stroke Social History Smoking and tobacco/nicotine status: never used tobacco/nicotine Alcohol intake: never Substance/Drug Use: current Substance/Drug use frequency: daily Other substance/drug use details: smoking Current occupational status: unemployed Physical Exam Const: COMMON NORMALS: no acute distress, patient oriented x3 and healthy appearing HENMT: COMMON NORMALS: normocephalic and atraumatic HEAD & SCALP: normocephalic and atraumatic Eye: COMMON NORMALS: conjunctivae normal CONJUNCTIVA: Yes conjunctivae normal Neck/C-Spine: COMMON NORMALS: full ROM and supple Chest: COMMONS NORMALS: normal inspection of the chest Resp: COMMON NORMALS: normal respiratory effort Cardio: COMMON NORMALS: regular rate RATE: regular rate Extremity: COMMON NORMALS: normal to inspection and full ROM Neuro: COMMON NORMALS: patient oriented x3, moves all extremities and no focal motor deficits Psych: COMMON NORMALS: mental status grossly normal, Normal thought process present and cooperative THOUGHT PROCESS: Normal thought process present Skin: COMMON NORMALS: no rashes or lesions noted NARRATIVE SKIN EXAM: Abscess left armpit is still open and draining still no change GENERAL SKIN EXAM: no rashes or lesions noted Course Vital Signs: Vital signs: Vital Signs Temperature 98.0 F 09/18/24 15:49 Pulse Rate 100 09/18/24 15:49 Respiratory Rate 16 09/18/24 15:49 Blood Pressure 148/91 09/18/24 15:49 Pulse Oximetry 98 09/18/24 15:49 Oxygen Delivery Me thod Room Air 09/18/24 15:49 MDM - General Adult Medical Decision Making Patient presents with pain from her abscess we will give her hydrocodone here and give her prescription she is to follow-up with PCP return if worsening she understands agrees to plan No radiology studies performed this visit Discharge Plan Discharge Patient Disposition: Home Clinical Impression: Abscess Condition: Stable Prescriptions: New hydrocodone-acetaminophen 5-325 mg tablet 1 tab PO Q6H PRN (Reason: pain) Qty: 14 0RF No Action buspirone 5 mg tablet 5 mg PO BID Qty: 60 0RF enoxaparin [Lovenox] 40 mg/0.4 mL syringe 40 mg SUBCUT Q24H Qty: 4 3RF cephalexin 500 mg tablet 500 mg PO QID 7 Days Qty: 28 0RF sulfamethoxazole-trimethoprim [Bactrim DS] 800-160 mg tablet 1 tab PO BID 10 Days Qty: 20 0RF Discharge Orders: Discharge ED (Routine); Ordered 09/18/24 Ordered By: Sherley Sapp Referrals: Hieu Garvin MD [Primary Care Provider] - Discharge Diet: Advance as tolerated Discharge Activity: Resume usual activity Patient Instructions: Abscess (ED), Opioid Safety Coding Level of Care Code ED Pattern Chain Builder for Inessa Munoz
== END 2024-09-18 16:17 | disposition home or self-care (01) ==
PROVIDERS: Emergency Provider Emergency Medicine; PCP Family Medicine
DX: L02.412 Cutaneous abscess of left axilla (principal)
CPT/HCPCS: 99283

== ENCOUNTER 2024-09-18 23:10 | Emergency (ER) | payer MEDICAID, SELFPAY ==
[2024-09-18 23:14] VITALS: BP 141/88; PULSE 136; RESP 16; TEMP 36.8; O2SAT 95; BMI 31.8
--- NOTE | 2024-09-18 23:23 | ECG_ITS ---
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
[2024-09-19] VITALS (10 sets, daily range): BP systolic 112–121; BP diastolic 63–76; PULSE 20–113; RESP 17–35; O2SAT 98–100
--- NOTE | 2024-09-19 00:54 | ED_ITS ---
HPI - Nausea/Vomiting/Diarrhea 2 General: Chief complaint: Nausea/Vomiting/Diarrhea Stated complaint: heart racing, vom blood, chills Time Seen by Provider: 09/19/24 00:37 History of Present Illness: 24-year-old female who is 17 weeks pregn ant. She is here after being seen twice earlier today for a left axillary abscess that was incised and drained earlier today. She is placed on pain medication and antibiotics. Around 6 or 7 PM she began to get palpitations. She became nauseated. She is thrown up 5 or 6 times since that time. She says that there was some streaking blood in the vomitus and there may have been a clot or more than a single clot present. She still nauseated. She is having the pain, and palpitations. Her heart rate was in the 130s on arrival in triage. She has felt feverish all day. She does have a history of protein S deficiency, and is on home Lovenox. Related Data Previous Rx's Medication Instructions Recorded buspirone 5 mg tablet 5 mg PO BID #60 tabs 08/11/24 enoxaparin 40 mg/0.4 mL 40 mg (0.4 mL) SUBCUT Q24H #4 mL 08/11/24 subcutaneous syringe (Lovenox) cephalexin 500 mg tablet 500 mg PO QID 7 days #28 tabs 09/17/24 hydrocodone 5 mg-acetaminophen 325 1 tab PO Q6H PRN pain #14 tabs 09/18/24 mg tablet sulfamethoxazole 800 1 tab PO BID 10 days #20 tabs 09/18/24 mg-trimethoprim 160 mg tablet (Bactrim DS) metoclopramide HCl 10 mg tablet 10 mg PO Q6H 7 days #28 tabs 09/19/24 (Reglan) Allergies Allergy/AdvReac Type Severity Reaction Status Date / Time amoxicillin Allergy ALGY-Hives Verified 09/17/24 15:16 doxycycline Allergy ALGY-Hives Verified 09/17/24 15:16 ketorolac Allergy ADR-Nausea Verified 09/17/24 15:16 ondansetron Allergy ALGY-Hives Verified 09/17/24 15:16 Penicillins Allergy ALGY-Hives Verified 09/17/24 15:16 red dye Allergy ALGY-Anaphy Verified 09/17/24 15:16 laxis PFS ED 2 PFSH: Medical History Protein S deficiency (~2019) treated with lovenox in her pregnancies Abnormal uterine bleeding (AUB) Generalized anxiety disorder with panic attacks Major depressive disorder, recurrent, severe with psychotic symptoms Post-traumatic stress disorder, chronic Surgical History H/O dilation and curettage (~08/28/23) with hysteroscopy performed by Rom at [facility] for AUB-- benign polyp, negative for hyperplasia, atypia or malignancy. Complicated by uterine perforation. S/P LEEP (status post loop electrosurgical excision procedure) (~08/28/23) 3 LEEP procedures in total. Her last LEEP was 03/[address] Cueto. KARLA-1 pathology Family History Denies family history of Colon cancer Ovarian cancer Diabetes Heart disease Breast cancer Hypertension Uterine cancer Thyroid disease Stroke Social History Smoking and tobacco/nicotine status: never used tobacco/nicotine Alcohol intake: never Substance/Drug Use: current Substance/Drug use frequency: daily Other substance/drug use details: smoking Current occupational status: unemployed Physical Exam 2 Const: COMMON NORMALS: no acute distress GENERAL APPEARANCE: cooperative; not ill appearing and not frail appearing HENMT: COMMON NORMALS: normocephalic, atraumatic and Normal external nose present HEAD & SCALP: normocephalic and atraumatic FACE & SINUS: normal facial exam and face symmetric NOSE: Normal external nose present Eye: COMMON NORMALS: Equal, round and reactive pupils present and EOMs intact bilaterally PUPIL: Yes Equal, round and reactive pupils present Neck/C-Spine: GENERAL: Yes trachea midline Chest: CHEST: Yes Symmetrical chest wall rise Resp: COMMON NORMALS: normal respiratory effort, No retractions, No use of accessory muscles and clear to auscultation bilaterally AUSCULTATION: clear to auscultation bilaterally Cardio: COMMON NORMALS: regular rhythm RATE: tachycardic RHYTHM: regular rhythm GI: COMMON NORMALS: Normal to inspection, nondistended, normoactive bowel sounds present Extremity: COMMON NORMALS: no pedal edema Neuro: ADELE COMA SCALE: document GCS findings Adele coma scale eye opening: Spontaneous [place] coma scale verbal response: Orientated [place] coma scale motor response: Obey commands [place] coma scale total score: 15 S ENSORY EXAM: Yes extremities (intact) Psych: COMMON NORMALS: speech normal SPEECH: Yes normal speech Skin: NARRATIVE SKIN EXAM: Cellulitic area to the left axilla, incision site clean. Minimal drainage. No significant streaking. Course 2 Vital Signs: Vital signs: Vital Signs Temperature 98.2 F 09/18/24 23:14 Pulse Rate 20 L 09/19/24 02:49 Respiratory Rate 18 09/19/24 02:49 Blood Pressure 112/68 09/19/24 02:49 Pulse Oximetry 98 09/19/24 02:49 Oxygen Delivery Me thod Room Air 09/19/24 01:00 MDM - Nausea/Vomiting/Diarrhea Medical Decision Making No signs of lymphangitis on exam. White blood cell count is mildly elevated at 14.5. CRP is elevated as well at 115. Lactic acid however is 0.7. Her bicarbonate level is 17. She is given a liter of fluid as well as 900 mg of IV clindamycin. She is feeling improved. She will be placed on scheduled Reglan for nausea. She will continue the Bactrim. To return for continued vomiting, any other worsening symptoms. Lab Data 09/19/24 01:08 09/19/24 01:08 Laboratory Results WBC 14.46 10^3/uL (3.29-11.43) H 09/19/24 01:08 RBC 3.97 10^6/uL (3.85-5.65) 09/19/24 01:08 Hgb 11.30 g/dL (11.27-16.99) 09/19/24 01:08 Hct 33.3 % (36-47) L 09/19/24 01:08 MCV 83.9 fl (85-98) L 09/19/24 01:08 MCH 28.5 pg (27-33) 09/19/24 01:08 MCHC 33.9 g/dL (30-55) 09/19/24 01:08 RDW 15.9 % (12.1-15.1) H 09/19/24 01:08 Plt Count 171 10^3/cmm (157-399) 09/19/24 01:08 MPV 11.4 fL (7.4-10.4) H 09/19/24 01:08 Neut % (Auto) 94.8 % 09/19/24 01:08 Lymph % (Auto) 1.6 % 09/19/24 01:08 [place] % (Auto) 2.6 % 09/19/24 01:08 Eos % (Auto) 0.1 % 09/19/24 01:08 Baso % (Auto) 0.1 % 09/19/24 01:08 Neut # (Auto) 13.72 10^3/uL (1.8-7.7) H 09/19/24 01:08 Lymph # (Auto) 0.2 10^3/uL (0.8-4.8) L 09/19/24 01:08 [place] # (Auto) 0.4 10^3/uL (0.2-0.9) 09/19/24 01:08 Eos # (Auto) 0.0 10^3/uL (0.0-0.8) 09/19/24 01:08 Baso # (Auto) 0.0 10^3/uL (0.0-0.1) 09/19/24 01:08 Nucleated RBC % (auto) 0 % 09/19/24 01:08 Nucleated RBCs # 0.0 /100WBC 09/19/24 01:08 PT 14.90 SECONDS (12.1-14.9) 09/19/24 01:08 INR 1.09 (0.8-1.2) 09/19/24 01:08 APTT 34.4 SECONDS (23.9-36.7) 09/19/24 01:08 Sodium 132 mmol/L (136-145) L 09/19/24 01:08 Potassium 3.5 mmol/L (3.5-5.1) 09/19/24 01:08 Chloride 100 mmol/L (98-107) 09/19/24 01:08 Carbon Dioxide 17 mmol/L (22-29) L 09/19/24 01:08 Anion Gap 18.5 (5-19) 09/19/24 01:08 BUN 4 mg/dL (6-20) L 09/19/24 01:08 Creatinine 0.4 mg/dL (0.5-0.9) L 09/19/24 01:08 GFR Calculation 192.9 mL/min (90-130) H 09/19/24 01:08 Glucose 117 mg/dL (65-115) H 09/19/24 01:08 Calculated Osmolality 272 mOsm/kg (285-295) L 09/19/24 01:08 Lactic Acid 0.7 mmol/L (0.5-2.2) 09/19/24 01:08 Calcium 8.7 mg/dL (8.5-10.5) 09/19/24 01:08 Total Bilirubin 0.4 mg/dL (0.15-1.2) 09/19/24 01:08 AST 15 U/L (0-32) 09/19/24 01:08 ALT 7 U/L (0-33) 09/19/24 01:08 Alkaline Phosphatase 110 U/L (35-105) H 09/19/24 01:08 C-Reactive Protein 115.0 mg/L (0.0-4.9) H 09/19/24 01:08 Total Protein 6.6 g/dL (6.6-8.7) 09/19/24 01:08 Albumin 3.4 g/dL (3.5-5.2) L 09/19/24 01:08 Globulin 3.2 g/dL (1.3-4.6) 09/19/24 01:08 Blood Type Cancelled 09/19/24 01:05 Rho(D) Type Cancelled 09/19/24 01:05 Antibody Screen Cancelled 09/19/24 01:05 No radiology studies performed this visit Discharge Plan Discharge Patient Disposition: Home Clinical Impression: Abscess Clinical Impression: (Ruled Out): History of LEEP (loop electrosurgical excision procedure) of cervix complicating Condition: Stable Prescriptions: New metoclopramide HCl [Reglan] 10 mg tablet 10 mg PO Q6H 7 Days Qty: 28 0RF No Action buspirone 5 mg tablet 5 mg PO BID Qty: 60 0RF enoxaparin [Lovenox] 40 mg/0.4 mL syringe 40 mg SUBCUT Q24H Qty: 4 3RF cephalexin 500 mg tablet 500 mg PO QID 7 Days Qty: 28 0RF sulfamethoxazole-trimethoprim [Bactrim DS] 800-160 mg tablet 1 tab PO BID 10 Days Qty: 20 0RF hydrocodone-acetaminophen 5-325 mg tablet 1 tab PO Q6H PRN (Reason: pain) Qty: 14 0RF Discharge Orders: Discharge ED (Routine); Ordered 09/19/24 Ordered By: Sunny Briceño Referrals: Hieu Garvin MD [Primary Care Provider] - 1-3 days Patient Instructions: Abscess (ED), Abscess Follow-up (ED), Opioid Safety, Pain Management Activity Restrictions/Additional Instructions: Take nausea medication scheduled every 4 hours while awake whether you feel nauseated or not for the first 24 hours, then as needed following that. Continue your antibiotic. Return for problems. See your doctor next week. Coding Level of Care Code ED Solar Energy Systems Engineer for Inessa Munoz
[2024-09-19] MEDS: metoclopramide 5 mg/mL SDV 2 mL 10 MG IVP (01:16)
[2024-09-19] MEDS: sodium chloride 0.9% 1,000 ML 999 ML IV (01:17)
[2024-09-19 01:22] LABS: Basophils % 0.1 %; Eosinophils % 0.1 %; Hematocrit 33.3 % (36-47); Lymphocytes # 0.2 10^3/uL (0.8-4.8); Lymphocytes % 1.6 %; Mean Corpuscular HGB Conc 33.9 g/dL (30-55); Mean Corpuscular Hemoglobin 28.5 pg (27-33); Mean Corpuscular Volume 83.9 fl (85-98); Mean Platelet Volume 11.4 fL (7.4-10.4); Monocytes # 0.4 10^3/uL (0.2-0.9); Monocytes % 2.6 %; Neutrophils # 13.72 10^3/uL (1.8-7.7); Neutrophils % 94.8 %; Nucleated Red Blood Cells % 0 %; Platelet Count 171 10^3/cmm (157-399); Red Blood Count 3.97 10^6/uL (3.85-5.65); Red Cell Distribution Width 15.9 % (12.1-15.1); White Blood Count 14.46 10^3/uL (3.29-11.43)
[2024-09-19 01:35] LABS: INR 1.09 (0.8-1.2); Partial Thromboplastin Time 34.4 SECONDS (23.9-36.7)
[2024-09-19 01:46] LABS: Alanine Aminotransferase 7 U/L (0-33); Albumin Level 3.4 g/dL (3.5-5.2); Alkaline Phosphatase 110 U/L (35-105); Anion Gap 18.5 (5-19); Aspartate Amino Transferase 15 U/L (0-32); Blood Urea Nitrogen 4 mg/dL (6-20); Calcium 8.7 mg/dL (8.5-10.5); Carbon Dioxide 17 mmol/L (22-29); Chloride 100 mmol/L (98-107); Creatinine Clr Calc Pharmacy 239.9729; Globulin 3.2 g/dL (1.3-4.6); Glomerular Filtration Rate 192.9 mL/min (90-130); Glucose 117 mg/dL (65-115); Osmolality Calculated 272 mOsm/kg (285-295); Potassium 3.5 mmol/L (3.5-5.1); Sodium 132 mmol/L (136-145); Total Bilirubin 0.4 mg/dL (0.15-1.2); Total Protein 6.6 g/dL (6.6-8.7)
[2024-09-19 01:47] LABS: Lactic Sepsis W/Reflex 0.7 mmol/L (0.5-2.2)
[2024-09-19] MEDS: clindamycin 900 MG/50 ML PREMIX 100 MG IV (02:13)
== END 2024-09-19 02:50 | disposition home or self-care (01) ==
PROVIDERS: Emergency Provider Emergency Medicine; PCP Family Medicine
DX: Z03.89 Encounter for observation for other suspected diseases and conditions ruled out (principal)
CPT/HCPCS: 36415; 80053; 83605; 85025; 85610; 85730; 86140; 87040; 93005; 96374; 96375; 99284; J2765; J3490; J7030

== ENCOUNTER 2024-09-23 10:29 | Emergency (ER) | payer BC, MEDICAID, SELFPAY ==
[2024-09-23 10:48] VITALS: BP 145/78; PULSE 88; RESP 16; TEMP 36.8; O2SAT 98; BMI 28.2
--- NOTE | 2024-09-23 10:58 | US_ITS ---
WS: [id number] ULTRASOUND OB FOCUSED HISTORY: Vaginal bleeding in COMPARISON: 09/15/2024 Single intrauterine gestation is identified. Normal amount of amniotic fluid. heart rate at 141 BPM. Placenta noted anterior and along the lower uterine segment and low lying. The relationship between t he distal placenta and the cervix is difficult on transabdominal imaging only. The cervix appears peng sed measuring approximately 3 cm which is similar to the prior study. No significant surgical insuffi ciency is identified. No abruption. Mild heterogeneity within the placenta with no increased vascular ity. US/US OB limited [id number] IMPRESSION: 1. Normal amniotic fluid. 2. Normal heart rate. 3. Low-lying placenta. 4. Cervix measures 3.0 cm in length which is similar to the prior study. If th ere is continued vaginal bleeding or concern for cervical insufficiency transva ginal imaging should be obtained. Notified Sarahi Tobias MD at 09/23/2024 11:55 AM.
--- NOTE | 2024-09-23 11:06 | ED_ITS ---
HPI - 2 General: Chief complaint: Vaginal Bleeding Stated complaint: 17 wk preg/spotting Time Seen by Provider: 09/23/24 10:57 History of Present Illness: 24-year-old female who is approximately 18 weeks who presents emergency room with vaginal bleeding. She has had some mild vaginal bleeding today. No cramping. No contractions. She says early in the she had a subchorionic hemorrhage and some bleeding but that had resolved. She called Dr. Matos who is her OB who told her to come to the emergency room for an ultrasound because the tech was out of the clinic today. Blood type is A+. Related Data Home Medications Medication Instructions Recorded Confirmed vit no.133-ferrous 1 tab PO DAILY 09/23/24 09/23/24 fumarate 28 mg-folic acid 800 mcg tablet () Previous Rx's Medication Instructions Recorded buspirone 5 mg tablet 5 mg PO BID #60 tabs 08/11/24 enoxaparin 40 mg/0.4 mL 40 mg (0.4 mL) SUBCUT Q24H #4 mL 08/11/24 subcutaneous syringe (Lovenox) hydrocodone 5 mg-acetaminophen 325 1 tab PO Q6H PRN pain #14 tabs 09/18/24 mg tablet sulfamethoxazole 800 1 tab PO BID 10 days #20 tabs 09/18/24 mg-trimethoprim 160 mg tablet (Bactrim DS) metoclopramide HCl 10 mg tablet 10 mg PO Q6H 7 days #28 tabs 09/19/24 (Reglan) Allergies Allergy/AdvReac Type Severity Reaction Status Date / Time amoxicillin Allergy ALGY-Hives Verified 09/17/24 15:16 doxycycline Allergy ALGY-Hives Verified 09/17/24 15:16 ketorolac Allergy ADR-Nausea Verified 09/17/24 15:16 ondansetron Allergy ALGY-Hives Verified 09/17/24 15:16 Penicillins Allergy ALGY-Hives Verified 09/17/24 15:16 red dye Allergy ALGY-Anaphy Verified 09/17/24 15:16 laxis Review of Systems 2 Narrative: Constitutional symptoms: Negative except as documented in HPI. Skin symptoms: Negative except as documented in HPI. Eye symptoms: Negative except as documented in HPI. ENMT symptoms: Negative except as documented in HPI. Respiratory symptoms: Negative except as documented in HPI. Cardiovascular symptoms: Negative except as documented in HPI. Gastrointestinal symptoms: Negative except as documented in HPI. Genitourinary symptoms: Negative except as documented in HPI. Musculoskeletal symptoms: Negative except as documented in HPI. Neurologic symptoms: Negative except as documented in HPI. Psychiatric symptoms: Negative except as documented in HPI. Endocrine symptoms: Negative except as documented in HPI. [facility] ED 2 PFS: Medical History Protein S deficiency (~2018) treated with lovenox in her pregnancies Abnormal uterine bleeding (AUB) Generalized anxiety disorder with panic attacks Major depressive disorder, recurrent, severe with psychotic symptoms Post-traumatic stress disorder, chronic Surgical History H/O dilation and curettage (~08/28/23) with hysteroscopy performed by Rom at [facility] for AUB-- benign polyp, negative for hyperplasia, atypia or malignancy. Complicated by uterine perforation. S/P LEEP (status post loop electrosurgical excision procedure) (~08/28/23) 3 LEEP procedures in total. Her last LEEP was 03/[address] Cueto. KARLA-1 pathology Family History Denies family history of Colon cancer Ovarian cancer Diabetes Heart disease Breast cancer Hypertension Uterine cancer Thyroid disease Stroke Social History Smoking and tobacco/nicotine status: never used tobacco/nicotine Alcohol intake: never Substance/Drug Use: current Substance/Drug use frequency: daily Other substance/drug use details: smoking Current occupational status: unemployed Physical Exam 2 Narrative: EXAM NARRATIVE: General: Alert, no acute distress. Skin: Warm, dry. Head: Normocephalic, atraumatic. Neck: Supple, trachea midline. Eye: Extraocular movements are intact. Ears, nose, mouth and throat: mucosa moist. Cardiovascular: Regular, Normal peripheral perfusion. Respiratory: Lungs are clear to auscultation, respirations are non-labored, breath sounds are equal, Symmetrical chest wall expansion. Gastrointestinal: Soft, Nontender, Non distended Musculoskeletal: Normal ROM, no deformity. Neurological: Alert and oriented, No focal neurological deficit observed. Psychiatric: Cooperative, appropriate mood & affect. Course 2 Vital Signs: Vital signs: Vital Signs Temperature 98.3 F 09/23/24 10:48 Pulse Rate 75 09/23/24 11:58 Respiratory Rate 16 09/23/24 11:58 Blood Pressure 119/64 09/23/24 11:58 Pulse Oximetry 99 09/23/24 11:58 Oxygen Delivery Me thod Room Air 09/23/24 11:58 MDM - OB/Uterine Contractions Medical Decision Making Medical decision making: Differential diagnosis including but not limited to and based on the above HPI, review of systems and physical exam: for patient in early with vaginal bleeding and abdominal pain: Spontaneous , threatened . Urinary tract infection. ectopic . Orders placed to evaluate differential diagnosis based on the above differential, HPI and physical exam Lab Review: Laboratory results were reviewed and interpreted by myself the emergency room physician. Lab results are fairly unremarkable. No leukocytosis. Hemoglobin is 10.8. BUN and creatinine are normal at 6 and 0.4. I reviewed the patient's medical record. Obstetric ultrasound shows normal amniotic fluid. Normal heart rate. Low-lying placenta. This was reviewed and interpreted by myself the emergency room physician. I also reviewed the radiology report. Reexamination: Patient remained stable. No increased work of breathing. No altered mental status. No focal motor deficits. Assessment and plan: Vaginal bleeding in - Discharged home - Discussed plan with patient. Answered any questions. - Evaluation and treatment of this problem were appropriate in the emergency setting. Lab Data 09/23/24 11:11 09/23/24 11:11 Radiology Impressions Obstetrics Ultrasound 09/23/24 10:58 IMPRESSION: 1. Normal amniotic fluid. 2. Normal heart rate. 3. Low-lying placenta. 4. Cervix measures 3.0 cm in length which is similar to the prior study. If there is continued vaginal bleeding or concern for cervical insufficiency transvaginal imaging should be obtained. Notified Sarahi Tobias MD at 09/23/2024 11:55 AM. Laboratory Results WBC 7.62 10^3/uL (3.29-11.43) 09/23/24 11:11 RBC 3.87 10^6/uL (3.85-5.65) 09/23/24 11:11 Hgb 10.80 g/dL (11.27-16.99) L 09/23/24 11:11 Hct 32.1 % (36-47) L 09/23/24 11:11 MCV 82.9 fl (85-98) L 09/23/24 11:11 MCH 27.9 pg (27-33) 09/23/24 11:11 MCHC 33.6 g/dL (30-55) 09/23/24 11:11 RDW 15.7 % (12.1-15.1) H 09/23/24 11:11 Plt Count 225 10^3/cmm (157-399) 09/23/24 11:11 MPV 10.6 fL (7.4-10.4) H 09/23/24 11:11 Neut % (Auto) 70.9 % 09/23/24 11:11 Lymph % (Auto) 22.2 % 09/23/24 11:11 [place] % (Auto) 4.9 % 09/23/24 11:11 Eos % (Auto) 0.7 % 09/23/24 11:11 Baso % (Auto) 0.3 % 09/23/24 11:11 Neut # (Auto) 5.41 10^3/uL (1.8-7.7) 09/23/24 11:11 Lymph # (Auto) 1.7 10^3/uL (0.8-4.8) 09/23/24 11:11 [place] # (Auto) 0.4 10^3/uL (0.2-0.9) 09/23/24 11:11 Eos # (Auto) 0.1 10^3/uL (0.0-0.8) 09/23/24 11:11 Baso # (Auto) 0.0 10^3/uL (0.0-0.1) 09/23/24 11:11 Nucleated RBC % (auto) 0 % 09/23/24 11:11 Nucleated RBCs # 0.0 /100WBC 09/23/24 11:11 Sodium 134 mmol/L (136-145) L 09/23/24 11:11 Potassium 4.1 mmol/L (3.5-5.1) 09/23/24 11:11 Chloride 102 mmol/L (98-107) 09/23/24 11:11 Carbon Dioxide 19 mmol/L (22-29) L 09/23/24 11:11 Anion Gap 17.1 (5-19) 09/23/24 11:11 BUN 6 mg/dL (6-20) 09/23/24 11:11 Creatinine 0.4 mg/dL (0.5-0.9) L 09/23/24 11:11 GFR Calculation 192.9 mL/min (90-130) H 09/23/24 11:11 Glucose 90 mg/dL (65-115) 09/23/24 11:11 Calculated Osmolality 275 mOsm/kg (285-295) L 09/23/24 11:11 Calcium 8.6 mg/dL (8.5-10.5) 09/23/24 11:11 Total Bilirubin 0.2 mg/dL (0.15-1.2) 09/23/24 11:11 AST 15 U/L (0-32) 09/23/24 11:11 ALT 10 U/L (0-33) 09/23/24 11:11 Alkaline Phosphatase 112 U/L (35-105) H 09/23/24 11:11 Total Protein 6.1 g/dL (6.6-8.7) L 09/23/24 11:11 Albumin 3.2 g/dL (3.5-5.2) L 09/23/24 11:11 Globulin 2.9 g/dL (1.3-4.6) 09/23/24 11:11 Ser , Semi-Qnt 18155.00 mIU/mL 09/23/24 11:11 Urine Color Yellow (Yellow) 09/23/24 11:55 Urine Appearance Clear (CLEAR) 09/23/24 11:55 Urine pH 6.5 (5-7) 09/23/24 11:55 Ur Specific [place] 1.024 (1.005-1.030) 09/23/24 11:55 Urine Protein Trace (Negative) A 09/23/24 11:55 Urine Glucose (UA) Negative (Normal) 09/23/24 11:55 Urine Ketones Negative (Negative) 09/23/24 11:55 Urine Blood 2+ (Negative) A 09/23/24 11:55 Urine Nitrate Negative (Negative) 09/23/24 11:55 Urine Bilirubin Negative (Negative) 09/23/24 11:55 Urine Urobilinogen 1.0 mg/dL (Negative) 09/23/24 11:55 Ur Leukocyte Esterase 1+ (Negative) A 09/23/24 11:55 Urine RBC 3-5 /hpf (0-2) 09/23/24 11:55 Urine WBC 6-10 /hpf (0-5) 09/23/24 11:55 Ur Squamous Epith Cells 6-10 /hpf (0-5) 09/23/24 11:55 Amorphous Sediment Not Reportable 09/23/24 11:55 Urine Bacteria None seen /hpf (NONE) 09/23/24 11:55 Hyaline Casts 0.40 /lpf 09/23/24 11:55 All radiology interpretation(s) finalized by discharge Discharge Plan Discharge Patient Disposition: Home Clinical Impression: Vaginal bleeding in Condition: Stable Prescriptions: No Action buspirone 5 mg tablet 5 mg PO BID Qty: 60 0RF enoxaparin [Lovenox] 40 mg/0.4 mL syringe 40 mg SUBCUT Q24H Qty: 4 3RF sulfamethoxazole-trimethoprim [Bactrim DS] 800-160 mg tablet 1 tab PO BID 10 Days Qty: 20 0RF hydrocodone-acetaminophen 5-325 mg tablet 1 tab PO Q6H PRN (Reason: pain) Qty: 14 0RF metoclopramide HCl [Reglan] 10 mg tablet 10 mg PO Q6H 7 Days Qty: 28 0RF 28-800 mg-mcg Tablet 1 tab PO DAILY Discharge Orders: Discharge ED (Routine); Ordered 09/23/24 Ordered By: Sarahi Tobias Referrals: Sigifredo Matos MD [Physician] - 1-3 days (Please follow with Dr. Matos as instructed.) Hieu Garvin MD [Primary Care Provider] - Discharge Diet: Usual diet Discharge Activity: Increase activity as tolerated Patient Instructions: Threatened Miscarriage (ED), Opioid Safety, Pain Management Activity Restrictions/Additional Instructions: Thank you for choosing [facility] for your healthcare needs today. Please realize this is an emergency room and that we are providing you with a medical screening exam and this may not be complete and all inclusive of all the testing and or work up that you may need to determine your ailment or severity of your illness. You have been screened and evaluated and felt safe for discharge. Health conditions do change or evolve sometimes and as such it is important that you follow up with your Primary Doctor to be re checked, 3-5 days is a general good time frame for follow up. You are always welcome to return to the ED for re assessment if your symptoms are worsening or you have new concerns Coding Level of Care Code ED Dining Room Hostess for Inessa Munoz
[2024-09-23 11:20] LABS: Basophils % 0.3 %; Eosinophils # 0.1 10^3/uL (0.0-0.8); Eosinophils % 0.7 %; Hematocrit 32.1 % (36-47); Lymphocytes # 1.7 10^3/uL (0.8-4.8); Lymphocytes % 22.2 %; Mean Corpuscular HGB Conc 33.6 g/dL (30-55); Mean Corpuscular Hemoglobin 27.9 pg (27-33); Mean Corpuscular Volume 82.9 fl (85-98); Mean Platelet Volume 10.6 fL (7.4-10.4); Monocytes # 0.4 10^3/uL (0.2-0.9); Monocytes % 4.9 %; Neutrophils # 5.41 10^3/uL (1.8-7.7); Neutrophils % 70.9 %; Nucleated Red Blood Cells % 0 %; Platelet Count 225 10^3/cmm (157-399); Red Blood Count 3.87 10^6/uL (3.85-5.65); Red Cell Distribution Width 15.7 % (12.1-15.1); White Blood Count 7.62 10^3/uL (3.29-11.43)
[2024-09-23 11:53] LABS: Alanine Aminotransferase 10 U/L (0-33); Albumin Level 3.2 g/dL (3.5-5.2); Alkaline Phosphatase 112 U/L (35-105); Anion Gap 17.1 (5-19); Aspartate Amino Transferase 15 U/L (0-32); Blood Urea Nitrogen 6 mg/dL (6-20); Calcium 8.6 mg/dL (8.5-10.5); Carbon Dioxide 19 mmol/L (22-29); Chloride 102 mmol/L (98-107); Creatinine Clr Calc Pharmacy 226.5428; Globulin 2.9 g/dL (1.3-4.6); Glomerular Filtration Rate 192.9 mL/min (90-130); Glucose 90 mg/dL (65-115); Osmolality Calculated 275 mOsm/kg (285-295); Potassium 4.1 mmol/L (3.5-5.1); Sodium 134 mmol/L (136-145); Total Bilirubin 0.2 mg/dL (0.15-1.2); Total Protein 6.1 g/dL (6.6-8.7)
[2024-09-23 11:58] VITALS: BP 119/64; PULSE 75; RESP 16; O2SAT 99
[2024-09-23 12:04] LABS: Bilirubin Urine Negative (Negative); Blood Urine 2+ (Negative); Glucose Urine UA Negative (Normal); Ketones Urine Negative (Negative); Leukocyte Esterase Urine 1+ (Negative); Nitrate Urine Negative (Negative); Protein Urine Trace (Negative); Specific Gravity, Urine 1.024 (1.005-1.030); Urine Appearance Clear (CLEAR); Urine Color Yellow (Yellow); pH Urine 6.5 (5-7)
[2024-09-23 12:09] LABS: Bacteria Urine None Seen /hpf
[2024-09-23 12:16] LABS: Add Urine Culture? Yes
[2024-09-23 12:50] VITALS: BP 126/72; PULSE 80; O2SAT 97
== END 2024-09-23 12:51 | disposition home or self-care (01) ==
PROVIDERS: Emergency Provider Emergency Medicine; PCP Family Medicine
DX: O20.9 Hemorrhage in early pregnancy, unspecified (principal); Z3A.18 18 weeks gestation of pregnancy
CPT/HCPCS: 36415; 76815; 80053; 81001; 82105; 84702; 85025; 87086; 99284

== ENCOUNTER → 2024-09-28 11:20 | Outpatient (BNVA) | payer BC, MEDICAID, SELFPAY | PROVIDERS: PCP Family Medicine; Visit Provider Obstetrics & Gynecology | DX: Z36.9 Encounter for antenatal screening, unspecified (principal) | CPT/HCPCS: 76817 ==

== ENCOUNTER → 2024-10-18 11:29 | Outpatient (BNVA) | payer MEDICAID, SELFPAY | PROVIDERS: PCP Family Medicine; Visit Provider Obstetrics & Gynecology | DX: O09.899 Supervision of other high risk pregnancies, unspecified trimester (principal) | CPT/HCPCS: 84315 ==

== ENCOUNTER → 2024-11-01 11:19 | Outpatient (BNVA) | payer MEDICAID, SELFPAY | PROVIDERS: PCP Family Medicine; Visit Provider Obstetrics & Gynecology | DX: O09.899 Supervision of other high risk pregnancies, unspecified trimester (principal) | CPT/HCPCS: 84315 ==

== ENCOUNTER → 2024-11-10 14:53 | Outpatient (BNVA) | payer MEDICAID, SELFPAY | PROVIDERS: PCP Family Medicine; Visit Provider Nurse Practitioner Women's Health | DX: Z36.9 Encounter for antenatal screening, unspecified (principal); O09.899 Supervision of other high risk pregnancies, unspecified trimester | CPT/HCPCS: 76817; 82950; 84315 ==

== ENCOUNTER 2024-11-14 13:28 | Outpatient (CLI) | payer MEDICAID, SELFPAY ==
[2024-11-14] VITALS (12 sets, daily range): BP systolic 112–127; BP diastolic 56–70; PULSE 86–114; BMI 33.2
[2024-11-14] MEDS: terbutaline 1 mg/mL INJ 0.25 MG SUBCUT (14:48)
[2024-11-14 15:09] LABS: Bilirubin Urine Negative (Negative); Blood Urine Negative (Negative); Glucose Urine UA Negative (Normal); Ketones Urine Negative (Negative); Leukocyte Esterase Urine Negative (Negative); Nitrate Urine Negative (Negative); Protein Urine Negative (Negative); Specific Gravity, Urine 1.019 (1.005-1.030); Urine Appearance Clear (CLEAR); Urine Color Yellow (Yellow); Urobilinogen Urine 0.2 mg/dL (Negative); pH Urine 6.5 (5-7)
[2024-11-14 15:12] LABS: Add Urine Microscopic? YES; Bacteria Urine None Seen /hpf; Hyaline Casts Urine 1.21 /lpf; RBC Urine 0-2 /hpf (0-2); WBC Urine 0-5 /hpf (0-5)
[2024-11-14] MEDS: betamethasone susp 6 mg/mL 1 mL (per mL) 12 MG IM (16:00)
--- NOTE | 2024-11-14 16:34 | PM.OBTRLD ---
OB L&D Triage Visit Information: Date of evaluation: 11/14/24 Comments/Additional reason(s) for visit: 24-year-old female G6, P3 at 24.5 weeks gestation with JENNA 03/01/2025 seen on labor and delivery triage for complaints of contractions onset last night. Patient complains of pressure in her abdomen and vaginal area. She denies vaginal bleeding or leakage of fluid. She admits to good movement. Patient has history of multiple LEEP procedures and has documented cervical shortening on 11/20/2024 of 1.5 cm. Patient had labor with her second and delivered at 34 weeks. Patient was observed on EFM with heart tones in the 130s, irregular contractions noted. Difficult to fern picker on the external monitor but occasionally was palpated and palpated is mild. Cervix by nursing staff 1 cm. Patient was treated with an IV LR bolus of 500 mL followed by 150 mL every hour. Was also treated with terbutaline 0.25 mg subcu and before discharge Procardia 30 mg ER. Patient was given the first dose of betamethasone 12 mg IM and instructed to return to labor and delivery on 11/15/2024 for his second dose. Discussion of labor and delivery, patient advised against sexual intercourse. Encouraged to increase fluid intake, home rest and to keep her clinic appointment on 11/17/2024. If uterine contractions recur with increase intensity patient is to return to labor and delivery. Also if leakage of fluid or vaginal bleeding occurs she is to return to labor and delivery, patient verbalizes understanding... Evaluation: Baseline heart rate: 130 Laboratory results: Laboratory Tests 11/14/24 15:00 Urine Color Yellow Urine Appearance Clear Urine pH 6.5 Ur Specific Gravit y 1.019 Urine Protein Negative Urine Glucose (UA) Negative Urine Ketones Negative Urine Blood Negative Urine Nitrate Negative Urine Bilirubin Negative Urine Urobilinogen 0.2 Ur Leukocyte Rosanna ase Negative Urine RBC 0-2 Urine WBC 0-5 Ur Squamous Epith Cells 11-20 H Amorphous Sediment Not Reportable Urine Bacteria None seen Hyaline Casts 1.21 Vital signs: Vital Signs - 24 hr 11/14/24 13:43 11/14/24 13:58 11/14/24 14:13 Pulse Rate 114 H 95 86 Blood Pressure 116/64 112/58 113/58 11/14/24 14:28 11/14/24 15:00 11/14/24 15:13 Pulse Rate 90 96 93 Blood Pressure 114/61 116/56 126/61 11/14/24 15:28 11/14/24 15:43 11/14/24 15:58 Pulse Rate 99 99 94 Blood Pressure 127/60 120/57 124/59 11/14/24 16:13 11/14/24 16:28 Pulse Rate 98 105 H Blood Pressure 125/67 127/70 Care JENNA Calculator Estimated Delivery Date Method Current WG Current Estimate 03/01/25 Ultrasound #1 24w 5d Specific Issues/Plans HX LEEP X 3 (recently 08/2023) --cx length at 24,25,26,28 (most recent 1.54cm) KARLA 1 PROTEIN S DEFICIENCY-- on lovenox; needs testing outside of MARIJUANA USE (stopped at 22 wks) NICOTINE USE- has not quit (24wks) ANXIETY /DEPRESSION <del>LOW</del> <del>LYING</del> <del>PLACENTA</del> <del>--</del> <del>resolved</del> <del>at</del> <del>20</del> <del>wks--</del> <del>now</del> <del>anterior</del> SUBCHORION BLEED - RESOLVED Final Diagnosis Final Diagnosis (1) 24 weeks gestation of : Plan: DC to home, on pelvic rest, increase fluids. Patient to return to labor and delivery if leakage of fluid, vaginal bleeding or return of uterine contractions Status: Acute Code(s): Z3A.24 - 24 weeks gestation of (2) contractions: Status: Acute Code(s): O47.00 - False labor before 37 completed weeks of gestation, unspecified trimester (3) Supervision of other high-risk : Status: Acute Code(s): O09.899 - Supervision of other high risk pregnancies, unspecified trimester (4) History of LEEP (loop electrosurgical excision procedure) of cervix complicating : Status: Acute Qualifiers: Trimester: first trimester Qualified Code(s): O34.41 - Maternal care for other abnormalities of cervix, first trimester; Z98.890 - Other specified postprocedural states Code(s): O34.40 - Maternal care for other abnormalities of cervix, unspecified trimester; Z98.890 - Other specified postprocedural states (5) Protein S deficiency: Status: Acute Code(s): D68.59 - Other primary thrombophilia Other Information/Follow up Follow-up at clinic on 11/17/2024 as scheduled. Patient to follow-up on labor and delivery 11/15/2024 approximately 3:00 PM for #2 steroid injection Coding Level of Care Code Acute Code for Chg Fwd Diagnoses 24 weeks gestation of Z3A.24 contractions O47.00 Supervision of other high-risk O09.899 History of loop electrosurgical excision procedure (LEEP) of cervix affecting in first trimester O34.41; Z98.890 Trimester: first trimester Protein S deficiency D68.59
--- NOTE | 2024-11-14 17:04 | PC.NURSE ---
11/14/24 1654: Patient instructed to return tomorrow at 1600 for second dose of betamethasone.
== END 2024-11-14 16:59 | disposition home or self-care (01) ==
LOC: OPOB 13:28 → OBGYN 13:29
PROVIDERS: PCP Family Medicine; Visit Provider Obstetrics & Gynecology
DX: O47.00 False labor before 37 completed weeks of gestation, unspecified trimester (principal); O34.42 Maternal care for other abnormalities of cervix, second trimester; Z98.890 Other specified postprocedural states; Z3A.24 24 weeks gestation of pregnancy; D68.59 Other primary thrombophilia
CPT/HCPCS: 59025; 81001; 96372; 99211; J0702; J3105

== ENCOUNTER 2024-11-15 16:04 | Outpatient (CLI) | payer MEDICAID, SELFPAY ==
[2024-11-15] MEDS: betamethasone susp 6 mg/mL 1 mL (per mL) 12 MG IM (16:25)
[2024-11-15 16:46] VITALS: BMI 32.3
== END 2024-11-15 16:28 | disposition home or self-care (01) ==
LOC: OPOB 16:08 → OBGYN 16:09
PROVIDERS: PCP Family Medicine; Visit Provider Obstetrics & Gynecology
DX: O26.899 Other specified pregnancy related conditions, unspecified trimester (principal); Z3A.00 Weeks of gestation of pregnancy not specified
CPT/HCPCS: 59025; 96372; 99211; J0702

== ENCOUNTER 2024-11-16 00:36 | Outpatient (CLI) | payer MEDICAID, SELFPAY ==
[2024-11-16] VITALS (15 sets, daily range): BP systolic 121–136; BP diastolic 56–84; PULSE 61–115; RESP 16; TEMP 36.9; O2SAT 98; BMI 32.9
--- NOTE | 2024-11-16 01:52 | PC.NURSE ---
Addendum entered by Mile Baker RN 11/16/24 01:56: Rn at bedside with Dr. Cueto. Speculum exam preformed by Dr. Cueto. Dr. Cueto reports to this nurse that the patients cervix is short but closed. Also noted that the patient has a bulging lower segment of the uterus. Original Note: Rn at bedside with Dr. Cueto. Speculum exam preformed by Dr. Cueto
[2024-11-16] MEDS: NIFEdipine 10 mg Capsule PO (02:31)
--- NOTE | 2024-11-16 02:34 | PC.NURSE ---
This nurse attempted to call [facility] ambulance transport at [phone]. Call was answered. [facility] employee stated he would call back shortly.
--- NOTE | 2024-11-16 02:45 | PM.OBGYPN ---
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 A2 EDC March 01, 2025 At 25 w 0 d Followed this for h/o protein S deficiency on Lovenox 40 mg daily h/o LEEP procedures shortened cervix presented to L&D c/o new onset of pelvic pressure and intermittent shooting pelvic pains no bleeding + one episode of fluid leakage + pelvic cramps Patient had received two doses of Cel[place] Labor: Amniotic Membrane Status: Intact Vitals/I&O/Wt Last Vital Signs Pulse 96 11/16/24 03:40 Resp 16 11/16/24 01:01 BP 128/64 11/16/24 03:40 Weight last 48 hrs Weight 204 lb Physical Exam Narrative: General comfortable VS normal Abd: soft, nontender Vulva: normal Vagina: normal. No fluid Cervix: fingertip Palpably completely effaced + bulging lower uterine segment External monitor: no uterine contractions heart tracing good variability A&P Assessment and plan (1) Pelvic pressure in : 25 w 0 d c/o pelvic pressure shortened cervix found to have an effaced cervix with a bulging lower uterine segment plan transfer to [facility] for further evaluation re possible labor (2) Protein S deficiency: PDMP PDMP Reviewed: Not Reviewed Attestations Medical Necessity Statement*: patient at 25 w 0 d with possible labor Coding Level of Care Code Acute Code for Chg Fwd Diagnoses Pelvic pressure in O26.899; R10.2 Protein S deficiency D68.59 Time Spent (min) 60
--- NOTE | 2024-11-16 03:18 | PC.NURSE ---
Report called to Deborah Marte RN at [place], [place] at [phone]
--- NOTE | 2024-11-16 03:26 | PC.NURSE ---
This Rn made attempt to call [facility] at this time 0326 due to being 1 hr since last attempt. Lenard at [facility] reported he would call back in a few minutes.
--- NOTE | 2024-11-16 03:31 | PC.NURSE ---
This RN gave Report to Lenard at [facility] at this time 0126. Lenard reports he will call back soon with eta
== END 2024-11-16 04:12 | disposition intermediate care facility (04) ==
LOC: OPOB 00:37 → OBGYN 00:37
PROVIDERS: PCP Family Medicine; Visit Provider Obstetrics & Gynecology
DX: O26.899 Other specified pregnancy related conditions, unspecified trimester (principal); Z3A.00 Weeks of gestation of pregnancy not specified; R10.2 Pelvic and perineal pain; D68.59 Other primary thrombophilia
CPT/HCPCS: 99211

== ENCOUNTER 2024-12-01 12:00 | Outpatient (CLI) | payer MEDICAID, SELFPAY ==
[2024-12-01] VITALS (12 sets, daily range): BP systolic 116–132; BP diastolic 65–79; PULSE 82–99; RESP 17; O2SAT 98; BMI 31.7
[2024-12-01 12:43] LABS: Bilirubin Urine Negative (Negative); Blood Urine 1+ (Negative); Glucose Urine UA Negative (Normal); Ketones Urine Trace (Negative); Leukocyte Esterase Urine 1+ (Negative); Nitrate Urine Negative (Negative); Protein Urine Trace (Negative); Urine Appearance Clear (CLEAR); Urine Color Yellow (Yellow); pH Urine 6.5 (5-7)
[2024-12-01 12:52] LABS: Bacteria Urine Trace /hpf; Hyaline Casts Urine 1.21 /lpf; WBC Urine 21-50 /hpf (0-5)
[2024-12-01 13:03] LABS: Add Urine Culture? Yes
[2024-12-01] MEDS: NIFEdipine ER (24 hr) 30 mg Tablet PO (14:17)
--- NOTE | 2024-12-02 09:50 | PC.NURSE ---
THIS DISC RULER OPERATOR RECEIVED A CALL FROM PATIENT AND SHE STATED THAT SHE HAD CALLED [facility] AND THEY HADN/T RECEIVED A SCRIPT YET. THIS DISC RULER OPERATOR CALLED DR. VARGAS AND CONFIRMED SCRIPT AND THEN I CALLED PROCARDIA XL 30MG PO BID DISPENSE 60 TALBETS NO REFILLS AT THIS TIME. TALKED WITH MARIA ESTHER (I BELIEVE) AT [facility]. CALLED PATIENT BACK AND TOLD HER THAT I JUST CALLED IT IN FOR HER.
== END 2024-12-01 15:15 | disposition home or self-care (01) ==
LOC: OPOB 12:02 → OBGYN 12:03
PROVIDERS: PCP Family Medicine; Visit Provider Obstetrics & Gynecology
DX: O26.899 Other specified pregnancy related conditions, unspecified trimester (principal); R10.9 Unspecified abdominal pain; Z3A.00 Weeks of gestation of pregnancy not specified
CPT/HCPCS: 81001; 87086; 99211; J9999

== ENCOUNTER → 2024-12-09 08:24 | Outpatient (BNVA) | payer MEDICAID, SELFPAY | PROVIDERS: PCP Family Medicine; Visit Provider Nurse Practitioner Women's Health | DX: O09.899 Supervision of other high risk pregnancies, unspecified trimester (principal) | CPT/HCPCS: 84315; 85025 ==

== ENCOUNTER 2024-12-14 21:35 | Outpatient (CLI) | payer MEDICAID, SELFPAY ==
[2024-12-14] VITALS (14 sets, daily range): BP systolic 112–135; BP diastolic 70–78; PULSE 83–114; TEMP 35.9; O2SAT 98–99; BMI 32.1
[2024-12-14] MEDS: NIFEdipine 10 mg Capsule PO (23:20)
[2024-12-15] VITALS (24 sets, daily range): BP systolic 95–138; BP diastolic 53–78; PULSE 70–90; RESP 16; TEMP 36; O2SAT 98
--- NOTE | 2024-12-15 07:00 | USR_ITS ---
PROCEDURE INFORMATION: Exam: US After First Trimester, Transabdominal and US , Transvaginal Exam date and time: 12/15/2024 3:08 AM Age: 24 years old Clinical indication: Lmp or gestational age (in weeks): 29w 1 d by lmp; Antepartum complications; ; G6-p3-a2-l3 presenting with pre-term labor. ; Additional info: Rule out labor LABS AND CLINICAL REPORTS: Last menstrual period start date: 03/25/2024 Gestational age (Established): 29 w 1 d Estimated due date (Established): 03/01/2025 TECHNIQUE: Imaging protocol: Real-time transabdominal obstetrical ultrasound of the maternal pelvis and a second or third trimester with image documentation. Transvaginal imaging was used for better evaluation of the fetus, adnexa, and/or cervix. COMPARISON: US OB transvaginal [id number] 11/10/2024 2:56 PM FINDINGS: Single living fetus in cephalic position. Anterior placenta. No visible placental abnormality on the provided images. Amniotic fluid volume appears within normal limits for gestation, RICK 18.0 cm. Cervical length evaluated with endovaginal scanning measures 1.3-1.8 cm. This appears similar to the prior exam. There appears to be some funneling of the internal os. BPD: , 7.6 cm. , 30 weeks, 4 days HC: , 28.3 cm. , 31 weeks, 1 day AC: , 25.4 cm. , 29 weeks, 4 days FL: , 6.1 cm. , 31 weeks, 5 days Composite age: 30 weeks, 5 days. Estimated weight: 1585 grams, (3 lb 8 oz). heart activity documented by the technologist, 114 bpm. Complete/detailed evaluation of anatomy was not performed/possible at this time. Followup/complete evaluation of anatomy recommended, if not already performed, and as clinically appropriate. No visible maternal adnexal abnormality. The urinary bladder was not completely evaluated/imaged at this time. Endovaginal scanning provided better visualization/evaluation of the cervix, as discussed above. US/US OB limited [id number] IMPRESSION: 1. Single living fetus, composite age: 30 weeks, 5 days. 2. Amniotic fluid volume appears within normal limits for gestation, RICK 18.0 cm. 3. Anterior placenta. 4. Continued cervical shortening, details above. 5. Other details discussed above.
== END 2024-12-15 09:15 | disposition home or self-care (01) ==
LOC: OPOB 21:42 → OBGYN 21:44
PROVIDERS: PCP Family Medicine; Visit Provider Obstetrics & Gynecology
DX: O26.899 Other specified pregnancy related conditions, unspecified trimester (principal); Z3A.00 Weeks of gestation of pregnancy not specified; R10.9 Unspecified abdominal pain; N89.8 Other specified noninflammatory disorders of vagina
CPT/HCPCS: 59025; 99211; J9999

== ENCOUNTER → 2024-12-20 09:24 | Outpatient (BNVA) | payer MEDICAID, SELFPAY | PROVIDERS: PCP Family Medicine; Visit Provider Obstetrics & Gynecology | DX: O09.899 Supervision of other high risk pregnancies, unspecified trimester (principal) | CPT/HCPCS: 84315 ==

== ENCOUNTER → 2024-12-22 11:13 | Outpatient (BNVA) | payer MEDICAID, SELFPAY | PROVIDERS: PCP Family Medicine; Visit Provider Obstetrics & Gynecology | DX: Z36.9 Encounter for antenatal screening, unspecified (principal) | CPT/HCPCS: 76816 ==

== ENCOUNTER 2024-12-27 11:59 | Outpatient (CLI) | payer MEDICAID, SELFPAY ==
[2024-12-27 11:59] VITALS: BMI 32.8
[2024-12-27 12:10] VITALS: BP 132/79; PULSE 111
[2024-12-27 12:25] VITALS: BP 123/70; PULSE 100
[2024-12-27 12:29] LABS: Bilirubin Urine Negative (Negative); Blood Urine Non-haemolysed trace (Negative); Glucose Urine UA Negative (Normal); Ketones Urine Negative (Negative); Leukocyte Esterase Urine Trace (Negative); Nitrate Urine Negative (Negative); Protein Urine Negative (Negative); Specific Gravity, Urine 1.007 (1.005-1.030); Urine Appearance Clear (CLEAR); Urine Color Yellow (Yellow); Urobilinogen Urine 0.2 mg/dL (Negative)
[2024-12-27 12:34] LABS: Bacteria Urine None Seen /hpf; Squamous Epithelial Cell Urine 0-5 /hpf (0-5); WBC Urine 0-5 /hpf (0-5)
[2024-12-27 12:36] LABS: Actim Prom Negative
[2024-12-27 12:40] VITALS: BP 118/67; PULSE 90
[2024-12-27 12:43] LABS: Add Urine Culture? No
[2024-12-27 12:55] VITALS: BP 113/66; PULSE 96
[2024-12-27 13:10] VITALS: BP 111/64; PULSE 82
[2024-12-27 13:25] VITALS: BP 120/70; PULSE 88
== END 2024-12-27 13:55 | disposition home or self-care (01) ==
LOC: OPOB 12:00 → OBGYN 12:01
PROVIDERS: PCP Family Medicine; Visit Provider Obstetrics & Gynecology
DX: O26.899 Other specified pregnancy related conditions, unspecified trimester (principal); Z3A.00 Weeks of gestation of pregnancy not specified; R25.2 Cramp and spasm
CPT/HCPCS: 59025; 81001; 83986; 84112; 99211

== ENCOUNTER 2025-01-06 10:55 | Outpatient (CLI) | payer MEDICAID, SELFPAY ==
[2025-01-06 11:07] VITALS: BP 122/67; PULSE 104
[2025-01-06 11:15] VITALS: BMI 33.6
[2025-01-06 11:27] VITALS: BP 126/60; PULSE 99
[2025-01-06 11:47] VITALS: BP 104/55; PULSE 88
[2025-01-06 12:07] VITALS: BP 118/56; PULSE 70
[2025-01-06 12:27] VITALS: BP 101/60; PULSE 88
== END 2025-01-06 12:48 | disposition home or self-care (01) ==
LOC: OPOB 10:56 → OBGYN 10:57
PROVIDERS: PCP Family Medicine; Visit Provider Obstetrics & Gynecology
DX: O13.9 Gestational [pregnancy-induced] hypertension without significant proteinuria, unspecified trimester (principal); Z3A.00 Weeks of gestation of pregnancy not specified; R51.9 Headache, unspecified
CPT/HCPCS: 59025; 84315

== ENCOUNTER 2025-01-14 03:21 | Outpatient (CLI) | payer MEDICAID, SELFPAY ==
[2025-01-14] VITALS (15 sets, daily range): BP systolic 120–132; BP diastolic 60–80; PULSE 88–118; RESP 14; TEMP 35.7–37; O2SAT 100; BMI 33.9
[2025-01-14 04:54] LABS: Bilirubin Urine Negative (Negative); Blood Urine Negative (Negative); Glucose Urine UA Negative (Normal); Ketones Urine Negative (Negative); Leukocyte Esterase Urine 3+ (Negative); Nitrate Urine Negative (Negative); Protein Urine Trace (Negative); Specific Gravity, Urine 1.017 (1.005-1.030); Urine Appearance Cloudy (CLEAR); Urine Color Yellow (Yellow); pH Urine 7.5 (5-7)
[2025-01-14 04:59] LABS: Add Urine Microscopic? YES; Bacteria Urine Trace /hpf; Hyaline Casts Urine 1.65 /lpf; RBC Urine 0-2 /hpf (0-2); WBC Urine 21-50 /hpf (0-5)
[2025-01-14 05:17] LABS: Add Urine Culture? No; UA Slide Review UA Slide Review Perf
[2025-01-14] MEDS: ceFAZolin 1,000 mg SDV 1000 MG IVP (06:19)
[2025-01-14] MEDS: lactated ringers 1,000 ML 999 ML IV (06:25)
[2025-01-14] MEDS: acetaminophen 500 mg Tablet 1000 MG PO (06:25)
== END 2025-01-14 07:14 | disposition home or self-care (01) ==
LOC: OPOB 03:27 → OBGYN 03:28
PROVIDERS: PCP Family Medicine; Visit Provider Obstetrics & Gynecology
DX: O26.899 Other specified pregnancy related conditions, unspecified trimester (principal); Z3A.00 Weeks of gestation of pregnancy not specified; R10.9 Unspecified abdominal pain
CPT/HCPCS: 59025; 81001; 99211; J0690; J7120; J9999

== ENCOUNTER 2025-01-18 04:25 | Outpatient (CLI) | payer MEDICAID, SELFPAY ==
[2025-01-18] VITALS (10 sets, daily range): BP systolic 122–134; BP diastolic 62–77; PULSE 88–108; RESP 15; BMI 34.2
[2025-01-18] MEDS: vancomycin 2,000 MG/400 ML PIGGYBACK 266.67 MG IV (05:20)
--- NOTE | 2025-01-18 05:26 | P.TNLD_ITS ---
OB L&D Triage Visit Information: Date of evaluation: 01/18/25 Evaluation: station: -3 Vital signs: Vital Signs - 24 hr 01/18/25 04:57 01/18/25 04:57 01/18/25 05:00 Pulse Rate 103 H Respiratory Rate 15 15 Blood Pressure 127/72 01/18/25 05:15 Pulse Rate 103 H Respiratory Rate Blood Pressure 132/66 Care JENNA Calculator Estimated Delivery Date Method Current WG Current Estimate 03/01/25 Ultrasound #1 34w 0d Specific Issues/Plans * HX LEEP X 3 (recently 08/2023) --cx length at 24,25,26,28 (most recent 1.54cm) * KARLA 1 * GBS CARRIER; treated on 11/10/2024--GBS negative urine culture on 12/01/2024 * PROTEIN S DEFICIENCY-- on lovenox; needs testing outside of * MARIJUANA USE - has not quit * NICOTINE USE- has not quit (24wks) * ANXIETY /DEPRESSION * DESIRES STERILIZATION--counseling and Medicaid papers signed 12/09/2024 * -L-O-W- -L--Y-I-N-G- -L-E-N-C-E-N-T-A- ----- -l-o-e-o-l-v-e-d- -a-t- -2-0- -w-k-s----- -n-o-w- -p-j-q-e-r-i-o-r- * -J-G-X-D-O-F-R-I-O-N- -B-L-E-E-D- --- -P-A-B-O-L-V-E-D- Coding Level of Care Code Acute Code for Chg Fwd
--- NOTE | 2025-01-18 05:26 | PM.OBTRLD ---
OB L&D Triage Visit Information: Date of evaluation: 01/18/25 Evaluation: station: -3 Vital signs: Vital Signs - 24 hr 01/18/25 04:57 01/18/25 04:57 01/18/25 05:00 Pulse Rate 103 H Respiratory Rate 15 15 Blood Pressure 127/72 01/18/25 05:15 Pulse Rate 103 H Respiratory Rate Blood Pressure 132/66 Care JENNA Calculator Estimated Delivery Date Method Current WG Current Estimate 03/01/25 Ultrasound #1 34w 0d Specific Issues/Plans HX LEEP X 3 (recently 08/2023) --cx length at 24,25,26,28 (most recent 1.54cm) KARLA 1 GBS CARRIER; treated on 11/10/2024--GBS negative urine culture on 12/01/2024 PROTEIN S DEFICIENCY-- on lovenox; needs testing outside of MARIJUANA USE - has not quit NICOTINE USE- has not quit (24wks) ANXIETY /DEPRESSION DESIRES STERILIZATION--counseling and Medicaid papers signed 12/09/2024 <del>LOW</del> <del>LYING</del> <del>PLACENTA</del> <del>--</del> <del>resolved</del> <del>at</del> <del>20</del> <del>wks--</del> <del>now</del> <del>anterior</del> <del>SUBCHORION</del> <del>BLEED</del> <del>-</del> <del>RESOLVED</del> Coding Level of Care Code Acute Code for Chg Fwd
--- NOTE | 2025-01-18 05:27 | PM.OPHPUD ---
Labor & Delivery H&P Update Date of Procedure: January 18, 2025 Date H&P Performed: 01/06/25 Changes to previous documentation: 24-year-old female G6, P3 with unknown LMP and JENNA of 03/01/2025 based off 7-week ultrasound placing patient at 34 weeks gestation. Patient was seen on labor and delivery triage with complaints of spontaneous rupture of fluid at 0330 today. Patient denies bleeding or vaginal pain. Patient has been seen at [facility] and getting serial ultrasounds due to history protein S deficiency currently being treated with Lovenox 40 mg subcutaneously daily, last taken 01/16/2025. Patient also gives history of a shortened cervix due to LEEP x 3 due to KARLA-1. Patient states her [facility] last visit that she had an ultrasound on 01/03/2025 and she was measuring 35 weeks at her 33-week visit. Patient has history of positive GBS status from previous pregnancies. Patient gives history of depression with severe psychotic symptoms and PTSD chronic. Social history?patient admits to vaping daily before and throughout , also marijuana use weekly. EFM?category 1 Contractions?none Pelvic exam?cervix 3 cm / 90%/-3 vertex presentation by bedside ultrasound. Gross clear fluid noted. OB history 1. 09/2016, SAB 8 weeks gestation, no interventions 2. 2018 viable boy, 5 pounds 9 ounce, 37 weeks gestation in [place]. History of labor at 34 weeks gestation. Treated with Lovenox for protein S deficiency as well as vaginal progesterone from the first trimester. 3. 2019 SAB 5 weeks no interventions. 4. 2020 viable boy 5 pounds 11 ounces, 38 weeks gestation in [place]. Treated with Lovenox for protein S deficiency, otherwise no complications. 5. 2022 viable girl 5 pounds 11 ounces at 39 weeks gestation, [place]. Patient treated with Lovenox for protein S deficiency. No complications. 6. Current , has had 2 steroid treatments at 24 weeks and at 30 weeks gestation. Admission Diagnosis: Preop diagnosis: 1. 34-week gestation with SROM 2. Protein S deficiency treated with Loven Primary indication for procedure: Will transfer patient to [facility] facility due to 34-week gestation and for NICU needs. Planned procedure: 1. Reviewed with patient at 34 weeks gestation we will attempt transfer to high risk facility with an NICU for baby may need higher level care. Patient verbalizes understanding, and consent obtained. 2. Vancomycin IV piggyback for positive GBS status (previous ) Related Problem List Diagnoses (1) Protein S deficiency: (2) KARLA I (cervical intraepithelial neoplasia I): (3) History of LEEP (loop electrosurgical excision procedure) of cervix complicating : (4) Marijuana use: (5) Current nicotine use: (6) Supervision of other high-risk : (7) Anxiety and depression: (8) GBS (group B Streptococcus carrier), +RV culture, currently : (9) 34 weeks gestation of : (10) SROM (spontaneous rupture of membranes):
[2025-01-18 05:34] LABS: Nitrazine Paper, PH Positive
[2025-01-18 05:35] LABS: Basophils % 0.2 %; Eosinophils % 0.4 %; Hematocrit 32.7 % (36-47); Lymphocytes # 2.2 10^3/uL (0.8-4.8); Lymphocytes % 22.3 %; Mean Corpuscular HGB Conc 32.4 g/dL (30-55); Mean Corpuscular Hemoglobin 27.1 pg (27-33); Mean Corpuscular Volume 83.6 fl (85-98); Mean Platelet Volume 11.6 fL (7.4-10.4); Monocytes # 0.7 10^3/uL (0.2-0.9); Monocytes % 7.3 %; Neutrophils # 6.63 10^3/uL (1.8-7.7); Neutrophils % 68.8 %; Nucleated Red Blood Cells % 0 %; Platelet Count 233 10^3/cmm (157-399); Red Blood Count 3.91 10^6/uL (3.85-5.65); Red Cell Distribution Width 14.8 % (12.1-15.1); White Blood Count 9.64 10^3/uL (3.29-11.43)
--- NOTE | 2025-01-18 06:44 | PC.NURSE ---
this nurse called [facility] transport to request transport on pt @[phone], he told this nurse that he would send a vehicle right over. I then attempted to call [facility] transport again @[phone] to get an ETA, and he said he was waiting on shift change and that it would be after 0700.
--- NOTE | 2025-01-18 07:03 | PC.NURSE ---
Report given to Forrest Dorsey RN at 0700.
[2025-01-18 07:40] LABS: Bilirubin Urine Negative (Negative); Blood Urine Negative (Negative); Glucose Urine UA Negative (Normal); Ketones Urine Negative (Negative); Leukocyte Esterase Urine Negative (Negative); Nitrate Urine Negative (Negative); Protein Urine Negative (Negative); Specific Gravity, Urine 1.013 (1.005-1.030); Urine Appearance Clear (CLEAR); Urine Color Yellow (Yellow); Urobilinogen Urine 0.2 mg/dL (Negative)
[2025-01-18 08:24] LABS: Hyaline Casts Urine 0-4 /lpf; RBC Urine 0-4 /hpf (0-2); Squamous Epithelial Cell Urine 0-4 /hpf (0-5); UA Manual Slide Review YES; UA Slide Review UA Slide Review Perf; WBC Urine 0-4 /hpf (0-5)
== END 2025-01-18 07:44 | disposition other institution (70) ==
LOC: OPOB 04:33 → OBGYN 04:34
PROVIDERS: PCP Family Medicine; Visit Provider Obstetrics & Gynecology
DX: O26.899 Other specified pregnancy related conditions, unspecified trimester (principal); Z3A.00 Weeks of gestation of pregnancy not specified; N89.8 Other specified noninflammatory disorders of vagina
CPT/HCPCS: 36415; 59025; 81001; 83986; 85025; 99211; J3372